=== PATIENT | male | born 1940 | race Caucasian/White ===

== ENCOUNTER → 2017-07-07 | Outpatient (CLI) | payer MEDICARE, BC | END | disposition home or self-care (01) | LOC: LABWHC1 16:22 | PROVIDERS: ATTEND Otolaryngology | DX: H91.93 Unspecified hearing loss, bilateral (principal); H93.3X3 Disorders of bilateral acoustic nerves | CPT/HCPCS: 36415; 82565 ==

== ENCOUNTER → 2017-07-10 | Outpatient (CLI) | payer MEDICARE, BC ==
--- NOTE | 2017-07-10 07:50 | MR ---
EXAMINATION TYPE: MR iac wo/w con DATE OF EXAM: 07/10/2017 COMPARISON: NONE HISTORY: 76-year-old male Acoustic nerve disorder / Hearing loss, left greater than right. TECHNIQUE: Multiplanar, multisequence images of the brain and brainstem were acquired before and aft er administration of 9mL IV Gadavist. Diffusion weighted imaging was performed. Additional coned-do wn sequences through the internal auditory canals and posterior cranial fossa before and after IV con trast administration. FINDINGS: Diffusion weighted images demonstrate no evidence of an acute ischemic lesion in the brain. T2/FLAIR weighted sequences show [id number] scattered burden of bright white matter change part icularly in the periventricular deep white matter regions of both cerebral hemispheres. Midline structures demonstrate normal morphology. The craniocervical junction is normal. There is moderate generalized supratentorial volume loss. The ventricles are of normal caliber. The right vertebral artery is very diminutive and may terminate as a PICA. There is no evidence of an acute intracranial hemorrhage, infarct, mass, mass-effect or an extra-axia l fluid collection. There is no cerebellopontine angle mass. The internal auditory canals are symmetric. Brainstem and skull base abnormalities are not seen. Post contrast images demonstrate no evidence of pathologic enhancement in the posterior cranial fossa or the internal auditory canals. Possible dehiscence of the superior right semicircular canal, refer to T2 coronal image 16, series 30 1. There is no abnormal enhancement of the labyrinths. There is mild scattered partial opacification of the mastoid air cells. Trace mucosal thickening ethm oid air cells and maxillary sinuses. Globes are intact. IMPRESSION: 1. Possible dehiscence of the superior right semicircular canal. Limited assessment by MRI. Correlate with patient's symptoms. If indicated, temporal bone CT could better assess. 2. Otherwise, unremarkable acoustic MRI. 3. [id number] scattered burden of T2 bright white matter change, nonspecific, likely relating t o small vessel ischemic disease. 4. Moderate cerebral atrophy. No acute intracranial abnormality seen.
== END ==
LOC: RADMRIMAIN 05:58
PROVIDERS: ATTEND Otolaryngology
DX: G31.9 Degenerative disease of nervous system, unspecified (principal); H91.93 Unspecified hearing loss, bilateral; H93.3X3 Disorders of bilateral acoustic nerves
CPT/HCPCS: 70553; A9581

== ENCOUNTER 2018-12-19 18:48 | Inpatient (IN) | payer MEDICARE, BC ==
[2018-12-19] MEDS ORDERED: IBUPROFEN 600 MG TAB PO STA (19:01)
[2018-12-19] MEDS: SODIUM CHLORIDE 0.9% 500 ML 500 ML IV SCH ×2 (19:20→19:21)
[2018-12-19 19:24] LABS: Basophils % (A) 0 %; Eosinophils % (A) 0 %; Lymphocytes # (A) 0.3 k/uL (1.0-4.8); Lymphocytes % (A) 3 %; MCH 29.5 pg (25.0-35.0); MCHC 34.3 g/dL (31.0-37.0); MCV 85.9 fL (80.0-100.0); Mean Platelet Volume 6.9; Monocytes # (A) 0.1 k/uL (0-1.0); Monocytes % (A) 1 %; Neutrophils # (A) 8.3 k/uL (1.3-7.7); Neutrophils % (A) 95 %; Platelet Count 186 k/uL (150-450); RBC 4.08 m/uL (4.30-5.90); RDW 14.6 % (11.5-15.5); WBC 8.7 k/uL (3.8-10.6)
[2018-12-19 19:31] LABS: Partial Thromboplastin Time 26.3 sec (22.0-30.0); Prothrombin Time 11.1 sec (9.0-12.0)
[2018-12-19 19:32] LABS: Albumin 4.1 g/dL (3.5-5.0); Calcium 9.7 mg/dL (8.4-10.2); Potassium 4.2 mmol/L (3.5-5.1); Total Bilirubin 1.5 mg/dL (0.2-1.3); Total Protein 7.4 g/dL (6.3-8.2)
[2018-12-19 19:44] LABS: Appearance,Urine Cloudy (Clear); Bacteria,Urine Occasional /hpf; Bilirubin,Urine Negative (Negative); Blood,Urine Moderate (Negative); Color,Urine Yellow; Glucose,Urine (UA) Negative (Negative); Ketones,Urine Negative (Negative); Leukocyte Esterase,Urine Large (Negative); Mucus,Urine Rare /hpf; Nitrite,Urine Negative (Negative); PH, Urine 5.5 (5.0-8.0); Protein,Urine 1+ (Negative); RBC,Urine 81 /hpf (0-5); Specific Gravity,Urine 1.022 (1.001-1.035); Squamous Epithelial Cell,Urine <1 /hpf (0-4); Urobilinogen,Urine <2.0 mg/dL (<2.0); WBC,Urine 87 /hpf (0-5)
[2018-12-19] MEDS ORDERED: cefTRIAXone IN SWFI 1,000 MG/10 ML SYRINGE IVP STA (19:57)
--- NOTE | 2018-12-19 20:29 | CT ---
EXAMINATION TYPE: CT brain wo con DATE OF EXAM: 12/19/2018 COMPARISON: None HISTORY: ams CT DLP: 1141.4 mGycm Automated exposure control for dose reduction was used. FINDINGS: There is cerebral cortical atrophy. There is no mass effect nor midline shift. There is no sign of in tracranial hemorrhage. The calvarium is intact. IMPRESSION: CEREBRAL ATROPHY. NO ACUTE INTRACRANIAL ABNORMALITY.
--- NOTE | 2018-12-19 20:34 | CT ---
EXAMINATION TYPE: CT abdomen pelvis w con DATE OF EXAM: 12/19/2018 COMPARISON: None HISTORY: fever, confusion CT DLP: 2127.4 mGycm Automated exposure control for dose reduction was used. TECHNIQUE: Helical acquisition of images was performed from the lung bases through the pelvis. CONTRAST: Performed without Oral Contrast and with IV Contrast, patient injected with 80cc mL of Isovue 300. FINDINGS: There is some mild atelectasis at the lung bases. There is no pericardial effusion. There is no pleur al effusion. Liver shows no focal defect. Spleen is intact. There is small hiatal hernia. There is no evidence of a pancreatic mass. Gallbladder appears normal. Bile ducts are not dilated. There is no adrenal mass. There is 2 cm hypodense area medial left kidney consistent with cortical cy st. There is no hydronephrosis. Ureters are not dilated. There is no retroperitoneal adenopathy. Abdo valentin aorta is atheromatous. Bladder distends smoothly. There is mild urinary bladder wall thickening . There is no free fluid in the pelvis. There is no inguinal hernia. There is no mesenteric edema. Ther e is no ascites or free air. Appendix is not seen. There is no sign of thickened appendix. There is n o evidence of bowel obstruction. There is multilevel spondylotic changes in the lumbar spine. There is no compression fracture. The sotero ny pelvis appears intact. There is posterior L5-S1 disc herniation with some calcification. There is moderate L5-S1 bony spinal stenosis. IMPRESSION: MILD INFILTRATES AND ATELECTASIS AT THE LUNG BASES. MILD URINARY BLADDER WALL THICKENING COULD RELATE TO NONSPECIFIC CYSTITIS. SPINAL STENOSIS AT L5-S1. MULTILEVEL SPONDYLOTIC CHANGES.
[2018-12-19] MEDS ORDERED: MORPHINE SULFATE 4 MG/ML SYRINGE IVP STA (20:40)
--- NOTE | 2018-12-19 21:21 | ED ---
General Adult HPI - General Chief complaint: Altered Mental Status Stated complaint: Weakness Time Seen by Provider: 12/19/18 19:05 Source: patient, family, EMS Mode of arrival: EMS Limitations: language barrier - History of Present Illness Initial comments: The patient is a 78-year-old male who is status post TURP [address] Magallanes who presents to the emergency department with reported confusion. states that the patient initially did well upon discharge after his procedure. He has been urinating without difficulty. She then noted that the patient became more sleepy yesterday. States that he took naps All Day. The Patient Then Awoke This Morning and was acting more confused. She asked him if he had been getting to the bathroom to urinate he reported that he did however the never saw this. He barely ate anything today. The patient needed to be assisted to get around the house. The states she had a lot of difficulty moving him and therefore called EMS. There is no report of any blunt head trauma. The patient arrives and has 103 temp. The patient is reporting to lumbar back pain. states that this is his chronic pain. He denies any dysuria, hematuria or difficulty voiding. No cough. Denies any melanotic stools or hematochezia. No chest pain or shortness of breath. No sick contacts or recent travel. The remainder of the HPI is limited because the patient's current mentation - Related Data Home Medications Medication Instructions Recorded Confirmed Enalapril/Hydrochlorothiazide 1 tab PO DAILY 01/22/17 12/19/18 [Enalapril-Hctz 10-25 mg Tablet] Levothyroxine Sodium [Synthroid] 75 mcg PO DAILY 01/22/17 12/19/18 Simvastatin [Zocor] 20 mg PO HS 01/22/17 12/19/18 Allergies Allergy/AdvReac Type Severity Reaction Status Date / Time Penicillins Allergy Rash/Hives Verified 12/19/18 19:46 Review of Systems ROS Statement: Those systems with pertinent positive or pertinent negative responses have been documented in the HPI. ROS Other: All systems not noted in ROS Statement are negative. Past Medical History Past Medical History: Hyperlipidemia, Hypertension, Prostate Disorder, Thyroid Disorder History of Any Multi-Drug Resistant Organisms: None Reported Additional Past Surgical History / Comment(s): COLONOSCOPY. BILAT CATARACTS Past Anesthesia/Blood Transfusion Reactions: No Reported Reaction Past Psychological History: No Psychological Hx Reported Smoking Status: Former smoker Past Alcohol Use History: None Reported Past Drug Use History: None Reported - Past Family History Mother Family Medical History: No Reported History General Exam Limitations: altered mental status General appearance: lethargic Head exam: Present: atraumatic, normocephalic, normal inspection Eye exam: Present: normal appearance, PERRL, EOMI. Absent: scleral icterus, c onjunctival injection, periorbital swelling ENT exam: Present: normal exam, mucous membranes moist Neck exam: Present: normal inspection. Absent: tenderness, meningismus, lymphadenopathy Respiratory exam: Present: rales (at the bases). Absent: respiratory distress, wheezes, rhonchi, stridor Cardiovascular Exam: Present: regular rate, normal rhythm, normal heart sounds. Absent: systolic murmur, diastolic murmur, rubs, gallop, clicks GI/Abdominal exam: Present: soft, normal bowel sounds. Absent: distended, tenderness, guarding, rebound, rigid exam: Present: other (mild swelling to penile shaft) Extremities exam: Present: normal inspection, full ROM, normal capillary refill. Absent: tenderness, pedal edema, joint swelling, calf tenderness Back exam: Present: normal inspection Neurological exam: Present: alert, oriented X3, CN II-XII intact Psychiatric exam: Present: normal affect, normal mood Skin exam: Present: warm, dry, intact, normal color. Absent: rash Course Vital Signs 12/19/18 12/19/18 12/19/18 19:02 19:22 20:06 Temperature 102.8 F H 101.3 F H Pulse Rate 93 90 Pulse Rate [ Pulse Oximetery ] Respiratory 18 18 Rate Blood Pressure 140/77 140/77 Blood Pressure [Right Arm] O2 Sat by Pulse 98 98 Oximetry 12/19/18 12/19/18 12/19/18 20:26 22:05 22:08 Temperature 97.4 F L 98.3 F Pulse Rate 93 89 Pulse Rate [ 89 Pulse Oximetery ] Respiratory 20 18 20 Rate Blood Pressure 120/56 102/58 Blood Pressure 91/45 [Right Arm] O2 Sat by Pulse 95 93 L 93 L Oximetry EKG Findings - EKG Comments: EKG Findings:: EKG demonstrates a sinus rhythm with first-degree AV block. Rate of 93. UT interval 264. QRS 92. QTC 460. No acute ST segment examination depressions concerning for ischemic changes Medical Decision Making - Medical Decision Making Upon arrival the patient is placed into room 5. A thorough history and physical exam is performed. IV was established by EMS. I did provide the patient with a 2 L bolus of normal saline for sepsis protocol. He is also given Motrin for fever control. I did recommend laboratory studies and a urinalysis. I recommended a chest x-ray, CT neck patient's brain and abdomen. does agree to this. We did bladder scan the patient's. He does have 30 mL on bladder scan. He then voided approximately 40 mL. Urine is dark. Physical exam demonstrates mild swelling to the patient's penile shaft just below the glans. I did perform a rectal exam and the patient does have tenderness to palpation of the prostate. Laboratory studies demonstrate a lactic acid of 3.9. CPK is elevated at 471. Urinalysis shows moderate blood, large leukocyte esterase, 81 red blood cells, 87 red blood cells, occasional bacteria and rare mucous. Influenza is negative. Chest x-ray demonstrates cardiomegaly with mild pulmonary fibrosis. Abdomen and pelvis CT demonstrates signs of cystitis. There is mild infiltrate at the lung bases. Spinal stenosis at L5-S1. CT of the brain demonstrates cerebral atrophy. I discussed these results with the patient's family. He is much more arousable in the exam room. I did recommend hospital admission. I called and discussed the case with Dr. Viera who accepted admission. Called and discussed the case with Dr. Silva will be aware of the patient's consult. I will cover the patient with Levaquin because of the possibility of pneumonia. The patient remained in hemodynamically stable condition and was transported to the floor - Lab Data Result diagrams: 12/21/18 11:33 12/21/18 05:43 Lab Results 12/19/18 12/19/18 12/19/18 Range/Units 19:10 19:10 19:10 WBC 8.7 (3.8-10.6) k/uL RBC 4.08 L (4.30-5.90) m/uL Hgb 12.0 L (13.0-17.5) gm/dL Hct 35.0 L (39.0-53.0) % MCV 85.9 (80.0-100.0) fL MCH 29.5 (25.0-35.0) pg MCHC 34.3 (31.0-37.0) g/dL RDW 14.6 (11.5-15.5) % Plt Count 186 (150-450) k/uL Neutrophils % 95 % Lymphocytes % 3 % Monocytes % 1 % Eosinophils % 0 % Basophils % 0 % Neutrophils # 8.3 H (1.3-7.7) k/uL Lymphocytes # 0.3 L (1.0-4.8) k/uL Monocytes # 0.1 (0-1.0) k/uL Eosinophils # 0.0 (0-0.7) k/uL Basophils # 0.0 (0-0.2) k/uL PT (9.0-12.0) sec INR (<1.2) APTT (22.0-30.0) sec Sodium 139 (137-145) mmol/L Potassium 4.2 (3.5-5.1) mmol/L Chloride 104 (98-107) mmol/L Carbon Dioxide 22 (22-30) mmol/L Anion Gap 13 mmol/L BUN 32 H (9-20) mg/dL Creatinine 1.17 (0.66-1.25) mg/dL Est GFR (CKD-EPI)AfAm 69 (>60 ml/min/1.73 sqM) Est GFR (CKD-EPI)NonAf 59 (>60 ml/min/1.73 sqM) Glucose 139 H (74-99) mg/dL Lactic Ac Sepsis Rflx Plasma Lactic Acid Eric 3.9 H* (0.7-2.0) mmol/L Calcium 9.7 (8.4-10.2) mg/dL Total Bilirubin 1.5 H (0.2-1.3) mg/dL AST 57 (17-59) U/L ALT 57 (21-72) U/L Alkaline Phosphatase 68 (38-126) U/L Creatine Kinase (55-170) U/L Total Protein 7.4 (6.3-8.2) g/dL Albumin 4.1 (3.5-5.0) g/dL Urine Color Urine Appearance (Clear) Urine pH (5.0-8.0) Ur Specific [place] (1.001-1.035) Urine Protein (Negative) Urine Glucose (UA) (Negative) Urine Ketones (Negative) Urine Blood (Negative) Urine Nitrite (Negative) Urine Bilirubin (Negative) Urine Urobilinogen (<2.0) mg/dL Ur Leukocyte Esterase (Negative) Urine RBC (0-5) /hpf Urine WBC (0-5) /hpf Ur Squamous Epith Cells (0-4) /hpf Urine Bacteria (None) /hpf Urine Mucus (None) /hpf Influenza Type A RNA (Not Detectd) Influenza Type B (PCR) (Not Detectd) 12/19/18 12/19/18 12/19/18 Range/Units 19:10 19:10 19:15 WBC (3.8-10.6) k/uL RBC (4.30-5.90) m/uL Hgb (13.0-17.5) gm/dL Hct (39.0-53.0) % MCV (80.0-100.0) fL MCH (25.0-35.0) pg MCHC (31.0-37.0) g/dL RDW (11.5-15.5) % Plt Count (150-450) k/uL Neutrophils % % Lymphocytes % % Monocytes % % Eosinophils % % Basophils % % Neutrophils # (1.3-7.7) k/uL Lymphocytes # (1.0-4.8) k/uL Monocytes # (0-1.0) k/uL Eosinophils # (0-0.7) k/uL Basophils # (0-0.2) k/uL PT 11.1 (9.0-12.0) sec INR 1.0 (<1.2) APTT 26.3 (22.0-30.0) sec Sodium (137-145) mmol/L Potassium (3.5-5.1) mmol/L Chloride (98-107) mmol/L Carbon Dioxide (22-30) mmol/L Anion Gap mmol/L BUN (9-20) mg/dL Creatinine (0.66-1.25) mg/dL Est GFR (CKD-EPI)AfAm (>60 ml/min/1.73 sqM) Est GFR (CKD-EPI)NonAf (>60 ml/min/1.73 sqM) Glucose (74-99) mg/dL Lactic Ac Sepsis Rflx Plasma Lactic Acid Eric (0.7-2.0) mmol/L Calcium (8.4-10.2) mg/dL Total Bilirubin (0.2-1.3) mg/dL AST (17-59) U/L ALT (21-72) U/L Alkaline Phosphatase (38-126) U/L Creatine Kinase 471 H (55-170) U/L Total Protein (6.3-8.2) g/dL Albumin (3.5-5.0) g/dL Urine Color Urine Appearance (Clear) Urine pH (5.0-8.0) Ur Specific [place] (1.001-1.035) Urine Protein (Negative) Urine Glucose (UA) (Negative) Urine Ketones (Negative) Urine Blood (Negative) Urine Nitrite (Negative) Urine Bilirubin (Negative) Urine Urobilinogen (<2.0) mg/dL Ur Leukocyte Esterase (Negative) Urine RBC (0-5) /hpf Urine WBC (0-5) /hpf Ur Squamous Epith Cells (0-4) /hpf Urine Bacteria (None) /hpf Urine Mucus (None) /hpf Influenza Type A RNA Not Detected (Not Detectd) Influenza Type B (PCR) Not Detected (Not Detectd) 12/19/18 12/19/18 Range/Units 19:30 19:33 WBC (3.8-10.6) k/uL RBC (4.30-5.90) m/uL Hgb (13.0-17.5) gm/dL Hct (39.0-53.0) % MCV (80.0-100.0) fL MCH (25.0-35.0) pg MCHC (31.0-37.0) g/dL RDW (11.5-15.5) % Plt Count (150-450) k/uL Neutrophils % % Lymphocytes % % Monocytes % % Eosinophils % % Basophils % % Neutrophils # (1.3-7.7) k/uL Lymphocytes # (1.0-4.8) k/uL Monocytes # (0-1.0) k/uL Eosinophils # (0-0.7) k/uL Basophils # (0-0.2) k/uL PT (9.0-12.0) sec INR (<1.2) APTT (22.0-30.0) sec Sodium (137-145) mmol/L Potassium (3.5-5.1) mmol/L Chloride (98-107) mmol/L Carbon Dioxide (22-30) mmol/L Anion Gap mmol/L BUN (9-20) mg/dL Creatinine (0.66-1.25) mg/dL Est GFR (CKD-EPI)AfAm (>60 ml/min/1.73 sqM) Est GFR (CKD-EPI)NonAf (>60 ml/min/1.73 sqM) Glucose (74-99) mg/dL Lactic Ac Sepsis Rflx Y Plasma Lactic Acid Eric (0.7-2.0) mmol/L Calcium (8.4-10.2) mg/dL Total Bilirubin (0.2-1.3) mg/dL AST (17-59) U/L ALT (21-72) U/L Alkaline Phosphatase (38-126) U/L Creatine Kinase (55-170) U/L Total Protein (6.3-8.2) g/dL Albumin (3.5-5.0) g/dL Urine Color Yellow Urine Appearance Cloudy (Clear) Urine pH 5.5 (5.0-8.0) Ur Specific [place] 1.022 (1.001-1.035) Urine Protein 1+ H (Negative) Urine Glucose (UA) Negative (Negative) Urine Ketones Negative (Negative) Urine Blood Moderate H (Negative) Urine Nitrite Negative (Negative) Urine Bilirubin Negative (Negative) Urine Urobilinogen <2.0 (<2.0) mg/dL Ur Leukocyte Esterase Large H (Negative) Urine RBC 81 H (0-5) /hpf Urine WBC 87 H (0-5) /hpf Ur Squamous Epith Cells <1 (0-4) /hpf Urine Bacteria Occasional H (None) /hpf Urine Mucus Rare H (None) /hpf Influenza Type A RNA (Not Detectd) Influenza Type B (PCR) (Not Detectd) Disposition Clinical Impression: Uremic encephalopathy, Fever, Status post recent transurethral resection of prostate Disposition: ADMITTED IP TO THIS HOSP Condition: Serious Is patient prescribed a controlled substance at d/c from ED?: No Decision to Admit Reason: Admit from EC Decision Date: 12/19/18 Decision Time: 21:40
--- NOTE | 2018-12-19 21:27 | XR ---
EXAMINATION TYPE: XR chest 2V DATE OF EXAM: 12/19/2018 COMPARISON: NONE HISTORY: Weakness TECHNIQUE: Frontal and lateral views of the chest are obtained. FINDINGS: Heart is enlarged. There is no gross heart failure. There is coarsening of the lung markin gs. There is no pulmonary consolidation. Thoracic aorta is atheromatous. IMPRESSION: Cardiomegaly. Mild pulmonary fibrosis. No heart failure.
[2018-12-19] MEDS ORDERED: LEVOFLOXACIN 750MG-D5W PMX 750 MG in DEXTROSE/WATER 1 150ML.BAG IVPB STA (21:41)
[2018-12-19] MEDS ORDERED: NALOXONE 0.4 MG/ML 1 ML VIAL IV PRN (21:42)
[2018-12-19] MEDS ORDERED: MORPHINE SULFATE 4 MG/ML SYRINGE IV PRN (21:42)
[2018-12-19 22:49] VITALS: BMI 33.1
[2018-12-20] MEDS: LEVOTHYROXINE 75 MCG TAB PO SCH (05:55)
[2018-12-20 06:19] LABS: Glucose,Whole Blood 131 mg/dL (75-99)
[2018-12-20 06:33] LABS: Basophils # (A) 0.1 k/uL (0-0.2); Basophils % (A) 1 %; Eosinophils % (A) 0 %; HCT 33.6 % (39.0-53.0); HGB 11.2 gm/dL (13.0-17.5); Lymphocytes # (A) 0.6 k/uL (1.0-4.8); Lymphocytes % (A) 6 %; MCH 29.6 pg (25.0-35.0); MCHC 33.4 g/dL (31.0-37.0); MCV 88.7 fL (80.0-100.0); Mean Platelet Volume 6.6; Monocytes # (A) 0.3 k/uL (0-1.0); Monocytes % (A) 3 %; Neutrophils % (A) 89 %; Platelet Count 163 k/uL (150-450); RBC 3.79 m/uL (4.30-5.90); RDW 14.8 % (11.5-15.5); WBC 10.2 k/uL (3.8-10.6)
[2018-12-20 06:46] LABS: Calcium 8.8 mg/dL (8.4-10.2); Potassium 3.9 mmol/L (3.5-5.1)
[2018-12-20] MEDS ORDERED: LISINOPRIL 20 MG TAB PO SCH (09:00)
[2018-12-20] MEDS ORDERED: HYDROCHLOROTHIAZIDE 25 MG TAB PO SCH (09:00)
[2018-12-20] MEDS: IBUPROFEN 400 MG TAB PO PRN ×2 (09:04→20:21)
--- NOTE | 2018-12-20 09:42 | P.CRDCN ---
History of Present Illness Consult date: 12/20/18 Consult reason: other Chief complaint: Fever back pain and not feeling well History of present illness: 78-year-old gentleman with history of hypothyroidism and dyslipidemia and hypertension who had a prostate surgery recently came to hospital complaining of back pain fever or fatigue and tiredness. He is been diagnosed with possible urosepsis started on IV antibiotics and admitted to hospital. His EKG initially showed what appears like a normal sinus rhythm with prolonged first-degree AV block. Subsequently patient has had accelerated junctional rhythm and second degree heart block intermittently. There are no pauses of more than 3 seconds. There is no history of syncope. There is no history of exertional fatigue and shortness of breath. There is no prior cardiac history of coronary artery disease or congestive heart failure. There is no history of atrial fibrillation. I will obtain a 2-D echo on him to evaluate his LV function and check his thyroid functions and watch him on telemetric. I patient is not in atrial fibrillation and there is no evidence of high-grade AV block at this time. If patient develops symptomatic high-grade AV block he will need a permanent pacemaker. If he declares himself has atrial fibrillation I'm going to start him on an anticoagulant. Review of Systems Constitutional: Reports fatigue Eyes: bilateral as per HPI Ears: bilateral: decreased hearing Ears, nose, mouth and throat: Reports as per HPI Cardiovascular: Denies as per HPI, Denies chest pain, Denies claudication, Denies decreased exercise tolerance, Denies dyspnea on exertion, Denies edema, Denies high blood pressure, Denies irregular heart beat, Denies leg edema, Denies lightheadedness, Denies orthopnea, Denies palpitations, Denies paroxysmal nocturnal dyspnea, Denies phlebitis, Denies rapid heart beat, Denies shortness of breath, Denies syncope Respiratory: Denies as per HPI, Denies congestion, Denies cough, Denies cough with sputum, Denies dyspnea, Denies excessive sputum, Denies hemoptysis, Denies home oxygen, Denies pain, Denies pain on inspiration, Denies pleurisy, Denies respiratory infections, Denies sleep apnea, Denies snoring, Denies wheezing Gastrointestinal: Denies as per HPI, Denies abdominal pain, Denies belching, Denies bloating, Denies BRBPR, Denies change in bowel habits, Denies coffee ground emesis, Denies constipation, Denies diarrhea, Denies dyspepsia, Denies early satiety, Denies excessive gas, Denies heartburn, Denies hematemesis, Denies hematochezia, Denies indigestion, Denies jaundice, Denies lactose intolerance, Denies loss of appetite, Denies melena, Denies nausea, Denies vomiting Genitourinary: Reports flank pain, Reports hematuria Musculoskeletal: Reports low back pain Musculoskeletal: absent: ankle pain Integumentary: Denies as per HPI, Denies acne, Denies boils, Denies brittle nails, Denies change in hair/nails, Denies color changes, Denies darkening of sk in, Denies depigmentation, Denies dryness, Denies foot/leg ulcers, Denies growths, Denies hirsutism, Denies lesions, Denies onychomycosis, Denies pruritus, Denies rash, Denies sores, Denies striae, Denies unusual bruising, Denies wounds Neurological: Denies as per HPI, Denies aphasia, Denies ataxia, Denies balance difficulties, Denies burning pain, Denies change in mentation, Denies change in smell/taste, Denies change in speech, Denies confusion, Denies convulsions, Den ies double vision, Denies gait dysfunction, Denies head injury, Denies headaches, Denies hearing difficulties, Denies lack of coordination, Denies loss of vision, Denies memory loss, Denies migraines, Denies motor disturbance, Denies numbness, Denies paralysis, Denies paresthesias, Denies seizures, Denies sensory deficit, Denies spasticity, Denies syncope, Denies tic, Denies tingling, Denies transient paralysis, Denies tremors, Denies vertigo, Denies weakness, Denies visual changes Psychiatric: Denies as per HPI, Denies anhedonia, Denies anxiety, Denies anxiety attacks, Denies change in appetite, Denies change in libido, Denies change in sleep habits, Denies confusion, Denies depression, Denies difficulty concentrating, Denies disorientation, Denies hallucinations, Denies hopelessness, Denies hypersomnia, Denies insomnia, Denies irritability, Denies memory loss, Denies mood swings, Denies paranoia, Denies sadness/tearfulness, Denies sleep disturbances, Denies suicidal ideation Endocrine: Denies as per HPI, Denies cold intolerance, Denies deepening of the voice, Denies excessive sweating, Denies excessive thirst, Denies fatigue, Jus es flushing, Denies heat intolerance, Denies high blood sugars, Denies increase in ring/shoe/hat size, Denies low blood sugars, Denies nocturia, Denies palpitations, Denies polydipsia, Denies polyphagia, Denies polyuria, Denies proptosis, Denies recent glucocorticoid use, Denies thyroid mass, Denies weight change Hematologic/Lymphatic: Denies as per HPI, Denies easy bleeding, Denies easy bruising, Denies lymphadenopathy, Denies lymphedema, Denies thrombophilia Allergic/Immunologic: Denies as per HPI, Denies allergic rhinitis, Denies anaphylaxis, Denies angioedema, Denies gluten intolerance, Denies persistent infections, Denies seasonal allergies, Denies urticaria, Denies wheezing Past Medical History Past Medical History: Hyperlipidemia, Hypertension, Prostate Disorder, Thyroid Disorder History of Any Multi-Drug Resistant Organisms: None Reported Additional Past Surgical History / Comment(s): COLONOSCOPY. BILAT CATARACTS Past Anesthesia/Blood Transfusion Reactions: No Reported Reaction Past Psychological History: No Psychological Hx Reported Smoking Status: Former smoker Past Alcohol Use History: None Reported Past Drug Use History: None Reported - Past Family History Mother Family Medical History: No Reported History Medications and Allergies Home Medications Medication Instructions Recorded Confirmed Type Enalapril/Hydrochlorothiazide 1 tab PO DAILY 01/22/17 12/19/18 History [Enalapril-Hctz 10-25 mg Tablet] Levothyroxine Sodium [Synthroid] 75 mcg PO DAILY 01/22/17 12/19/18 History Simvastatin [Zocor] 20 mg PO HS 01/22/17 12/19/18 History Allergies Allergy/AdvReac Type Severity Reaction Status Date / Time Penicillins Allergy Rash/Hives Verified 12/19/18 19:46 Physical Exam Vitals: Vital Signs Temp Pulse Pulse Resp BP BP Pulse Ox 12/20/18 03:52 98.4 F 78 21 120/77 94 L 12/19/18 23:41 98.1 F 82 20 96/58 94 L 12/19/18 22:08 98.3 F 89 20 91/45 93 L 12/19/18 22:05 97.4 F L 89 18 102/58 93 L 12/19/18 20:26 93 20 120/56 95 12/19/18 20:06 101.3 F H 12/19/18 19:22 90 18 140/77 98 12/19/18 19:02 102.8 F H 93 18 140/77 98 Intake and Output 12/19/18 12/20/18 12/20/18 22:59 06:59 14:59 Intake Total 75 240 Output Total 400 400 Balance -325 -160 Intake: Oral 75 240 Output: Urine 400 400 Other: Voiding Method Toilet Urinal # Voids 1 Weight 104.871 kg 109.4 kg General: The patient is awake and alert, in no distress, and does not appear acutely ill. Skin: Skin is warm and dry and no rashes or lesions are noted. Eye: Pupils are equal, round and reactive to light, extra-ocular movements are intact; there is normal conjunctiva bilaterally. Ears, nose, mouth and throat: There are moist mucous membranes and no oral lesions. Neck: The neck is supple, there is no tenderness or JVD. Cardiovascular: There is a regular rate and rhythm. No murmur, rub or gallop is appreciated. Respiratory: Lungs are clear to auscultation, respirations are non-labored, breath sounds are equal. Gastrointestinal: Soft, non-distended, non-tender abdomen without masses or organomegaly noted. There is no rebound or guarding present. Bowel sounds are unremarkable. Back: There is no tenderness to palpation in the midline. There is no obvious deformity. Musculoskeletal: Normal ROM, no tenderness, There is no pedal edema. There is no calf tenderness or swelling. Extremities: No edema. Vascular: Femoral pulse is normal. Posterior tibial pulses are normal .Dorsalis pedis is palpable. Neurological: CN II-XII intact. There are no obvious motor or sensory deficits. Speech is normal. Psychiatric: Cooperative, appropriate mood & affect, normal judgment. Results 12/20/18 05:53 12/20/18 05:53 Cardiac Enzymes 12/19/18 Range/Units 19:10 AST 57 (17-59) U/L Coagulation 12/19/18 Range/Units 19:10 PT 11.1 (9.0-12.0) sec APTT 26.3 (22.0-30.0) sec CBC 12/19/18 12/20/18 Range/Units 19:10 05:53 WBC 8.7 10.2 (3.8-10.6) k/uL RBC 4.08 L 3.79 L (4.30-5.90) m/uL Hgb 12.0 L 11.2 L (13.0-17.5) gm/dL Hct 35.0 L 33.6 L (39.0-53.0) % Plt Count 186 163 (150-450) k/uL Comprehensive Metabolic Panel 12/19/18 12/20/18 Range/Units 19:10 05:53 Sodium 139 141 (137-145) mmol/L Potassium 4.2 3.9 (3.5-5.1) mmol/L Chloride 104 108 H (98-107) mmol/L Carbon Dioxide 22 21 L (22-30) mmol/L BUN 32 H 30 H (9-20) mg/dL Creatinine 1.17 0.95 (0.66-1.25) mg/dL Glucose 139 H 126 H (74-99) mg/dL Calcium 9.7 8.8 (8.4-10.2) mg/dL AST 57 (17-59) U/L ALT 57 (21-72) U/L Alkaline Phosphatase 68 (38-126) U/L Total Protein 7.4 (6.3-8.2) g/dL Albumin 4.1 (3.5-5.0) g/dL Current Medications Generic Name Dose Route Start Last Admin Trade Name Freq PRN Reason Stop Dose Admin Atorvastatin Calcium 10 mg 12/20/18 21:00 Lipitor PO HS HUGO Hydrochlorothiazide 25 mg 12/20/18 09:00 12/20/18 08:56 Hydrodiuril PO 25 mg DAILY HUGO Administration Ibuprofen 600 mg 12/19/18 21:42 12/20/18 09:04 Motrin PO 600 mg Q6HR PRN Administration Mild Pain or Fever > 100.5 Levothyroxine Sodium 75 mcg 12/20/18 06:30 12/20/18 05:55 Synthroid PO 75 mcg DAILY@0630 HUGO Administration Lisinopril 20 mg 12/20/18 09:00 12/20/18 08:56 Zestril PO 20 mg DAILY HUGO Administration Morphine Sulfate 4 mg 12/19/18 21:42 Morphine Sulfate (Inj) IV Q4HR PRN Severe Pain Naloxone HCl 0.2 mg 12/19/18 21:42 Narcan IV Q2M PRN Opioid Reversal Intake and Output 12/19/18 12/20/18 12/20/18 22:59 06:59 14:59 Intake Total 75 240 Output Total 400 400 Balance -325 -160 Intake: Oral 75 240 Output: Urine 400 400 Other: Voiding Method Toilet Urinal # Voids 1 Weight 104.871 kg 109.4 kg 12/20/18 05:53 12/20/18 05:53 EKG Interpretations (text) Sinus rhythm with prolonged first-degree AV block Intermittent episodes of second-degree heart block Junctional rhythm Assessment and Plan Assessment: Status post recent prostate surgery with possible sepsis Hypertension Lipidemia Second-degree heart block Continue IV antibiotics blood cultures 2-D echo to check thyroid functions continue to watch him on telemetric
[2018-12-20 10:20] LABS: T4, Free (Free Thyroxine) 0.96 ng/dL (0.78-2.19)
[2018-12-20] MEDS ORDERED: VANCOMYCIN IV PER PHARMACY 1 EACH MISC MISCELLANE PRN (11:09)
[2018-12-20] MEDS ORDERED: VANCOMYCIN 2,000 MG in SODIUM CHLORIDE 0.9% 500 ML 500 ML IVPB ONE (11:45)
[2018-12-20 12:01] LABS: Glucose,Whole Blood 162 mg/dL (75-99)
--- NOTE | 2018-12-20 12:01 | ECHOF ---
Referral Reason:afib MEASUREMENTS -------- HEIGHT: 177.8 cm WEIGHT: 109.3 kg BP: 120/77 RVIDd: 3.4 cm (< 3.3) IVSd: 1.6 cm (0.6 - 1.1) LVIDd: 4.0 cm (3.9 - 5.3) LVPWd: 1.5 cm (0.6 - 1.1) IVSs: 1.8 cm LVIDs: 3.5 cm LVPWs: 2.0 cm LA Diam: 3.8 cm (2.7 - 3.8) LAESV Index (A-L): 39.10 ml/m Ao Diam: 3.9 cm (2.0 - 3.7) AV Cusp: 2.0 cm (1.5 - 2.6) MV EXCURSION: 20.477 mm (> 18.000) MV EF SLOPE: 132 mm/s (70 - 150) EPSS: 0.5 cm MV E Marshal: 1.64 m/s MV DecT: 280 ms MV A Marshal: 1.56 m/s MV E/A Ratio: 1.05 AV maxP.07 mmHg AV meanP.15 mmHg RAP: 5.00 mmHg RVSP: 47.78 mmHg FINDINGS -------- Atrial fibrillation. This was a technically adequate study. The left ventricular size is normal. There is moderate concentric left ventricular hypertrophy. O verall left ventricular systolic function is normal with, an EF between 60 - 65 %. The right ventricle is mildly enlarged. LA is moderately dilated 34-39 ml/m2 The right atrium is normal in size. 5 ml of Lumason was utilized for enhancement of images. Interatrial and interventricular septum intact. There is mild aortic valve sclerosis. There is mild aortic stenosis present. Peak/mean gradient a cross the Aortic Valve is 9.07mmHg / 5.15mmHg. The mitral valve leaflets are moderately thickened. Moderate mitral annular calcification present. There is trace to mild mitral regurgitation. The peak and mean MV gradients are 33.67mmHg 9.34mm Hg as measured by doppler. Moderate mitral stenosis. Mild tricuspid regurgitation present. There is mild to moderate pulmonary hypertension. The right ventricular systolic pressure, as measured by Doppler, is 47.78mmHg. The pulmonic valve was not well visualized. The aortic root is dilated measuring 3.9cm. Normal inferior vena cava with normal inspiratory collapse consistent with estimated right atrial pre ssure of 5 mmHg. The inferior vena cava is mildly dilated. There is no pericardial effusion. CONCLUSIONS -------- 1. Atrial fibrillation. 2. This was a technically adequate study. 3. The left ventricular size is normal. 4. There is moderate concentric left ventricular hypertrophy. 5. Overall left ventricular systolic function is normal with, an EF between 60 - 65 %. 6. The right ventricle is mildly enlarged. 7. LA is moderately dilated 34-39 ml/m2 8. The right atrium is normal in size. 9. 5 ml of Lumason was utilized for enhancement of images. 10. Interatrial and interventricular septum intact. 11. There is mild aortic valve sclerosis. 12. There is mild aortic stenosis present. 13. Peak/mean gradient across the Aortic Valve is 9.07mmHg / 5.15mmHg. 14. The peak and mean MV gradients are 33.67mmHg 9.34mmHg as measured by doppler. 15. Moderate mitral stenosis. 16. Mild tricuspid regurgitation present. 17. There is mild to moderate pulmonary hypertension. 18. The right ventricular systolic pressure, as measured by Doppler, is 47.78mmHg. 19. The pulmonic valve was not well visualized. 20. The aortic root is dilated measuring 3.9cm. 21. Normal inferior vena cava with normal inspiratory collapse consistent with estimated right atrial pressure of 5 mmHg. 22. The inferior vena cava is mildly dilated. 23. There is no pericardial effusion. MANAGER STORAGE: Luna Wall RDCS
--- NOTE | 2018-12-20 15:38 | P.HPIM ---
History of Present Illness 72-year-old pleasant gentleman came in with complaints of generalized weakness tiredness confusion fever chills has been going on for 2 days confusion since yesterday morning. Patient is excessively drowsy and sleepy. Patient is found to be febrile with significantly abnormal urine because of which patient is admitted for possible urinary tract infection patient also has bacteremia with group B streptococci. Repeat blood cultures will be obtained. Patient during the hospitalization was found to have second degree type I AV block because of which cardiology was consulted overnight echocardiogram was obtained any valvular vegetations. Patient denied any significant cough does have history of COPD. Chest x-ray did not show any pneumonic process except for mild pulmonary fibrosis patient did undergo transurethral resection of prostate about 10 days ago. Review of Systems REVIEW OF SYSTEMS: CONSTITUTIONAL: As mentioned in HPI HEENT: No recent visual problems or hearing problems. Denied any sore throat. CARDIOVASCULAR: No chest pain, orthopnea, PND, no palpitations, no syncope. PULMONARY: No shortness of breath, no cough, no hemoptysis. GASTROINTESTINAL: No diarrhea, no nausea, no vomiting, no abdominal pain. NEUROLOGICAL: No headaches, no weakness, no numbness. HEMATOLOGICAL: Denies any bleeding or petechiae. GENITOURINARY: Denies any burning micturition, frequency, or urgency. MUSCULOSKELETAL/RHEUMATOLOGICAL: Denies any joint pain, swelling, or any muscle pain. ENDOCRINE: Denies any polyuria or polydipsia. The rest of the 14-point review of systems is negative. Past Medical History Past Medical History: Hyperlipidemia, Hypertension, Prostate Disorder, Thyroid Disorder History of Any Multi-Drug Resistant Organisms: None Reported Additional Past Surgical History / Comment(s): COLONOSCOPY. BILAT CATARACTS Past Anesthesia/Blood Transfusion Reactions: No Reported Reaction Past Psychological History: No Psychological Hx Reported Smoking Status: Former smoker Past Alcohol Use History: None Reported Past Drug Use History: None Reported - Past Family History Mother Family Medical History: No Reported History Medications and Allergies Home Medications Medication Instructions Recorded Confirmed Type Enalapril/Hydrochlorothiazide 1 tab PO DAILY 01/22/17 12/19/18 History [Enalapril-Hctz 10-25 mg Tablet] Levothyroxine Sodium [Synthroid] 75 mcg PO DAILY 01/22/17 12/19/18 History Simvastatin [Zocor] 20 mg PO HS 01/22/17 12/19/18 History Allergies Allergy/AdvReac Type Severity Reaction Status Date / Time Penicillins Allergy Rash/Hives Verified 12/19/18 19:46 Physical Exam Vitals: Vital Signs Temp Pulse Pulse Resp BP BP Pulse Ox 12/20/18 08:00 98.4 F 77 105/63 98 12/20/18 03:52 98.4 F 78 21 120/77 94 L 12/19/18 23:41 98.1 F 82 20 96/58 94 L 12/19/18 22:08 98.3 F 89 20 91/45 93 L 12/19/18 22:05 97.4 F L 89 18 102/58 93 L 12/19/18 20:26 93 20 120/56 95 12/19/18 20:06 101.3 F H 12/19/18 19:22 90 18 140/77 98 12/19/18 19:02 102.8 F H 93 18 140/77 98 Intake and Output 12/20/18 12/20/18 12/20/18 06:59 14:59 22:59 Intake Total 75 480 Output Total 400 400 600 Balance -325 80 -600 Intake: Oral 75 480 Output: Urine 400 400 600 Other: Voiding Method Toilet Urinal # Voids 1 Weight 109.4 kg PHYSICAL EXAMINATION: GENERAL: The patient is alert and oriented x3, not in any acute distress. Well developed, well nourished. HEENT: Pupils are round and equally reacting to light. EOMI. No scleral icterus. No conjunctival pallor. Normocephalic, atraumatic. No pharyngeal erythema. No thyromegaly. CARDIOVASCULAR: S1 and S2 present. No murmurs, rubs, or gallops. PULMONARY: Chest is clear to auscultation, no wheezing or crackles. ABDOMEN: Soft, nontender, nondistended, normoactive bowel sounds. No palpable organomegaly. MUSCULOSKELETAL: No joint swelling or deformity. EXTREMITIES: No cyanosis, clubbing, or pedal edema. NEUROLOGICAL: Gross neurological examination did not reveal any focal deficits. SKIN: No rashes. Results CBC & Chem 7: 12/20/18 05:53 12/20/18 05:53 Labs: Abnormal Lab Results - Last 24 Hours (Table) 12/19/18 12/19/18 12/19/18 Range/Units 19:10 19:10 19:10 RBC 4.08 L (4.30-5.90) m/uL Hgb 12.0 L (13.0-17.5) gm/dL Hct 35.0 L (39.0-53.0) % Neutrophils # 8.3 H (1.3-7.7) k/uL Lymphocytes # 0.3 L (1.0-4.8) k/uL Chloride (98-107) mmol/L Carbon Dioxide (22-30) mmol/L BUN 32 H (9-20) mg/dL Glucose 139 H (74-99) mg/dL POC Glucose (mg/dL) (75-99) mg/dL Plasma Lactic Acid Eric 3.9 H* (0.7-2.0) mmol/L Total Bilirubin 1.5 H (0.2-1.3) mg/dL Creatine Kinase (55-170) U/L Urine Protein (Negative) Urine Blood (Negative) Ur Leukocyte Esterase (Negative) Urine RBC (0-5) /hpf Urine WBC (0-5) /hpf Urine Bacteria (None) /hpf Urine Mucus (None) /hpf 12/19/18 12/19/18 12/20/18 Range/Units 19:10 19:30 05:53 RBC 3.79 L (4.30-5.90) m/uL Hgb 11.2 L (13.0-17.5) gm/dL Hct 33.6 L (39.0-53.0) % Neutrophils # 9.0 H (1.3-7.7) k/uL Lymphocytes # 0.6 L (1.0-4.8) k/uL Chloride (98-107) mmol/L Carbon Dioxide (22-30) mmol/L BUN (9-20) mg/dL Glucose (74-99) mg/dL POC Glucose (mg/dL) (75-99) mg/dL Plasma Lactic Acid Eric (0.7-2.0) mmol/L Total Bilirubin (0.2-1.3) mg/dL Creatine Kinase 471 H (55-170) U/L Urine Protein 1+ H (Negative) Urine Blood Moderate H (Negative) Ur Leukocyte Esterase Large H (Negative) Urine RBC 81 H (0-5) /hpf Urine WBC 87 H (0-5) /hpf Urine Bacteria Occasional H (None) /hpf Urine Mucus Rare H (None) /hpf 12/20/18 12/20/18 12/20/18 Range/Units 05:53 06:18 11:50 RBC (4.30-5.90) m/uL Hgb (13.0-17.5) gm/dL Hct (39.0-53.0) % Neutrophils # (1.3-7.7) k/uL Lymphocytes # (1.0-4.8) k/uL Chloride 108 H (98-107) mmol/L Carbon Dioxide 21 L (22-30) mmol/L BUN 30 H (9-20) mg/dL Glucose 126 H (74-99) mg/dL POC Glucose (mg/dL) 131 H 162 H (75-99) mg/dL Plasma Lactic Acid Eric (0.7-2.0) mmol/L Total Bilirubin (0.2-1.3) mg/dL Creatine Kinase (55-170) U/L Urine Protein (Negative) Urine Blood (Negative) Ur Leukocyte Esterase (Negative) Urine RBC (0-5) /hpf Urine WBC (0-5) /hpf Urine Bacteria (None) /hpf Urine Mucus (None) /hpf Microbiology - Last 24 Hours (Table) 12/19/18 19:10 Blood Culture Gram Stain - Preliminary Blood Blood Culture - Preliminary Strep agalactiae - (group b) 12/19/18 19:10 Blood Culture - Final Blood 12/19/18 19:30 Urine Culture - Preliminary Urine,Voided Thrombosis Risk Factor Assmnt - Choose All That Apply Each Factor Represents 1 point: History of prior major surgery (<1month), Obesity (BMI >25) Each Risk Factor Represents 3 Points: Age 75 years or older, History of DVT/PE Thrombosis Risk Factor Assessment Total Risk Factor Score: 8 Thrombosis Risk Factor Assessment Level: High Risk Assessment and Plan Plan: -Bacteremia and sepsis: Patient has group B streptococci which is typical lactate patient was initially started on Vanco mycin as patient is ALLERGIC to penicillins I believe patient may have UTI secondary to enterococcus. As nabeel su doesn't have any enterococcus Vanco mycin can disc in your patient will be continued on Rocephin 2 g infectious disease was consulted and repeat blood cultures will be obtained for today and tomorrow the possible source of infection can be UTI which cannot be ruled out as a source of infection at the possibility is low I'll repeat a chest x-ray tomorrow so far there is no evidence of pneumonia. There is no cellulitis. Other possible consideration isn't hepatitis C. If he has persistent bacteremia. -Benign prostatic hypertrophy with recent transurethral resection of prostate -Hyperlipidemia -Hypertension -Hypothyroidism -Second-degree type I AV block no further intervention at this time patient is a symptomatically from this echocardiogram was obtained and I reviewed the results of echocardiogram -Acute toxic encephalopathy from sepsis which improved at this time. DVT prophylaxis with subcutaneous heparin and GI prophylaxis with Pepcid
[2018-12-20] MEDS: HEPARIN SODIUM,PORCINE 5,000 UNIT/ML 1 ML VIAL SQ SCH ×2 (17:25→20:19)
--- NOTE | 2018-12-20 19:48 | P.GSCN ---
History of Present Illness Consult date: 12/20/18 Reason for Consult: UTI Requesting physician: Mary Conroy History of present illness: The patient is a 78-year-old white male with a several year history history of BPH with incomplete bladder emptying. He was initially treated with tamsulosin, and subsequently finasteride was added. He ultimately underwent a TURP on 12/10/2018. He was seen back in the office by Dr. Magallanes on December 15, and was voiding well at that time. However, he was admitted yesterday with fever presumed to be of urinary origin. He denies dysuria and hematuria. Review of Systems - Constitutional Reports chills, Reports fever - Genitourinary Denies dysuria, Denies hematuria Past Medical History Past Medical History: Hyperlipidemia, Hypertension, Prostate Disorder, Thyroid Disorder History of Any Multi-Drug Resistant Organisms: None Reported Additional Past Surgical History / Comment(s): COLONOSCOPY. BILAT CATARACTS Past Anesthesia/Blood Transfusion Reactions: No Reported Reaction Past Psychological History: No Psychological Hx Reported Smoking Status: Former smoker Past Alcohol Use History: None Reported Past Drug Use History: None Reported - Past Family History Mother Family Medical History: No Reported History Medications and Allergies Home Medications Medication Instructions Recorded Confirmed Type Enalapril/Hydrochlorothiazide 1 tab PO DAILY 01/22/17 12/19/18 History [Enalapril-Hctz 10-25 mg Tablet] Levothyroxine Sodium [Synthroid] 75 mcg PO DAILY 01/22/17 12/19/18 History Simvastatin [Zocor] 20 mg PO HS 01/22/17 12/19/18 History Allergies Allergy/AdvReac Type Severity Reaction Status Date / Time Penicillins Allergy Rash/Hives Verified 12/19/18 19:46 Surgical - Exam Vital Signs Temp Pulse Resp BP Pulse Ox 102.8 F H 93 18 140/77 98 12/19/18 19:02 12/19/18 19:02 12/19/18 19:02 12/19/18 19:02 12/19/18 19:02 - General well developed, well nourished, no distress - Abdomen Abdomen: soft, non tender, no guarding, no rigid, no rebound - Genitourinary normal penis with no external lesions, testicles non-tender - Psychiatric oriented to time, oriented to person, oriented to place, speech is normal, memory intact Results - Labs 12/20/18 05:53 12/20/18 05:53 Abnormal Lab Results - Last 24 Hours (Table) 12/19/18 12/19/18 12/19/18 Range/Units 19:10 19:10 19:10 RBC 4.08 L (4.30-5.90) m/uL Hgb 12.0 L (13.0-17.5) gm/dL Hct 35.0 L (39.0-53.0) % Neutrophils # 8.3 H (1.3-7.7) k/uL Lymphocytes # 0.3 L (1.0-4.8) k/uL Chloride (98-107) mmol/L Carbon Dioxide (22-30) mmol/L BUN 32 H (9-20) mg/dL Glucose 139 H (74-99) mg/dL POC Glucose (mg/dL) (75-99) mg/dL Plasma Lactic Acid Eric 3.9 H* (0.7-2.0) mmol/L Total Bilirubin 1.5 H (0.2-1.3) mg/dL Creatine Kinase (55-170) U/L Urine Protein (Negative) Urine Blood (Negative) Ur Leukocyte Esterase (Negative) Urine RBC (0-5) /hpf Urine WBC (0-5) /hpf Urine Bacteria (None) /hpf Urine Mucus (None) /hpf 12/19/18 12/19/18 12/20/18 Range/Units 19:10 19:30 05:53 RBC 3.79 L (4.30-5.90) m/uL Hgb 11.2 L (13.0-17.5) gm/dL Hct 33.6 L (39.0-53.0) % Neutrophils # 9.0 H (1.3-7.7) k/uL Lymphocytes # 0.6 L (1.0-4.8) k/uL Chloride (98-107) mmol/L Carbon Dioxide (22-30) mmol/L BUN (9-20) mg/dL Glucose (74-99) mg/dL POC Glucose (mg/dL) (75-99) mg/dL Plasma Lactic Acid Eric (0.7-2.0) mmol/L Total Bilirubin (0.2-1.3) mg/dL Creatine Kinase 471 H (55-170) U/L Urine Protein 1+ H (Negative) Urine Blood Moderate H (Negative) Ur Leukocyte Esterase Large H (Negative) Urine RBC 81 H (0-5) /hpf Urine WBC 87 H (0-5) /hpf Urine Bacteria Occasional H (None) /hpf Urine Mucus Rare H (None) /hpf 12/20/18 12/20/18 Range/Units 05:53 06:18 RBC (4.30-5.90) m/uL Hgb (13.0-17.5) gm/dL Hct (39.0-53.0) % Neutrophils # (1.3-7.7) k/uL Lymphocytes # (1.0-4.8) k/uL Chloride 108 H (98-107) mmol/L Carbon Dioxide 21 L (22-30) mmol/L BUN 30 H (9-20) mg/dL Glucose 126 H (74-99) mg/dL POC Glucose (mg/dL) 131 H (75-99) mg/dL Plasma Lactic Acid Eric (0.7-2.0) mmol/L Total Bilirubin (0.2-1.3) mg/dL Creatine Kinase (55-170) U/L Urine Protein (Negative) Urine Blood (Negative) Ur Leukocyte Esterase (Negative) Urine RBC (0-5) /hpf Urine WBC (0-5) /hpf Urine Bacteria (None) /hpf Urine Mucus (None) /hpf Microbiology - Last 24 Hours (Table) 12/19/18 19:10 Blood Culture Gram Stain - Preliminary Blood 12/19/18 19:10 Blood Culture - Final Blood 12/19/18 19:30 Urine Culture - Preliminary Urine,Voided Diabetes panel 12/19/18 12/20/18 Range/Units 19:10 05:53 Sodium 139 141 (137-145) mmol/L Potassium 4.2 3.9 (3.5-5.1) mmol/L Chloride 104 108 H (98-107) mmol/L Carbon Dioxide 22 21 L (22-30) mmol/L BUN 32 H 30 H (9-20) mg/dL Creatinine 1.17 0.95 (0.66-1.25) mg/dL Glucose 139 H 126 H (74-99) mg/dL Calcium 9.7 8.8 (8.4-10.2) mg/dL AST 57 (17-59) U/L ALT 57 (21-72) U/L Alkaline Phosphatase 68 (38-126) U/L Total Protein 7.4 (6.3-8.2) g/dL Albumin 4.1 (3.5-5.0) g/dL Calcium panel 12/19/18 12/20/18 Range/Units 19:10 05:53 Calcium 9.7 8.8 (8.4-10.2) mg/dL Albumin 4.1 (3.5-5.0) g/dL Pituitary panel 12/19/18 12/20/18 Range/Units 19:10 05:53 Sodium 139 141 (137-145) mmol/L Potassium 4.2 3.9 (3.5-5.1) mmol/L Chloride 104 108 H (98-107) mmol/L Carbon Dioxide 22 21 L (22-30) mmol/L BUN 32 H 30 H (9-20) mg/dL Creatinine 1.17 0.95 (0.66-1.25) mg/dL Glucose 139 H 126 H (74-99) mg/dL Calcium 9.7 8.8 (8.4-10.2) mg/dL Adrenal panel 12/19/18 12/20/18 Range/Units 19:10 05:53 Sodium 139 141 (137-145) mmol/L Potassium 4.2 3.9 (3.5-5.1) mmol/L Chloride 104 108 H (98-107) mmol/L Carbon Dioxide 22 21 L (22-30) mmol/L BUN 32 H 30 H (9-20) mg/dL Creatinine 1.17 0.95 (0.66-1.25) mg/dL Glucose 139 H 126 H (74-99) mg/dL Calcium 9.7 8.8 (8.4-10.2) mg/dL Total Bilirubin 1.5 H (0.2-1.3) mg/dL AST 57 (17-59) U/L ALT 57 (21-72) U/L Alkaline Phosphatase 68 (38-126) U/L Total Protein 7.4 (6.3-8.2) g/dL Albumin 4.1 (3.5-5.0) g/dL Assessment and Plan (1) Benign prostatic hyperplasia with lower urinary tract symptoms Current Visit: Yes Status: Acute Code(s): N40.1 - BENIGN PROSTATIC HYPERPLASIA WITH LOWER URINARY TRACT SYMP SNOMED Code(s): 644018793 (2) Status post recent transurethral resection of prostate Current Visit: Yes Status: Acute Code(s): Z98.890 - OTHER SPECIFIED POSTPROCEDURAL STATES SNOMED Code(s): 668260599 Plan: The patient's urine culture is negative. Blood cultures have shown group B strep. It does not appear that the fever is of urinary tract origin. I have no further recommendations at this time.
[2018-12-20] MEDS: FAMOTIDINE 20 MG TAB PO SCH (20:19)
[2018-12-20] MEDS: SIMVASTATIN 20 MG PO SCH (20:20)
--- NOTE | 2018-12-20 23:23 | P.CONS ---
History of Present Illness - Reason for Consult Consult date: 12/20/18 bacteremia Requesting physician: Russ Carver - Chief Complaint Fever with rigors and chills 2 days - History of Present Illness Patient is a 78-year-old male with past medical history significant for benign prostatic hypertrophy failing medical therapy the patient is status post TURP performed by urology on 12/09/2018 patient seemed to have some symptoms of rigors and chills since his surgical procedure however the patient becoming acutely ill the night before presentation to the hospital with rigors and chills feeling very weak and hadn't and no energy patient denies having any URI symptoms denies having any chest pain very minimal cough no nausea no vomiting no gout pain no diarrhea denies significant burning or frequency of urine with the symptoms the patient presented to the [facility] ER with the patient has been evaluated by the ER physician on arrival to the ER the patient was febrile with a temperature of 102 Fahrenheit mild tachycardia with heart rate of 93 patient 60 was negative for any pneumonia patient did have a positive UA, patient did have CT of abdominal pelvis did not show any inflammatory changes in the pelvis except some cystitis ,patient has been started on Rocephin 2 g daily the patient blood culture came back positive with group B strep that prompted this infectious disease consultation patient is feeling slightly better since admission to the hospital Review of Systems Positive point has been mentioned in the HPI rest of the systems are negative Past Medical History Past Medical History: Hyperlipidemia, Hypertension, Prostate Disorder, Thyroid Disorder History of Any Multi-Drug Resistant Organisms: None Reported Additional Past Surgical History / Comment(s): COLONOSCOPY. BILAT CATARACTS Past Anesthesia/Blood Transfusion Reactions: No Reported Reaction Past Psychological History: No Psychological Hx Reported Smoking Status: Former smoker Past Alcohol Use History: None Reported Past Drug Use History: None Reported - Past Family History Mother Family Medical History: No Reported History Medications and Allergies Home Medications Medication Instructions Recorded Confirmed Type Enalapril/Hydrochlorothiazide 1 tab PO DAILY 01/22/17 12/19/18 History [Enalapril-Hctz 10-25 mg Tablet] Levothyroxine Sodium [Synthroid] 75 mcg PO DAILY 01/22/17 12/19/18 History Simvastatin [Zocor] 20 mg PO HS 01/22/17 12/19/18 History Allergies Allergy/AdvReac Type Severity Reaction Status Date / Time Penicillins Allergy Rash/Hives Verified 12/19/18 19:46 Physical Exam Vitals: Vital Signs Temp Pulse Pulse Resp BP BP Pulse Ox 12/20/18 08:00 98.4 F 77 105/63 98 12/20/18 03:52 98.4 F 78 21 120/77 94 L 12/19/18 23:41 98.1 F 82 20 96/58 94 L 12/19/18 22:08 98.3 F 89 20 91/45 93 L 12/19/18 22:05 97.4 F L 89 18 102/58 93 L 12/19/18 20:26 93 20 120/56 95 12/19/18 20:06 101.3 F H 12/19/18 19:22 90 18 140/77 98 12/19/18 19:02 102.8 F H 93 18 140/77 98 Intake and Output 12/20/18 12/20/18 12/20/18 06:59 14:59 22:59 Intake Total 75 480 Output Total 400 400 600 Balance -325 80 -600 Intake: Oral 75 480 Output: Urine 400 400 600 Other: Voiding Method Toilet Urinal # Voids 1 Weight 109.4 kg GENERAL DESCRIPTION: An elderly male lying in bed, no distress. No tachypnea or accessory muscle of respiration use. HEENT: Shows Pallor , no scleral icterus. Oral mucous membrane is dry. No pharyn geal erythema or thrush NECK: Trachea central, no thyromegaly. LUNGS: Unlabored breathing. Clear to auscultation anteriorly. No wheeze or crackle. HEART: S1, S2, regular rate and rhythm. No loud murmur ABDOMEN: Soft, no tenderness , guarding or rigidity, no organomegaly EXTREMITIES: No edema of feet. SKIN: No rash, no masses palpable. NEUROLOGICAL: The patient is awake, alert, oriented x3, mood and affect normal. Results CBC & Chem 7: 12/20/18 05:53 12/20/18 05:53 Labs: Abnormal Lab Results - Last 24 Hours (Table) 12/19/18 12/19/18 12/19/18 Range/Units 19:10 19:10 19:10 RBC 4.08 L (4.30-5.90) m/uL Hgb 12.0 L (13.0-17.5) gm/dL Hct 35.0 L (39.0-53.0) % Neutrophils # 8.3 H (1.3-7.7) k/uL Lymphocytes # 0.3 L (1.0-4.8) k/uL Chloride (98-107) mmol/L Carbon Dioxide (22-30) mmol/L BUN 32 H (9-20) mg/dL Glucose 139 H (74-99) mg/dL POC Glucose (mg/dL) (75-99) mg/dL Plasma Lactic Acid Eric 3.9 H* (0.7-2.0) mmol/L Total Bilirubin 1.5 H (0.2-1.3) mg/dL Creatine Kinase (55-170) U/L Urine Protein (Negative) Urine Blood (Negative) Ur Leukocyte Esterase (Negative) Urine RBC (0-5) /hpf Urine WBC (0-5) /hpf Urine Bacteria (None) /hpf Urine Mucus (None) /hpf 12/19/18 12/19/18 12/20/18 Range/Units 19:10 19:30 05:53 RBC 3.79 L (4.30-5.90) m/uL Hgb 11.2 L (13.0-17.5) gm/dL Hct 33.6 L (39.0-53.0) % Neutrophils # 9.0 H (1.3-7.7) k/uL Lymphocytes # 0.6 L (1.0-4.8) k/uL Chloride (98-107) mmol/L Carbon Dioxide (22-30) mmol/L BUN (9-20) mg/dL Glucose (74-99) mg/dL POC Glucose (mg/dL) (75-99) mg/dL Plasma Lactic Acid Eric (0.7-2.0) mmol/L Total Bilirubin (0.2-1.3) mg/dL Creatine Kinase 471 H (55-170) U/L Urine Protein 1+ H (Negative) Urine Blood Moderate H (Negative) Ur Leukocyte Esterase Large H (Negative) Urine RBC 81 H (0-5) /hpf Urine WBC 87 H (0-5) /hpf Urine Bacteria Occasional H (None) /hpf Urine Mucus Rare H (None) /hpf 12/20/18 12/20/18 12/20/18 Range/Units 05:53 06:18 11:50 RBC (4.30-5.90) m/uL Hgb (13.0-17.5) gm/dL Hct (39.0-53.0) % Neutrophils # (1.3-7.7) k/uL Lymphocytes # (1.0-4.8) k/uL Chloride 108 H (98-107) mmol/L Carbon Dioxide 21 L (22-30) mmol/L BUN 30 H (9-20) mg/dL Glucose 126 H (74-99) mg/dL POC Glucose (mg/dL) 131 H 162 H (75-99) mg/dL Plasma Lactic Acid Eric (0.7-2.0) mmol/L Total Bilirubin (0.2-1.3) mg/dL Creatine Kinase (55-170) U/L Urine Protein (Negative) Urine Blood (Negative) Ur Leukocyte Esterase (Negative) Urine RBC (0-5) /hpf Urine WBC (0-5) /hpf Urine Bacteria (None) /hpf Urine Mucus (None) /hpf Microbiology - Last 24 Hours (Table) 12/19/18 19:10 Blood Culture Gram Stain - Preliminary Blood Blood Culture - Preliminary Strep agalactiae - (group b) 12/19/18 19:10 Blood Culture - Final Blood 12/19/18 19:30 Urine Culture - Preliminary Urine,Voided Assessment and Plan Assessment: 1-patient presented to hospital with sepsis in this patient who did have a fever tachycardia with the significant positive UA likely the source of this sepsis now with evidence of secondary bacteremia and the patient currently with no other clinical focus for this bacteremia (1) Sepsis Current Visit: Yes Status: Acute Code(s): A41.9 - SEPSIS, UNSPECIFIED ORGANISM SNOMED Code(s): 25646743 (2) Urinary tract infection Current Visit: Yes Status: Acute Code(s): N39.0 - URINARY TRACT INFECTION, SITE NOT SPECIFIED SNOMED Code(s): 12256866 (3) Bacteremia due to Streptococcus Current Visit: Yes Status: Acute Code(s): R78.81 - BACTEREMIA; B95.5 - UNSP STREPTOCOCCUS THE [facility] Code(s): 353273706791 Plan: 1-blood cultures repeated to document clearance of bacteremia 2-we will review the CT with the radiologist 3-Rocephin 2 g daily We will follow on clinical condition and cultures to further adjust medication if needed Thank you for this consultation will follow this patient with you Time with Patient: Greater than 30
[2018-12-21] MEDS ORDERED: VANCOMYCIN 1,750 MG in SODIUM CHLORIDE 0.9% 500 ML 500 ML IVPB SCH ×2
[2018-12-21 05:55] LABS: HCT 29.6 % (39.0-53.0); HGB 10.1 gm/dL (13.0-17.5); MCH 29.6 pg (25.0-35.0); MCHC 34.3 g/dL (31.0-37.0); MCV 86.5 fL (80.0-100.0); Mean Platelet Volume 7.1; Platelet Count 157 k/uL (150-450); Poikilocytosis Slight; RBC 3.42 m/uL (4.30-5.90); RDW 14.7 % (11.5-15.5); WBC 8.5 k/uL (3.8-10.6)
[2018-12-21 06:08] LABS: African American GFR (CKD) >90 (>60 ml/min/1.73 sqM); Anion Gap 9 mmol/L; Blood Urea Nitrogen 26 mg/dL (9-20); Calcium 8.5 mg/dL (8.4-10.2); Carbon Dioxide 19 mmol/L (22-30); Chloride 109 mmol/L (98-107); Glucose 122 mg/dL (74-99); Non-African American GFR(CKD) 84 (>60 ml/min/1.73 sqM); Potassium 3.4 mmol/L (3.5-5.1); Sodium 137 mmol/L (137-145)
[2018-12-21] MEDS: LEVOTHYROXINE 75 MCG TAB PO SCH (06:12)
[2018-12-21 06:23] LABS: C Reactive Protein 178.5 mg/L (<10.0)
[2018-12-21 06:44] LABS: Erythrocyte Sedimentation Rate 35 mm/hr (0-15)
[2018-12-21] MEDS: FAMOTIDINE 20 MG TAB PO SCH ×2 (08:52→22:16)
[2018-12-21] MEDS: HEPARIN SODIUM,PORCINE 5,000 UNIT/ML 1 ML VIAL SQ SCH (08:52)
[2018-12-21] MEDS ORDERED: HEPARIN SODIUM,PORCINE 5,000 UNIT/ML 1 ML VIAL IV PRN (11:26)
[2018-12-21] MEDS ORDERED: HEPARIN SODIUM,PORCINE 5,000 UNIT/ML 1 ML VIAL IV ONE (11:26)
--- NOTE | 2018-12-21 11:33 | P.PN ---
Subjective Progress Note Date: 12/21/18 This is a 70-year-old gentleman with history of hyperlipidemia, hypertension, hypothyroidism, who recently underwent prostate surgery, presented to the hospital with symptoms of fever, fatigue and extreme tiredness. Patient has been diagnosed with urosepsis, he was having temperatures up to 102.8 during t his admission. This morning he is afebrile. His blood cultures did come back positive for strep B. His initial EKG showed a normal sinus rhythm, first- degree AV block, subsequently he had an accelerated junctional rhythm. This morning patient had an EKG performed which shows atrial fibrillation with controlled ventricular response. Patient has had no pauses noted on the monitor through the night. He did have an echocardiogram with Doppler study performed which revealed a normal left ventricular systolic function with no significant regurgitation noted. Blood pressure 122/60 with a heart rate in the 50s to 60s, 98% on 2 L of oxygen, temperature this morning 98.7. White blood cell count 8.5, hemoglobin 10.1, platelet count 157. Sed rate elevated at 35. Sodium 137, potassium 3.4, BUN 26 and creatinine 0.8. C-reactive protein 178.5. TSH is normal. Repeat chest x-ray was performed this morning and is yet pending. Objective - Vital Signs Vital signs: Vital Signs Temp 98.7 F 12/21/18 08:45 Pulse 48 L 12/21/18 08:45 Resp 16 12/21/18 08:45 BP 122/59 12/21/18 08:45 Pulse Ox 98 12/21/18 08:45 Intake & Output 12/20/18 12/21/18 12/21/18 18:59 06:59 18:59 Intake Total 840 120 Output Total 1000 350 Balance -160 -230 Weight 109 kg Intake: Oral 840 120 Output: Urine 1000 350 Other: Voiding Method Toilet Toilet Urinal Urinal # Voids 3 - Exam PHYSICAL EXAMINATION: GENERAL: 70-year-old gentleman in no acute distress at the time of my examination HEENT: Head is atraumatic, normocephalic. Pupils equal, round. Sclera anicteric. Conjunctiva are clear. Mucous membranes of the mouth are moist. Neck is supple. There is no elevated jugular venous pressure. No carotid bruit is heard. HEART EXAMINATION: Heart S1 and S2 irregularly irregular CHEST EXAMINATION: Lungs are clear to auscultation and precussion. No chest wall tenderness is noted on palpation or with deep breathing. ABDOMEN: Soft, nontender. Bowel sounds are heard. No organomegaly noted. EXTREMITIES: 2+ peripheral pulses with no evidence of peripheral edema and no calf tenderness noted. NEUROLOGIC patient is awake, alert and oriented 3 . . - Labs CBC & Chem 7: 12/21/18 05:43 12/21/18 05:43 Labs: Abnormal Lab Results - Last 24 Hours (Table) 12/20/18 12/21/18 12/21/18 Range/Units 11:50 05:43 05:43 RBC 3.42 L (4.30-5.90) m/uL Hgb 10.1 L (13.0-17.5) gm/dL Hct 29.6 L (39.0-53.0) % ESR 35 H (0-15) mm/hr Potassium 3.4 L (3.5-5.1) mmol/L Chloride 109 H (98-107) mmol/L Carbon Dioxide 19 L (22-30) mmol/L BUN 26 H (9-20) mg/dL Glucose 122 H (74-99) mg/dL POC Glucose (mg/dL) 162 H (75-99) mg/dL C-Reactive Protein 178.5 H (<10.0) mg/L Microbiology - Last 24 Hours (Table) 12/19/18 19:10 Blood Culture Gram Stain - Preliminary Blood Blood Culture - Preliminary Strep agalactiae - (group b) 12/19/18 19:30 Urine Culture - Final Urine,Voided 12/19/18 19:10 Blood Culture - Final Blood Assessment and Plan Plan: Assessment and plan #1 symptoms of weakness, fever, evidence of sepsis, likely urosepsis. Blood culture positive for strep B. #2 atrial fibrillation with slow ventricular response, new onset for the patient, paroxysmal #3 hyperlipidemia #4 hypertension #5 hypothyroidism #6 recent prostate surgery Plan We will discontinue the subcu heparin and start the patient on a heparin drip. He will require long-term anticoagulation for stroke prevention. We will discontinue the ibuprofen. Patient is currently on antibiotics. His heart rate this morning is in the 50s to 60s, not on any rate lowering medications. DNP note has been reviewed, I agree with a documented findings and plan of care. Patient was seen and examined.
--- NOTE | 2018-12-21 11:46 | XR ---
EXAMINATION TYPE: XR chest 1V portable DATE OF EXAM: 12/21/2018 COMPARISON: 12/19/2018 HISTORY: Abnormal clinical exam, lung crackles TECHNIQUE: Single frontal view of the chest is obtained. FINDINGS: Heart is prominent is atherosclerotic change aorta. Arthropathy of the shoulders. There is a coarsened interstitium. Basilar subsegmental consolidation noted. Hypertrophic and degenerative ch vlad of the spine. Interstitial prominence could secondary to interstitial congestion or pneumonitis. Chronic interstitial lung disease in the differential diagnosis. IMPRESSION: 1. Basilar atelectasis versus early infiltrate. Persistent interstitial prominence may been the basis of interstitial pneumonitis less likely venous congestion. Chronic lung interstitial disease also in the differential diagnosis. 2. Cardiomegaly.
[2018-12-21 12:14] LABS: Partial Thromboplastin Time 27.8 sec (22.0-30.0); Prothrombin Time 10.5 sec (9.0-12.0)
[2018-12-21 12:38] LABS: Basophils % (A) 0 %; Eosinophils # (A) 0.1 k/uL (0-0.7); Eosinophils % (A) 1 %; HGB 10.7 gm/dL (13.0-17.5); Lymphocytes # (A) 0.8 k/uL (1.0-4.8); Lymphocytes % (A) 9 %; MCH 29.2 pg (25.0-35.0); MCHC 33.4 g/dL (31.0-37.0); MCV 87.4 fL (80.0-100.0); Mean Platelet Volume 7.2; Monocytes # (A) 0.4 k/uL (0-1.0); Monocytes % (A) 4 %; Neutrophils # (A) 7.2 k/uL (1.3-7.7); Neutrophils % (A) 82 %; Platelet Count 171 k/uL (150-450); Poikilocytosis Slight; RBC 3.66 m/uL (4.30-5.90); RDW 14.8 % (11.5-15.5); WBC 8.8 k/uL (3.8-10.6)
[2018-12-21] MEDS: HEPARIN SOD,PORK IN 0.45% NACL 25,000 UNIT in 0.45% NACL 1 250ML.BAG IV SCH (12:51)
--- NOTE | 2018-12-21 14:19 | PN ---
PROGRESS NOTE DATE OF SERVICE: 12/21/2018 REASON FOR FOLLOWUP: Strep bacteremia. INTERVAL HISTORY: The patient is currently afebrile. The patient is breathing comfortably. Denies having any further rigors or chills. No chest pain, no shortness of breath. Occasional cough. No nausea, no vomiting. No abdominal pain and currently with no urinary symptoms. PHYSICAL EXAMINATION: Blood pressure 122/59 with a pulse of 40, temperature 98.7, he is 98% on 2 L nasal cannula. General description is an elderly male, lying in bed in no distress. RESPIRATORY SYSTEM: Unlabored breathing clear to auscultation anteriorly. HEART S1, S2. Regular rate and rhythm. ABDOMEN: Soft, no tenderness. EXTREMITIES: No edema of the feet. LABS: Hemoglobin is 10.7, white count 8.8. BUN of 26, creatinine 0.84. DIAGNOSTIC IMPRESSION AND PLAN: Patient admitted to the hospital with sepsis, evidence of Streptococcus agalactiae bacteremia. This patient did have recent urological procedure. The patient's CT was reviewed with radiologist, but no evidence of any abscess in the prostatic bed. Keep the patient on Rocephin. If the followup blood culture remains negative and clinically no evidence of deep infection, may finish therapy with oral antibiotics. Continue supportive care. MMODL / IJN: [id number] / MTDD
--- NOTE | 2018-12-21 15:44 | P.PN ---
Subjective -year-old male was admitted for sepsis bacteremia is stable. Patient has a Pablo catheter for benign prostatic hypertrophy, patient the is believed to have urinary tract infection. Patient is also being treated for atrial fibrillation but rate controlled patient is being started on IV heparin will be started on oral anticoagulation. Patient is feeling much better today Constitutional: Denied any fatigue denied any fever. Cardio vascular: denied any chest pain, palpitations Gastrointestinal denied any nausea vomiting Pulmonary: Denied any shortness of breath cough Neurologic denied any new focal deficits All inpatient medications were reviewed and appropriate changes in these medications as dictated in the interval history and assessment and plan. Objective - Vital Signs Vital signs: Vital Signs Temp 98.7 F 12/21/18 08:45 Pulse 55 L 12/21/18 12:05 Resp 16 12/21/18 12:05 BP 141/63 12/21/18 12:05 Pulse Ox 98 12/21/18 12:05 Intake & Output 12/20/18 12/21/18 12/21/18 18:59 06:59 18:59 Intake Total 840 120 530 Output Total 1000 350 200 Balance -160 -230 330 Weight 109 kg Intake: Intake, IV Titration 50 Amount cefTRIAXone 2 gm In 50 Sodium Chloride 0.9% 50 ml @ 100 mls/hr IVPB Q24HR [facility] Rx#:[id number] Oral 840 120 480 Output: Urine 1000 350 200 Other: Voiding Method Toilet Toilet Urinal Urinal # Voids 3 2 - Exam PHYSICAL EXAMINATION: GENERAL: The patient is alert and oriented x3, not in any acute distress. Well developed, well nourished. HEENT: Pupils are round and equally reacting to light. EOMI. No scleral icterus. No conjunctival pallor. Normocephalic, atraumatic. No pharyngeal erythema. No thyromegaly. CARDIOVASCULAR: S1 and S2 present. No murmurs, rubs, or gallops. PULMONARY: Chest is clear to auscultation, no wheezing or crackles. ABDOMEN: Soft, nontender, nondistended, normoactive bowel sounds. No palpable organomegaly. MUSCULOSKELETAL: No joint swelling or deformity. EXTREMITIES: No cyanosis, clubbing, or pedal edema. NEUROLOGICAL: Gross neurological examination did not reveal any focal deficits. SKIN: No rashes. - Labs CBC & Chem 7: 12/21/18 11:33 12/21/18 05:43 Labs: Abnormal Lab Results - Last 24 Hours (Table) 12/21/18 12/21/18 12/21/18 Range/Units 05:43 05:43 11:33 RBC 3.42 L 3.66 L (4.30-5.90) m/uL Hgb 10.1 L 10.7 L (13.0-17.5) gm/dL Hct 29.6 L 32.0 L (39.0-53.0) % Lymphocytes # 0.8 L (1.0-4.8) k/uL ESR 35 H (0-15) mm/hr Potassium 3.4 L (3.5-5.1) mmol/L Chloride 109 H (98-107) mmol/L Carbon Dioxide 19 L (22-30) mmol/L BUN 26 H (9-20) mg/dL Glucose 122 H (74-99) mg/dL C-Reactive Protein 178.5 H (<10.0) mg/L Microbiology - Last 24 Hours (Table) 12/20/18 11:42 Blood Culture - Preliminary Blood No Growth after 24 hours 12/19/18 19:10 Blood Culture Gram Stain - Preliminary Blood Blood Culture - Preliminary Strep agalactiae - (group b) 12/19/18 19:30 Urine Culture - Final Urine,Voided Assessment and Plan Plan: -Bacteremia and sepsis: Patient has group B streptococci possible source being urinary tract infection repeat cultures are negative patient is on Rocephin 2 g -Possible atrial fibrillation/flutter rate controlled was started on anticoagulation -Benign prostatic hypertrophy with recent transurethral resection of prostate -Hyperlipidemia -Hypertension -Hypothyroidism -Second-degree type I AV block no further intervention at this time -Acute toxic encephalopathy from sepsis which improved at this time. DVT prophylaxis with subcutaneous heparin and GI prophylaxis with Pepcid
[2018-12-21] MEDS: SIMVASTATIN 20 MG PO SCH (22:18)
[2018-12-22 04:06] LABS: Basophils % (A) 0 %; Eosinophils # (A) 0.1 k/uL (0-0.7); Eosinophils % (A) 1 %; HCT 30.1 % (39.0-53.0); HGB 10.1 gm/dL (13.0-17.5); Lymphocytes # (A) 0.9 k/uL (1.0-4.8); Lymphocytes % (A) 13 %; MCH 29.1 pg (25.0-35.0); MCHC 33.7 g/dL (31.0-37.0); MCV 86.5 fL (80.0-100.0); Mean Platelet Volume 8.7; Monocytes # (A) 0.3 k/uL (0-1.0); Monocytes % (A) 4 %; Neutrophils # (A) 5.4 k/uL (1.3-7.7); Neutrophils % (A) 77 %; Platelet Count 175 k/uL (150-450); Poikilocytosis Slight; RBC 3.48 m/uL (4.30-5.90); RDW 14.8 % (11.5-15.5)
[2018-12-22 04:58] LABS: African American GFR (CKD) >90 (>60 ml/min/1.73 sqM); Anion Gap 7 mmol/L; Blood Urea Nitrogen 26 mg/dL (9-20); Calcium 8.7 mg/dL (8.4-10.2); Carbon Dioxide 22 mmol/L (22-30); Chloride 109 mmol/L (98-107); Glucose 117 mg/dL (74-99); Non-African American GFR(CKD) 79 (>60 ml/min/1.73 sqM); Potassium 3.5 mmol/L (3.5-5.1); Sodium 138 mmol/L (137-145)
[2018-12-22] MEDS: LEVOTHYROXINE 75 MCG TAB PO SCH (05:52)
[2018-12-22] MEDS: FAMOTIDINE 20 MG TAB PO SCH ×2 (07:55→21:53)
[2018-12-22] MEDS: HEPARIN SOD,PORK IN 0.45% NACL 25,000 UNIT in 0.45% NACL 1 250ML.BAG IV SCH (07:56)
[2018-12-22] MEDS ORDERED: POTASSIUM CHLORIDE ER 20 MEQ TAB.ER PO STA (10:58)
--- NOTE | 2018-12-22 10:59 | P.PN ---
Subjective Progress Note Date: 12/22/18 This is a 70-year-old gentleman with history of hyperlipidemia, hypertension, hypothyroidism, who recently underwent prostate surgery, presented to the hospital with symptoms of fever, fatigue and extreme tiredness. Patient has been diagnosed with urosepsis, he was having temperatures up to 102.8 during t his admission. This morning he is afebrile. His blood cultures did come back positive for strep B. His initial EKG showed a normal sinus rhythm, first- degree AV block, subsequently he had an accelerated junctional rhythm. This morning patient had an EKG performed which shows atrial fibrillation with controlled ventricular response. Patient has had no pauses noted on the monitor through the night. He did have an echocardiogram with Doppler study performed which revealed a normal left ventricular systolic function with no significant regurgitation noted. Blood pressure 122/60 with a heart rate in the 50s to 60s, 98% on 2 L of oxygen, temperature this morning 98.7. White blood cell count 8.5, hemoglobin 10.1, platelet count 157. Sed rate elevated at 35. Sodium 137, potassium 3.4, BUN 26 and creatinine 0.8. C-reactive protein 178.5. TSH is normal. Repeat chest x-ray was performed this morning and is yet pending. 01/22/2019 Patient seen and examined this morning, very sleepy and tired today. He had ambulated up to the bathroom today, had a shower. Continues to be in atrial fibrillation this morning, while sleeping a heart rate goes down to the 40 range, while awake the heart rate is in the 50 range. I did have a lengthy discussion this morning with the daughter regarding anticoagulation, we are currently looking into Eliquis coverage for the patient. Blood pressure 125/60 with a heart rate in the 50s at present, 96% on room air. White blood cell count 7.0, hemoglobin 10.1, platelet count 175. Sodium 138, potassium 3.5, BUN 26 and creatinine 0.9. Objective - Vital Signs Vital signs: Vital Signs Temp 98.2 F 12/22/18 07:52 Pulse 51 L 12/22/18 07:52 Resp 18 12/22/18 07:52 BP 125/65 12/22/18 07:52 Pulse Ox 96 12/22/18 07:52 Intake & Output 12/21/18 12/22/18 12/22/18 18:59 06:59 18:59 Intake Total 530 351.213 400.216 Output Total 200 Balance 330 351.213 400.216 Weight 107 kg Intake: Intake, IV Titration 50 231.213 40.216 Amount Heparin Sod,Pork in 0.45% 181.213 40.216 NaCl 25,000 unit In 0.45 % NaCl 1 250ml.bag @ 9. 174 UNITS/KG/HR 10 mls/hr IV .Q24H HUGO Rx#: [id number] cefTRIAXone 2 gm In 50 50 Sodium Chloride 0.9% 50 ml @ 100 mls/hr IVPB Q24HR HUGO Rx#:[id number] Oral 480 120 360 Output: Urine 200 Other: Voiding Method Toilet Toilet Urinal Urinal # Voids 2 2 - Exam PHYSICAL EXAMINATION: GENERAL: 70-year-old gentleman in no acute distress at the time of my examination HEENT: Head is atraumatic, normocephalic. Pupils equal, round. Sclera anicteric. Conjunctiva are clear. Mucous membranes of the mouth are moist. Neck is supple. There is no elevated jugular venous pressure. No carotid bruit is heard. HEART EXAMINATION: Heart S1 and S2 normal CHEST EXAMINATION: Lungs are clear to auscultation and precussion. No chest wall tenderness is noted on palpation or with deep breathing. ABDOMEN: Soft, nontender. Bowel sounds are heard. No organomegaly noted. EXTREMITIES: 2+ peripheral pulses with no evidence of peripheral edema and no calf tenderness noted. NEUROLOGIC patient is awake, alert and oriented 3 . . - Labs CBC & Chem 7: 12/22/18 03:54 12/22/18 03:54 Labs: Abnormal Lab Results - Last 24 Hours (Table) 12/21/18 12/21/18 12/22/18 Range/Units 11:33 18:41 03:54 RBC 3.66 L 3.48 L (4.30-5.90) m/uL Hgb 10.7 L 10.1 L (13.0-17.5) gm/dL Hct 32.0 L 30.1 L (39.0-53.0) % Lymphocytes # 0.8 L 0.9 L (1.0-4.8) k/uL APTT 40.4 H (22.0-30.0) sec Chloride (98-107) mmol/L BUN (9-20) mg/dL Glucose (74-99) mg/dL 12/22/18 12/22/18 Range/Units 03:54 03:54 RBC (4.30-5.90) m/uL Hgb (13.0-17.5) gm/dL Hct (39.0-53.0) % Lymphocytes # (1.0-4.8) k/uL APTT 33.7 H (22.0-30.0) sec Chloride 109 H (98-107) mmol/L BUN 26 H (9-20) mg/dL Glucose 117 H (74-99) mg/dL Microbiology - Last 24 Hours (Table) 12/19/18 19:10 Blood Culture Gram Stain - Final Blood Blood Culture - Final Strep agalactiae - (group b) 12/21/18 05:43 Blood Culture - Preliminary Blood No Growth after 24 hours 12/20/18 11:42 Blood Culture - Preliminary Blood No Growth after 24 hours Assessment and Plan Plan: Assessment and plan #1 symptoms of weakness, fever, evidence of sepsis, likely urosepsis. Blood culture positive for strep B. #2 atrial fibrillation with slow ventricular response, new onset for the patient, paroxysmal #3 hyperlipidemia #4 hypertension #5 hypothyroidism #6 recent prostate surgery Plan We will discontinue the IV heparin and initiate Eliquis. Continue the rest of his current medications. Replace potassium. DNP note has been reviewed, I agree with a documented findings and plan of care. Patient was seen and examined.
[2018-12-22] MEDS: APIXABAN 5 MG TAB PO SCH ×2 (11:50→21:53)
--- NOTE | 2018-12-22 12:01 | P.PN ---
Subjective -year-old male was admitted for sepsis bacteremia is stable. Patient has a Pablo catheter for benign prostatic hypertrophy, patient the is believed to have urinary tract infection. Patient is also being treated for atrial fibrillation but rate controlled patient is being started on IV heparin will be started on oral anticoagulation. Patient is feeling much better today 12/22/2018 Patient repeat blood cultures are negative patient has streptococci in the blood patient probably can be discharged tomorrow to subacute rehabilitation patient was evaluated by PT and OT will need placement to subacute rehab patient heart rate is controlled and patient was started on Eliquis discussed with the family today.patient is sleeping excessively and this is a concern for the family although patient was not having enough sleep at nighttime Constitutional: Denied any fatigue denied any fever. Cardio vascular: denied any chest pain, palpitations Gastrointestinal denied any nausea vomiting Pulmonary: Denied any shortness of breath cough Neurologic denied any new focal deficits All inpatient medications were reviewed and appropriate changes in these medications as dictated in the interval history and assessment and plan. Objective - Vital Signs Vital signs: Vital Signs Temp 97.9 F 12/22/18 11:49 Pulse 49 L 12/22/18 11:49 Resp 18 12/22/18 11:49 BP 138/56 12/22/18 11:49 Pulse Ox 96 12/22/18 11:49 Intake & Output 12/21/18 12/22/18 12/22/18 18:59 06:59 18:59 Intake Total 530 351.213 400.216 Output Total 200 Balance 330 351.213 400.216 Weight 107 kg Intake: Intake, IV Titration 50 231.213 40.216 Amount Heparin Sod,Pork in 0.45% 181.213 40.216 NaCl 25,000 unit In 0.45 % NaCl 1 250ml.bag @ 9. 174 UNITS/KG/HR 10 mls/hr IV .Q24H HUGO Rx#: [id number] cefTRIAXone 2 gm In 50 50 Sodium Chloride 0.9% 50 ml @ 100 mls/hr IVPB Q24HR HUGO Rx#:[id number] Oral 480 120 360 Output: Urine 200 Other: Voiding Method Toilet Toilet Urinal Urinal # Voids 2 2 - Exam PHYSICAL EXAMINATION: GENERAL: The patient is alert and oriented x3, not in any acute distress. Well developed, well nourished. HEENT: Pupils are round and equally reacting to light. EOMI. No scleral icterus. No conjunctival pallor. Normocephalic, atraumatic. No pharyngeal erythema. No thyromegaly. CARDIOVASCULAR: S1 and S2 present. No murmurs, rubs, or gallops. PULMONARY: Chest is clear to auscultation, no wheezing or crackles. ABDOMEN: Soft, nontender, nondistended, normoactive bowel sounds. No palpable organomegaly. MUSCULOSKELETAL: No joint swelling or deformity. EXTREMITIES: No cyanosis, clubbing, or pedal edema. NEUROLOGICAL: Gross neurological examination did not reveal any focal deficits. SKIN: No rashes. - Labs CBC & Chem 7: 12/22/18 03:54 12/22/18 03:54 Labs: Abnormal Lab Results - Last 24 Hours (Table) 12/21/18 12/21/18 12/22/18 Range/Units 11:33 18:41 03:54 RBC 3.66 L 3.48 L (4.30-5.90) m/uL Hgb 10.7 L 10.1 L (13.0-17.5) gm/dL Hct 32.0 L 30.1 L (39.0-53.0) % Lymphocytes # 0.8 L 0.9 L (1.0-4.8) k/uL APTT 40.4 H (22.0-30.0) sec Chloride (98-107) mmol/L BUN (9-20) mg/dL Glucose (74-99) mg/dL 12/22/18 12/22/18 Range/Units 03:54 03:54 RBC (4.30-5.90) m/uL Hgb (13.0-17.5) gm/dL Hct (39.0-53.0) % Lymphocytes # (1.0-4.8) k/uL APTT 33.7 H (22.0-30.0) sec Chloride 109 H (98-107) mmol/L BUN 26 H (9-20) mg/dL Glucose 117 H (74-99) mg/dL Microbiology - Last 24 Hours (Table) 12/19/18 19:10 Blood Culture Gram Stain - Final Blood Blood Culture - Final Strep agalactiae - (group b) 12/21/18 05:43 Blood Culture - Preliminary Blood No Growth after 24 hours 12/20/18 11:42 Blood Culture - Preliminary Blood No Growth after 24 hours Assessment and Plan Plan: -Bacteremia and sepsis: Patient has group B streptococci possible source being urinary tract infection repeat cultures are negative patient is on Rocephin 2 g- possibly of discharge to subacute rehabilitation tomorrow -Possible atrial fibrillation/flutter rate controlled was started on anticoagulation -Benign prostatic hypertrophy with recent transurethral resection of prostate -Hyperlipidemia -Hypertension -Hypothyroidism -Second-degree type I AV block no further intervention at this time -Acute toxic encephalopathy from sepsis which improved at this time. DVT prophylaxis with subcutaneous heparin and GI prophylaxis with Pepcid
--- NOTE | 2018-12-22 12:55 | P.PN ---
Progress Note - Text Progress Note Date: 12/22/18 The patient is afebrile. He says that overall he feels better although his daughter says that he is sleeping more frequently during the day. He has minimal dysuria and denies urinary frequency or gross hematuria. I reviewed the patient's urine culture which was obtained at the time of admission with the microbiologist in the lab. His culture grew greater than 100,000 colonies and was not further identified as more than 3 different organisms were present and it was presumed to be a contaminated specimen. The presence of hematuria and pyuria on his admission urinalysis does not confirm a urinary tract infection as virtually all individuals to undergo TURP have this finding for weeks following the surgery. It is still possible that the patient's group B strep bacteremia was related to a urinary tract infection but unfortunately none of his urinary laboratory studies are conclusive. He has improved with antibiotic treatment clinically. He will be seen by me later in December for a follow-up appointment.
--- NOTE | 2018-12-22 13:39 | P.NPCON ---
History of Present Illness - Chief Complaint Medical debility - History of Present Illness I had the opportunity to see patient for inpatient rehab consultation with regard to medical debility. He is admitted to [facility] December 19 weakness, confusion 2 days duration and recent TURP. Seen by Dr. German for BPH, UTI, group B strep. Seen by Dr. Raphael for the yet UTI. Symmetric Dr. Wheeler who notes second-degree heart block. Head CT with cerebral atrophy. CT of abdomen and pelvis demonstrates pulmonary atelectasis, thickening of bladder wall consistent with cystitis, spondylitic change with stenosis at L5. Chest x-ray with atelectasis and cardiomegaly. Seen by therapies. PT reports supervision for bed mobility minimal assistance for gait 100 feet with roller walker. OT reports supervision for upper dressing and toileting and minimal assistance for lower dressing and transfers. Previous functional history as elicited from patient: 78-year-old right-handed white male who is lives in one floor home with . Patient works full-time. does the cooking and laundry. Patient independent with driving, standing shower and gait without device. Tri Wang is regular doctor. Denies tobacco but admits to alcohol. Review of Systems Review of systems: Patient sleepy this afternoon. ENT: Denies sneezes or discharge. Eyes: Denies discharge or photophobia. Cardiac: Denies chest pain or palpitation. Pulmonary: Denies cough or shortness of breath. Gastrointestinal: Denies nausea, emesis, constipation, diarrhea. Genitourinary: Denies discharge or frequency. Musculoskeletal: Denies muscle or bone aches. Neurologic: Sleepy mentation. Denies motor or sensory change. Endocrine: Denies shakes or sweats. Oncology: Denies cancers. Dermatologic: Denies rash, itching, pruritus. ALLERGY/immunology: Denies sneezes, rashes. Past Medical History Past Medical History: Hyperlipidemia, Hypertension, Prostate Disorder, Thyroid Disorder History of Any Multi-Drug Resistant Organisms: None Reported Additional Past Surgical History / Comment(s): COLONOSCOPY. BILAT CATARACTS Past Anesthesia/Blood Transfusion Reactions: No Reported Reaction Past Psychological History: No Psychological Hx Reported Smoking Status: Former smoker Past Alcohol Use History: None Reported Past Drug Use History: None Reported - Past Family History Mother Family Medical History: No Reported History Medications and Allergies Home Medications Medication Instructions Recorded Confirmed Type Enalapril/Hydrochlorothiazide 1 tab PO DAILY 01/22/17 12/19/18 History [Enalapril-Hctz 10-25 mg Tablet] Levothyroxine Sodium [Synthroid] 75 mcg PO DAILY 01/22/17 12/19/18 History Simvastatin [Zocor] 20 mg PO HS 01/22/17 12/19/18 History Allergies Allergy/AdvReac Type Severity Reaction Status Date / Time Penicillins Allergy Rash/Hives Verified 12/19/18 19:46 Physical Exam Vitals: Vital Signs Temp Pulse Pulse Resp BP Pulse Ox 12/22/18 12:00 49 L 49 L 18 12/22/18 11:49 97.9 F 49 L 18 138/56 96 12/22/18 08:00 51 L 49 L 18 12/22/18 07:52 98.2 F 51 L 18 125/65 96 12/22/18 04:00 50 L 49 L 20 144/80 97 12/22/18 00:00 98.8 F 50 L 50 L 20 150/76 98 12/21/18 20:00 98.1 F 50 L 16 138/67 94 L 12/21/18 15:35 98.8 F 48 L 16 130/63 96 Intake and Output 12/21/18 12/22/18 12/22/18 22:59 06:59 14:59 Intake Total 85.833 265.38 400.216 Balance 85.833 265.38 400.216 Intake: Intake, IV Titration 85.833 145.38 40.216 Amount Heparin Sod,Pork in 0.45% 85.833 95.38 40.216 NaCl 25,000 unit In 0.45 % NaCl 1 250ml.bag @ 9. 174 UNITS/KG/HR 10 mls/hr IV .Q24H HUGO Rx#: [id number] cefTRIAXone 2 gm In 50 Sodium Chloride 0.9% 50 ml @ 100 mls/hr IVPB Q24HR HUGO Rx#:[id number] Oral 120 360 Other: Voiding Method Toilet Toilet Urinal Urinal # Voids 2 Weight 107 kg Skin: Good color, texture, turgor. General: Overweight build and comfortable appearance. Head: Normocephalic, atraumatic. Eyes: Symmetric. Pupils equal round. Ears: Symmetric. Hearing within normal limits. Mouth: Clear. Neck: Supple. Carotid without bruit. Cardiac: Regular rate and rhythm. Lungs: Clear anteriorly and posteriorly. Abdomen: Soft active nontender. Extremities: Normal tone. Neurological: Mental status: Alert, cooperative, pleasant. Cranial nerves: Symmetric facial tone and trapezius. Motor: Active movement all 4 limbs but at best antigravity. Sensation: Intact throughout. DTRs: Symmetric and equal throughout. Mobility: Requires physical assistance for bed mobility. Results - Lab Results Most recent lab results Calcium 8.7 mg/dL (8.4-10.2) 12/22/18 03:54 12/22/18 03:54 12/22/18 03:54 Assessment and Plan (1) Sepsis Current Visit: Yes Status: Acute Code(s): A41.9 - SEPSIS, UNSPECIFIED ORG ANISM SNOMED Code(s): 69355702 Plan: Impression: 1. Medical debility. 2. UTI with group B strep and related sepsis. 3. Recent TURP. 4. Overweight. 5. Hypertension. Comments and plan: At this time PT and OT are ongoing. Safety concerns noted. We will follow therapies with yourself but currently with safety concerns and seems would benefit from at least a short inpatient rehab stay.
--- NOTE | 2018-12-22 17:09 | PN ---
PROGRESS NOTE DATE OF SERVICE: 12/22/2018 REASON FOR FOLLOWUP: Group B strep bacteremia. INTERVAL HISTORY: The patient is currently afebrile. The patient has been breathing comfortably. The patient denies having any chest pain or shortness of breath or cough. No nausea, no vomiting. No abdominal pain. No diarrhea. Denies any urinary symptoms. PHYSICAL EXAMINATION: Blood pressure 138/66, pulse 49, temperature 97.6. He is 96% on room air. General description is an elderly male lying in bed in no distress. RESPIRATORY SYSTEM: Unlabored breathing. Clear to auscultation anteriorly. HEART: S1, S2. Regular rate and rhythm. ABDOMEN: Soft. No tenderness. EXTREMITIES: No edema of the feet. LABS: Hemoglobin is 10.1, white count 7.0, BUN of 26, creatinine 0.93. Blood culture repeat has been negative. DIAGNOSTIC IMPRESSION AND PLAN: Patient admitted to hospital with sepsis with evidence of Streptococcus agalactiae bacteremia in this patient who did have a recent transurethral resection of prostate. Patient's follow-up blood cultures have been negative. There was no evidence of any abscess on the CT. Plan is to continue with Rocephin while inpatient and switch him to oral antibiotic on discharge. Continue with supportive care. MMODL / IJN: [id number] /
[2018-12-22] MEDS ORDERED: ACETAMINOPHEN TAB 325 MG TAB PO PRN (17:24)
[2018-12-22] MEDS: SIMVASTATIN 20 MG PO SCH (22:04)
[2018-12-23] MEDS: LEVOTHYROXINE 75 MCG TAB PO SCH (05:15)
[2018-12-23 08:04] LABS: Basophils % (A) 0 %; Eosinophils # (A) 0.2 k/uL (0-0.7); Eosinophils % (A) 2 %; HCT 30.9 % (39.0-53.0); HGB 10.6 gm/dL (13.0-17.5); Hypochromasia Slight; Lymphocytes # (A) 0.7 k/uL (1.0-4.8); Lymphocytes % (A) 10 %; MCH 30.3 pg (25.0-35.0); MCHC 34.2 g/dL (31.0-37.0); MCV 88.5 fL (80.0-100.0); Mean Platelet Volume 6.8; Monocytes # (A) 0.3 k/uL (0-1.0); Monocytes % (A) 5 %; Neutrophils # (A) 5.6 k/uL (1.3-7.7); Neutrophils % (A) 80 %; Platelet Count 224 k/uL (150-450); Poikilocytosis Slight; RBC 3.49 m/uL (4.30-5.90); RDW 14.8 % (11.5-15.5)
[2018-12-23] MEDS: FAMOTIDINE 20 MG TAB PO SCH (09:33)
[2018-12-23] MEDS: APIXABAN 5 MG TAB PO SCH (09:33)
[2018-12-23 12:48] VITALS: BP 152/65; PULSE 47; RESP 15; TEMP 98.5
--- NOTE | 2018-12-23 13:30 | P.DS ---
Providers Date of admission: 12/19/18 21:45 Expected date of discharge: 12/23/18 Attending physician: Isrrael Galeano Consults: 12/19/18 21:43 Consult Physician Urgent Consulting Provider: Nilay German Consult Reason/Comments: acute uti, recent TURP Do you want consulting provider notified?: Already Contacted 12/20/18 06:36 Consult Physician Routine Consulting Provider: Josué Grant Consult Reason/Comments: Abnormal heart rhythm Do you want consulting provider notified?: Yes, Notify in am 12/20/18 15:31 Consult Physician Routine Consulting Provider: Nubia Tripathi Consult Reason/Comments: bacteremia Do you want consulting provider notified?: Yes 12/22/18 11:57 Consult Physician Routine Consulting Provider: Madhav Darby Consult Reason/Comments: eval for inpatient rehab Do you want consulting provider notified?: Yes Primary care physician: Tri Wang Hospital Course: Hospital course: Patient is status post TURP tenderness ago per Dr. Magallanes. Admitted with confusion. Was doing well after the procedure and was discharged. Presented with increasing confusion, sleepy, decreased appetite. He assistance to get around the house. Had a fever up to 103. Lower back pain. He also has chronic low back pain. Blood culture was positive for Streptococcus agalactiae group B. Repeat blood cultures were negative. Was put on IV ceftriaxone. This is being switched over to Ceftin. Also found to have new onset atrial fibrillation. Put on IV heparin and switched over to eliquis. Today-take much better. Tolerating a diet. A bit weak. Using a walker. Spoke to the patient and and daughter. Has been accepted at inpatient rehab. Discussion and discharge planning more than 35 minutes Consults: Dr. Magallanes from urology Dr. Tripathi from ID Dr. Israel Wheeler from cardiology Dr. Madhav King from rehab Vital signs-98.5, 47, 15, 152/65, 94% room air Sitting up in a chair, comfortable awake Lungs-decreased breath sounds Psych-answering questions appropriately Investigations: White count 7 hemoglobin 10.6 platelets 2 through 4 potassium 3.5 creatinine 0.93 Blood culture positive from 12/19/2018 with Streptococcus agalactiae group B 2-D echo-EF 60-65%, moderate concentric left medical hypertrophy, moderate mitral stenosis Assessment: -Acute bacteremia and sepsis from group B streptococci secondary to UTI. -Atrial flutter fibrillation persisted started on anticoagulation -Recent TURP for BPH -Essential hypertension -Hyperlipidemia -Hypothyroidism -Second degree A-V block pot for any intervention -Acute toxic encephalopathy from sepsis, POA improved -Obesity BMI 33.8 Disposition: Inpatient rehab at [facility] under Dr. Dora King Patient Condition at Discharge: Stable Plan - Discharge Summary Discharge Rx Participant: No New Discharge Prescriptions: New Apixaban [Eliquis] 5 mg PO BID #60 tab Famotidine [Pepcid] 20 mg PO BID tab Cefuroxime Axetil [Ceftin] 500 mg PO BID #22 tab Continue Levothyroxine Sodium [Synthroid] 75 mcg PO DAILY Simvastatin [Zocor] 20 mg PO HS Enalapril/Hydrochlorothiazide [Enalapril-Hctz 10-25 mg Tablet] 1 tab PO DAILY Discharge Medication List Enalapril/Hydrochlorothiazide [Enalapril-Hctz 10-25 mg Tablet] 1 tab PO DAILY 01/22/17 [History] Levothyroxine Sodium [Synthroid] 75 mcg PO DAILY 01/22/17 [History] Simvastatin [Zocor] 20 mg PO HS 01/22/17 [History] Apixaban [Eliquis] 5 mg PO BID #60 tab 12/23/18 [Rx] Cefuroxime Axetil [Ceftin] 500 mg PO BID #22 tab 12/23/18 [Rx] Famotidine [Pepcid] 20 mg PO BID tab 12/23/18 [Rx] Follow up Appointment(s)/Referral(s): urologistdr [Other] - 1 Week [facility], [NON-STAFF] - 1 Week Tri Wang DO [Primary Care Provider] - 1-2 days Nubia Tripathi MD [STAFF PHYSICIAN] - 1 Week Activity/Diet/Wound Care/Special Instructions: pt will be sent home with a walker s/t weakness and needed for safety. abx per dr tripathi
--- NOTE | 2018-12-23 15:19 | PN ---
PROGRESS NOTE DATE OF SERVICE: 12/23/2018. REASON FOR FOLLOWUP: Group B strep bacteremia likely urinary source. INTERVAL HISTORY: The patient is currently afebrile. The patient is breathing comfortably. Denies having any chest pain, shortness of breath or cough. No nausea, vomiting. No abdominal pain. No diarrhea. PHYSICAL EXAMINATION: Blood pressure is 152/65 with a pulse of 47, temperature 98.5. He is 95% on room air. General description is an elderly male up in the chair in no distress. Respiratory system: Unlabored breathing. Clear to auscultation anteriorly. Heart S1, S2. Regular rate and rhythm. ABDOMEN: Soft, no tenderness. Extremities: No edema of the feet. LABS: Hemoglobin is 10.1, white count 7.0 with a creatinine 0.93. Blood culture repeat has been negative. DIAGNOSTIC IMPRESSION AND PLAN: Patient with group B strep bacteremia in this patient who did have recent TURP procedure. Did have positive urinalysis. The urine culture subsequently came back negative. Followup blood culture negative. The patient did have echocardiogram did not show any vegetation The patient does not have any other clinical focus of infection. We will recommend switching him either to Ceftin 500 mg twice a day for 10 days or continuing with IV Rocephin for another week at the rehab. and Close outpatient followup. We will also recommend repeating his blood culture after he completes antibiotic therapy to make sure no evidence of any recurrence of bacteremia. Family at the bedside. Their questions and concerns were answered. MMODL / IJN: [id number] / RAYMOND
== END 2018-12-23 15:03 | disposition home health service (06) | DRG 871 ==
LOC: EC 18:48 → 3SCARD 21:45 → 3NMEDONC 12-22 17:40
PROVIDERS: ADMIT Hospitalist; ATTEND Hospitalist
DX: A40.1 Sepsis due to streptococcus, group B (principal); G92 Toxic encephalopathy; J98.11 Atelectasis; N39.0 Urinary tract infection, site not specified; R65.20 Severe sepsis without septic shock; I48.0 Paroxysmal atrial fibrillation; J84.10 Pulmonary fibrosis, unspecified; I44.1 Atrioventricular block, second degree; I11.9 Hypertensive heart disease without heart failure; E03.9 Hypothyroidism, unspecified; E66.9 Obesity, unspecified; E78.5 Hyperlipidemia, unspecified; G89.29 Other chronic pain; M48.061 Spinal stenosis, lumbar region without neurogenic claudication; M48.07 Spinal stenosis, lumbosacral region; N40.1 Benign prostatic hyperplasia with lower urinary tract symptoms; M54.5 Low back pain; Z68.33 Body mass index [BMI] 33.0-33.9, adult; Z90.79 Acquired absence of other genital organ(s); Z87.891 Personal history of nicotine dependence; Z88.0 Allergy status to penicillin; Z79.890 Hormone replacement therapy; Z79.899 Other long term (current) drug therapy; Z98.42 Cataract extraction status, left eye; Z98.41 Cataract extraction status, right eye; Z96.1 Presence of intraocular lens
CPT/HCPCS: 36415; 70450; 71045; 71046; 74177; 80048; 80053; 81001; 82550; 83605; 84436; 84439; 84443; 85025; 85027; 85610; 85652; 85730; 86140; 87040; 87077; 87086; 87186; 87502; 93005; 93306; 96361; 96374; 96375; 99285

== ENCOUNTER 2018-12-28 12:23 | Inpatient (IN) | payer MEDICARE, BC ==
[2018-12-28 14:56] LABS: Glucose,Whole Blood 154 mg/dL (75-99)
[2018-12-28 16:08] LABS: ABG Base Excess 3.6 mmol/L; ABG HCO3 27 mmol/L (21-25); ABG Oxygen Saturation 97.5 % (94-97); ABG PCO2 36 mmHg (35-45); ABG PH 7.48 (7.35-7.45); ABG PO2 93 mmHg (83-108); ABG TCO2 28 mmol/L (19-24); Allen Test Performed? Yes
--- NOTE | 2018-12-28 16:25 | XR ---
EXAMINATION TYPE: XR chest 1V portable DATE OF EXAM: 12/28/2018 COMPARISON: 12/21/2018 HISTORY: Shortness of breath TECHNIQUE: Single frontal view of the chest is obtained. FINDINGS: Improved aeration of the lungs in comparison the prior. Chronic interstitial prominence. T here is no focal air space opacity, pleural effusion, or pneumothorax seen. The cardiac silhouette s ize is mildly enlarged. The osseous structures are intact. Diffuse osseous demineralization seen. IMPRESSION: Improved aeration of the lungs in comparison to the prior exam. No focal consolidation o r residual interstitial edema.
--- NOTE | 2018-12-28 17:05 | CT ---
EXAMINATION TYPE: CT brain wo con DATE OF EXAM: 12/28/2018 COMPARISON: 12/19/2018 HISTORY: Lethargic, altered mental status. CT DLP: 1202.4 mGycm Automated exposure control for dose reduction was used. FINDINGS: There is cerebral cortical atrophy. There is no mass effect nor midline shift. There is no sign of in tracranial hemorrhage. The calvarium is intact. IMPRESSION: CEREBRAL ATROPHY. NO ACUTE INTRACRANIAL ABNORMALITY. NO CHANGE.
[2018-12-28 17:16] LABS: Basophils % (A) 0 %; Eosinophils # (A) 0.1 k/uL (0-0.7); Eosinophils % (A) 1 %; HCT 37.2 % (39.0-53.0); HGB 12.7 gm/dL (13.0-17.5); Lymphocytes # (A) 0.7 k/uL (1.0-4.8); Lymphocytes % (A) 7 %; MCH 29.3 pg (25.0-35.0); MCHC 34.2 g/dL (31.0-37.0); MCV 85.7 fL (80.0-100.0); Monocytes # (A) 0.4 k/uL (0-1.0); Monocytes % (A) 4 %; Neutrophils # (A) 9.5 k/uL (1.3-7.7); Neutrophils % (A) 86 %; Platelet Count 282 k/uL (150-450); Poikilocytosis Slight; RBC 4.34 m/uL (4.30-5.90); RDW 14.6 % (11.5-15.5)
[2018-12-28 17:24] LABS: Lactic Acid, Venous 1.2 mmol/L (0.7-2.0)
[2018-12-28 17:26] LABS: Albumin 3.8 g/dL (3.5-5.0); Calcium 9.3 mg/dL (8.4-10.2); Phosphorus 4.2 mg/dL (2.5-4.5); Potassium 3.8 mmol/L (3.5-5.1); Total Bilirubin 1.1 mg/dL (0.2-1.3); Total Protein 7.6 g/dL (6.3-8.2)
--- NOTE | 2018-12-28 19:09 | P.PN ---
Progress Note - Text Progress Note Date: 12/28/18 This is a 78-year-old gentleman who has a history of atrial fibrillation, hypertension, hyperlipidemia, hypothyroidism, recent TURP and subsequent urinary tract infection and bacteremia. He was initially here at [facility] and subsequently transferred to [facility] inpatient rehabilitation. He had been doing well for several days. Last evening he developed significant bradycardia and was found to be in third-degree heart block and transferred to the intensive care unit. He is also having increasing lethargy. He was seen there in consultation today by Dr. Godfrey. He initiated a dopamine drip to maintain a mean arterial pressure of 65-70 mmHg. He initiated 0.9 normal saline at 75 ML's per hour. The patient remained quite somnolent and lethargic and was transferred here today for neurologic evaluation. Cardiology is on the case as well and due to the recent bacteremia no plans for transvenous or permanent pacemaker implantation at this time. He is seen here tonight in the intensive care unit. He does arouse to loud verbal stimuli. Moving all 4 extremities. However does drift back off easily. Arterial blood gases on 32% FiO2 revealed a pO2 of 93, pCO2 36, pH 7.48. O2 saturations in the mid 90s. He is afebrile. Chest x-ray shows improved aeration compared to previous here on 12/21/2018. No focal consolidation or residual interstitial edema. Computed tomography scan of the brain revealed cerebral atrophy. No acute intracranial abnormalities. His cardiac rhythm is fluctuating from a sinus rhythm in the 40s with first-degree AV block alternating with a third-degree heart block with ventricular rates in the 30s. He was seen by cardiology at [facility] today. White count 11.0. Hemoglobin 12.7. Sodium 138. Potassium 3.8. Creatinine 1.33. Lactic acid 1.2. TSH 1.67. Troponin 1.140. Assessment 1 altered mental status of unclear etiology 2 complete heart block 3 recent TURP with subsequent urinary tract infection and bacteremia with group B strep 4 recent diagnosis of atrial fibrillation, anticoagulated with Eliquis 5 hypertension 6 hyperlipidemia 7 hypothyroidism
[2018-12-28] MEDS: ENOXAPARIN 40 MG/0.4 ML SYRINGE SQ SCH ×2 (19:15→19:29)
[2018-12-28] MEDS: DOPamine DRIP 800 MG in WATER FOR INJECTION 1 250ML.BAG IV SCH (19:29)
[2018-12-28] MEDS: SODIUM CHLORIDE 0.9% 1,000 ML IV SCH ×2 (19:30→21:16)
[2018-12-28] MEDS ORDERED: VANCOMYCIN 1,000 MG in SODIUM CHLORIDE 0.9% 250 ML IVPB STA (20:21)
[2018-12-28] MEDS ORDERED: VANCOMYCIN IV PER PHARMACY 1 EACH MISC MISCELLANE PRN (20:24)
[2018-12-28] MEDS ORDERED: VANCOMYCIN 2,000 MG in SODIUM CHLORIDE 0.9% 500 ML 500 ML IVPB SCH (21:00)
[2018-12-28] MEDS: LEVOTHYROXINE IVP 100 MCG/5 ML VIAL IV SCH (21:56)
--- NOTE | 2018-12-28 23:05 | P.CNNES ---
History of Present Illness Consult date: 12/28/18 Reason for Consult: AMS Chief complaint: AMS History of Present Illness: HISTORY OF PRESENT ILLNESS: Thank you for allowing me to evaluate Mr. Ankit Watkins. Mr. Herrera is a 78 year-old man with PMHx of HTN, HLD, BPH, presenting to [facility] for altered mental status. Patient , daughter and son are at bedside. They state that patient was doing well until about 2 weeks ago when he had the TURP procedure. He came home and since then, patient was more drowsy. He came to the hospital where he was found to temperature of 103 and a UTI. Per RN, during that admission, patient was found with paroxysmal atrial fibrillation, at which time patient was started on Eliquis. Patient got treated with antibiotics, he seemed to be doing better, was transferred to rehab where he was recovering well when he started being less responsive. Patient did not seem to have any weakness in his extremities. Patient had been eating well and ambulating. Patient was initially at an OSH and transferred to [facility] for neurology consultation. CT head apparently not done at the OSH. CT head done after admission, which did not show any acute intracranial process. There possible/questionable hypodense lesion in the L reinier area. Patient during this admission found with significant bradycardia with third degree block, patient will most likely require a pacemaker but concern for bacteremia/recent infection. PAST MEDICAL HISTORY: HTN, HLD, BPH, hypothyroidism PAST SURGICAL HISTORY: Bilateral cataract surgery, recent TURP surgery HOME MEDICATIONS: Simvastatin, levothyroxine, enalapril-HCTZ, ALLERGIES: Penicillins SOCIAL HISTORY: Former smoker PHYSICAL EXAMINATION: VITAL SIGNS: T 98.2 HR 36 RR 16 BP 112/72 O2 sat 96% on 3L O2 via NC GEN.: Opens eyes to noxious stimuli HEENT: NCAT, sclera without icterus NECK: Supple SKIN AND EXTREMITIES: Warm to touch, no edema NEURO: MENTAL STATUS: Patient stuporous, opens eyes to noxious stimuli. Patient was able to say his name. Unable to say his 's name. Follow commands to show 2 fingers with his right hand CRANIAL NERVES II THROUGH XII: II: Pupils are equal and reactive to light symmetrically. Does not blink to threat in either eye III, IV, : Right gaze preference VII. No clear facial asymmetry. MOTOR/SENSORY: Grimaces and withdraws to pain in all 4 extremities. More readily moves his right side. REFLEXES: 2+ throughout. Toes are downgoing. COORDINATION/GAIT: deferred DIAGNOSTIC TESTING: LABORATORY: WBC 11.0 hemoglobin 12.7 platelet 282 ABG pCO2 36 pH 7.48 sodium 138 potassium 3.8 chloride 102 bicarb 26 BUN 37 creatinine 1.33 glucose 156 AST 44 ALT 62 alk phos ammonia 25 troponin 0 TSH 1.67 IMAGING: CT Head w/o contrast 12/28/18: Cerebral atrophy. No acute intracranial abnormality. No change. ASSESSMENT: 78 year-old man with PMHx of HTN, HLD, BPH, presenting to [facility] for altered mental status. Patient with recent hospitalization for UTI after patient had the TURP procedure. Patient had improved clinically, was at rehab, and declined again. At this time, unclear etiology of patient's AMS. Patient was able to say his name. Cannot rule out subclinic seizure as etiology. CT Head also showing possible hypodense lesion in L reinier. RECOMMENDATIONS: 1. MRI brain w/o contrast 2. Stat EEG first thing tomorrow morning 3. Patient pending THEODORE 4. Labs: Vitamin B12, RPR Past Medical History Past Medical History: Atrial Fibrillation, Hyperlipidemia, Hypertension, Prostate Disorder, Thyroid Disorder History of Any Multi-Drug Resistant Organisms: None Reported Past Surgical History: Prostate Surgery Additional Past Surgical History / Comment(s): COLONOSCOPY. BILAT CATARACTS. TURP procedure Past Anesthesia/Blood Transfusion Reactions: No Reported Reaction Past Psychological History: No Psychological Hx Reported Smoking Status: Former smoker Past Alcohol Use History: None Reported Additional Past Alcohol Use History / Comment(s): QUIT SMOKING 1972 Past Drug Use History: None Reported - Past Family History Mother Family Medical History: No Reported History Medications and Allergies Home Medications Medication Instructions Recorded Confirmed Type Enalapril/Hydrochlorothiazide 1 tab PO DAILY 01/22/17 12/28/18 History [Enalapril-Hctz 10-25 mg Tablet] Simvastatin [Zocor] 20 mg PO HS 01/22/17 12/28/18 History Apixaban [Eliquis] 5 mg PO BID #60 tab 12/23/18 12/28/18 Rx Cefuroxime Axetil [Ceftin] 500 mg PO BID #22 tab 12/23/18 12/28/18 Rx Atenolol [Tenormin] 25 mg PO DAILY 12/28/18 12/28/18 History Levothyroxine Sodium [Synthroid] 88 mcg PO DAILY 12/28/18 12/28/18 History Allergies Allergy/AdvReac Type Severity Reaction Status Date / Time Penicillins Allergy Rash/Hives Verified 12/28/18 18:59 Physical Examination - Vital Signs Vital Signs: Vital Signs Temp Pulse Resp BP Pulse Ox 12/28/18 19:00 43 L 23 125/65 94 L 12/28/18 18:30 40 L 23 146/64 95 12/28/18 18:00 42 L 8 L 148/66 97 12/28/18 17:30 44 L 10 L 129/70 95 12/28/18 17:00 40 L 22 119/70 96 12/28/18 16:30 37 L 33 H 144/58 97 12/28/18 16:00 98.2 F 36 L 16 112/72 96 12/28/18 15:30 46 L 25 H 92 L 12/28/18 15:00 33 L 19 152/70 90 L Intake and Output 12/28/18 12/28/18 12/28/18 06:59 14:59 22:59 Intake Total 300 Balance 300 Intake: IV 300 Sodium Chloride 0.9% 1, 300 000 ml @ 75 mls/hr IV . [id number] PENDING [facility] Rx#:[id number] Other: Voiding Method Indwelling Catheter Weight 106.2 kg Results - Laboratory Findings CBC and BMP: 12/28/18 16:58 12/28/18 16:58 Abnormal Lab Findings: Abnormal Labs 12/28/18 12/28/18 12/28/18 14:54 16:06 16:58 WBC 11.0 H Hgb 12.7 L Hct 37.2 L Neutrophils # 9.5 H Lymphocytes # 0.7 L ABG pH 7.48 H ABG HCO3 27 H ABG Total CO2 28 H ABG O2 Saturation 97.5 H BUN Creatinine Glucose POC Glucose (mg/dL) 154 H Troponin I 12/28/18 12/28/18 16:58 16:58 WBC Hgb Hct Neutrophils # Lymphocytes # ABG pH ABG HCO3 ABG Total CO2 ABG O2 Saturation BUN 37 H Creatinine 1.33 H Glucose 156 H POC Glucose (mg/dL) Troponin I 1.140 H*
[2018-12-29 01:17] LABS: Appearance,Urine Cloudy (Clear); Bilirubin,Urine Negative (Negative); Blood,Urine Moderate (Negative); Color,Urine Yellow; Glucose,Urine (UA) Negative (Negative); Ketones,Urine Negative (Negative); Leukocyte Esterase,Urine Large (Negative); Mucus,Urine Rare /hpf; Nitrite,Urine Negative (Negative); Protein,Urine 1+ (Negative); RBC,Urine 31 /hpf (0-5); Specific Gravity,Urine 1.018 (1.001-1.035); Squamous Epithelial Cell,Urine <1 /hpf (0-4); Urobilinogen,Urine <2.0 mg/dL (<2.0)
[2018-12-29 06:17] LABS: Basophils % (A) 0 %; Eosinophils # (A) 0.1 k/uL (0-0.7); Eosinophils % (A) 1 %; HCT 36.5 % (39.0-53.0); HGB 12.3 gm/dL (13.0-17.5); Hypochromasia Slight; Lymphocytes # (A) 0.8 k/uL (1.0-4.8); Lymphocytes % (A) 9 %; MCH 29.1 pg (25.0-35.0); MCHC 33.8 g/dL (31.0-37.0); MCV 85.9 fL (80.0-100.0); Mean Platelet Volume 6.2; Monocytes # (A) 0.4 k/uL (0-1.0); Monocytes % (A) 5 %; Neutrophils # (A) 7.5 k/uL (1.3-7.7); Neutrophils % (A) 83 %; Platelet Count 238 k/uL (150-450); Poikilocytosis Slight; RBC 4.25 m/uL (4.30-5.90); RDW 14.5 % (11.5-15.5); WBC 9.1 k/uL (3.8-10.6)
[2018-12-29 06:22] LABS: INR 1.1 (<1.2); Partial Thromboplastin Time 25.5 sec (22.0-30.0); Prothrombin Time 11.2 sec (9.0-12.0)
[2018-12-29 06:53] LABS: Albumin 3.6 g/dL (3.5-5.0); Calcium 9.1 mg/dL (8.4-10.2); Potassium 3.7 mmol/L (3.5-5.1); Total Protein 7.5 g/dL (6.3-8.2)
[2018-12-29 09:15] LABS: ABG Base Excess 1.2 mmol/L; ABG HCO3 25 mmol/L (21-25); ABG Oxygen Saturation 96.3 % (94-97); ABG PCO2 36 mmHg (35-45); ABG PH 7.46 (7.35-7.45); ABG PO2 80 mmHg (83-108); ABG TCO2 26 mmol/L (19-24); Allen Test Performed? Yes
[2018-12-29] MEDS ORDERED: BENZOCAINE SPRAY 1 CAN MUCOUS MEM PRN (11:31)
[2018-12-29] MEDS ORDERED: MIDAZOLAM 2 MG/2 ML VIAL IV STA (11:32)
[2018-12-29] MEDS ORDERED: fentaNYL (PF) 50 MCG/ML 2 ML AMP IVP ONE (11:34)
[2018-12-29] MEDS ORDERED: ATROPINE SULFATE 0.1 MG/ML 10ML SYRINGE ONE (12:47)
[2018-12-29] MEDS: ENOXAPARIN 40 MG/0.4 ML SYRINGE SQ SCH (13:01)
[2018-12-29] MEDS ORDERED: GENTAMICIN PER PHARMACY MISCELLANE SCH (14:00)
--- NOTE | 2018-12-29 14:26 | ECHOT ---
TRANSESOPHAGEAL ECHOCARDIOGRAM INDICATION: Vegetation. Mr. aWtkins is a 78-year-old gentleman that got transferred from [facility] with AV dissociation, high-grade AV block and recent CVA. Patient initially was going through rehab at [facility] and subsequently became more confused. The patient had been on dopamine. Heart rates have been around 35-40 beats and he is hemodynamically stable, otherwise. An echocardiogram done at [facility] revealed a vegetation on the mitral valve due to which I am doing a transesophageal echo today. Risks and benefits have been explained to the family. PROCEDURE NOTE: After obtaining informed consent, transesophageal echocardiogram was performed in left lateral position using an Omni plane probe. Patient was given intravenous Versed, fentanyl and Xylocaine spray. Tolerated the procedure well and the procedure was completed uneventfully. FINDINGS: 1. There is a 1 cm mobile echodense lesion attached to the atrial surface of the posterior mitral leaflet. There is mild to moderate central mitral regurgitation noted. I am not seeing any abscess. I am not seeing any perivalvular leak. Aortic valve is a 3-leaflet valve. I do not see any vegetations on the aortic valve. 2. Tricuspid valve appears normal. Shows mild tricuspid regurgitation. Left atrium appears enlarged. There is quite a bit of spontaneous echo contrast noted. Right atrium and right ventricle exam within normal limits. Left ventricle has normal size, wall motion and systolic function. Aortic root appears normal. There is no evidence of [id number] shunt across the interatrial septum, by color-flow Doppler, nor is there any jwmne-fi-jujo shunt with agitated saline contrast study. There is moderate atherosclerotic plaque noted within the aorta. CONCLUSION: A 1 cm mobile echodense structure attached to the posterior mitral leaflet on the atrial surface consistent with a diagnosis of vegetation noted. I do not see any abscess. PLAN: I am going to seek input from a cardiothoracic surgeon regarding the need for surgical intervention given the possible thromboembolic phenomenon happening from the vegetation. I am going to do a temporary transvenous pacemaker so that we have more control on his heart rhythm. It is possible that the bradyarrhythmia is related to a perivalvular extension of the infection and the involvement of the conduction system. MMODL / IJN: [id number] /
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
[2018-12-29] MEDS: GENTAMICIN 100 MG in SODIUM CHLORIDE 0.9% 100 ML IVPB SCH ×2 (16:31→23:43)
--- NOTE | 2018-12-29 16:35 | P.CNPUL ---
History of Present Illness Consult date: 12/29/18 Chief complaint: Altered mentation, third-degree AV block History of present illness: This is a [age]-year-old male patient who got transferred to our intensive care unit from [facility] as the patient was getting progressively worse neurologically and his overall condition had been progressively declining while undergoing his rehabilitation P noted the patient had history of BPH and he underwent a TURP. Following that the patient came into the hospital because of generalized weakness and tiredness and confusion and fever and chills a few days duration. He was found to be septic with strep group B. He was treated with IV antibiotics and ultimately was discharged on oral antibiotics. Repeat cultures were negative. While at rehab, he had progressive altered mentation. He continued to be drowsy. He was arousable and he would answer questions on and off and he seems to be at times appropriate. Nevertheless, if left unstimulated, the patient will go back into sleep and the patient will also demonstrated Hammad-Carrillo breathing. CAT scan of the brain has been done and it was negative. The patient got transferred to [facility]. Prior to his transfer here the patient underwent an echocardiogram at [facility] that showed evidence of mitral valve regurgitation. He was also found to be in third-degree AV block. Nevertheless, he did not become hypotensive and his mean arterial pressures continue to be above 65. I evaluated this patient yesterday. Did not have the chance to do a full consultation as the patient had been seen by a partner. I'm aware that the patient is currently diagnosed having infective endocarditis. I have a many combination of antibiotics including Rocephin and vancomycin. Repeat cultures of been sent. HEENT also to be done today to confirmed the findings. Neurologically, he is arousable. His neurologic exam is nonfocal. Moving all 4 extremities. No facial asymmetry. No Babinski. No clonus. An MRI of the brain is to follow. Neurologic consu ltation is also to follow. His current rate is in the mid 30s and the patient is in a third-degree AV block. 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 The patient was initially started on vancomycin as the patient was ALLERGIC to penicillins. Subsequently was switched to Rocephin and at time of discharge the patient was released home on cefuroxime History of Any Multi-Drug Resistant Organisms: None Reported Past Surgical History: Prostate Surgery Additional Past Surgical History / Comment(s): COLONOSCOPY. BILAT CATARACTS. TURP procedure Past Anesthesia/Blood Transfusion Reactions: No Reported Reaction Past Psychological History: No Psychological Hx Reported Smoking Status: Former smoker Past Alcohol Use History: None Reported Additional Past Alcohol Use History / Comment(s): QUIT SMOKING 1972 Past Drug Use History: None Reported - Past Family History Mother Family Medical History: No Reported History Medications and Allergies Home Medications Medication Instructions Recorded Confirmed Type RX: Enalapril/Hydrochlorothiazide 1 tab PO DAILY 01/22/17 12/28/18 History [Enalapril-Hctz 10-25 mg Tablet] RX: Simvastatin [Zocor] 20 mg PO HS 01/22/17 12/28/18 History Cefuroxime Axetil [Ceftin] 500 mg PO BID #22 tab 12/23/18 12/28/18 Rx RX: Apixaban [Eliquis] 5 mg PO BID #60 tab 12/23/18 12/28/18 Rx Atenolol [Tenormin] 25 mg PO DAILY 12/28/18 12/28/18 History Levothyroxine Sodium [Synthroid] 88 mcg PO DAILY 12/28/18 12/28/18 History Allergies Allergy/AdvReac Type Severity Reaction Status Date / Time Penicillins Allergy Rash/Hives Verified 12/28/18 18:59 Physical Exam Vitals: Vital Signs Temp Pulse Resp BP Pulse Ox 12/29/18 13:30 36 L 15 147/63 98 12/29/18 13:15 40 L 18 131/64 99 12/29/18 13:00 37 L 17 156/66 95 12/29/18 12:45 42 L 17 186/62 98 12/29/18 12:40 35 L 18 172/73 98 12/29/18 12:35 41 L 16 156/72 99 12/29/18 12:30 44 L 20 140/66 97 12/29/18 12:25 42 L 40 H 149/67 98 12/29/18 12:20 37 L 12 103/60 88 L 12/29/18 12:15 34 L 41 H 87/56 97 12/29/18 12:10 37 L 21 133/53 97 12/29/18 12:05 40 L 41 H 157/60 98 12/29/18 12:00 97.1 F L 39 L 21 149/64 94 L 12/29/18 11:55 38 L 15 156/66 99 12/29/18 11:50 38 L 16 153/72 96 12/29/18 11:45 37 L 40 H 153/72 97 12/29/18 11:40 35 L 16 153/72 97 12/29/18 11:35 38 L 10 L 153/72 95 12/29/18 11:30 37 L 7 L 149/64 98 12/29/18 11:25 37 L 7 L 149/64 95 12/29/18 11:20 39 L 17 149/64 96 12/29/18 11:15 39 L 23 149/64 95 12/29/18 11:10 38 L 25 H 149/64 96 12/29/18 11:05 36 L 18 149/64 99 12/29/18 11:00 38 L 24 151/67 96 12/29/18 10:55 38 L 16 151/67 96 12/29/18 10:50 39 L 21 151/67 94 L 12/29/18 10:45 40 L 15 151/67 96 12/29/18 10:40 37 L 16 151/67 95 12/29/18 10:35 39 L 16 151/67 99 12/29/18 10:30 39 L 19 153/65 97 12/29/18 10:00 38 L 13 155/61 94 L 12/29/18 09:30 33 L 11 L 158/87 93 L 12/29/18 09:00 38 L 8 L 156/80 95 12/29/18 08:30 40 L 22 181/70 94 L 12/29/18 08:00 97.6 F 39 L 27 H 156/65 93 L 12/29/18 07:30 41 L 13 154/72 98 12/29/18 07:00 40 L 16 136/60 96 12/29/18 06:30 38 L 16 145/70 93 L 12/29/18 06:00 39 L 14 145/70 90 L 12/29/18 05:30 29 L 12 161/66 98 12/29/18 05:00 40 L 28 H 161/66 98 12/29/18 04:30 40 L 4 L 143/67 96 12/29/18 04:00 98.3 F 41 L 22 140/71 97 12/29/18 03:30 38 L 22 139/62 96 12/29/18 03:00 40 L 16 148/67 96 12/29/18 02:30 39 L 22 177/71 91 L 12/29/18 02:00 44 L 26 H 176/59 94 L 12/29/18 01:30 43 L 8 L 166/63 93 L 12/29/18 01:00 43 L 27 H 160/65 97 12/29/18 00:36 42 L 16 95 12/29/18 00:30 43 L 14 150/57 96 12/29/18 00:00 98.6 F 44 L 21 157/62 91 L 12/28/18 23:30 43 L 12 140/68 96 12/28/18 23:00 43 L 14 132/65 97 12/28/18 22:30 38 L 10 L 130/74 99 12/28/18 22:00 40 L 24 131/70 94 L 12/28/18 21:30 34 L 22 141/68 95 12/28/18 21:24 97 12/28/18 21:00 43 L 18 125/62 92 L 12/28/18 20:30 37 L 24 143/64 90 L 12/28/18 20:00 99.1 F 43 L 21 116/67 93 L 12/28/18 19:30 39 L 21 148/61 92 L 12/28/18 19:00 43 L 23 125/65 94 L 12/28/18 18:30 40 L 23 146/64 95 12/28/18 18:00 42 L 8 L 148/66 97 12/28/18 17:30 44 L 10 L 129/70 95 12/28/18 17:00 40 L 22 119/70 96 12/28/18 16:30 37 L 33 H 144/58 97 Intake and Output 12/29/18 12/29/18 12/29/18 06:59 14:59 22:59 Intake Total 675 875 Output Total 680 670 Balance -5 205 Intake: IV 675 875 Sodium Chloride 0.9% 1, 675 875 000 ml @ 75 mls/hr IV . [id number] [facility] Rx#:[id number] Output: Urine 680 670 Uretheral (Pablo) 50 Other: Voiding Method Indwelling Catheter Indwelling Catheter Weight 99.1 kg Gen. appearance the patient has quite lethargic and obtunded. He opens his eyes when his called his name and whenever is given to painful stimulation. He is able to follow some simple commands and is able to follow simple directions and answers simple questions. No signs of any respiratory distress. Upon further monitoring, while sleeping, the patient is undergoing Hammad-Carrillo breathing. Head exam was generally normal. There was no scleral icterus or corneal arcus. Mucous membranes were moist. Neck was supple and without jugular venous distension, thyromegaly, or carotid bruits. Carotids were easily palpable bilaterally. There was no adenopathy. Neurologic exam in general is nonfocal. Pupils are equal and reactive to light and they're symmetrical. No clonus. No Babinski. Able to move all 4 extremities without any limitation and the patient is withdrawing to painful stimulation. No facial asymmetry. Sensorimotor functions cannot be accurately assessed as the patient is not cooperating with that. Reflexes are symmetrical +2. Gait is not assessed. Lungs were clear to auscultation and percussion, and with normal diaphragmatic excursion. No wheezes or rales were noted. Heart sounds are bradycardic consistent with third-degree AV block. A faint murmur can be appreciated lung left lateral sternal border. Abdominal exam revealed normal bowel sounds. The abdomen was soft, non-tender, and without masses, organomegaly, or appreciable enlargement of the abdominal aorta. Examination of the extremities revealed easily palpable radial, femoral and pedal pulses. There was no cyanosis, clubbing or edema. Examination of the skin revealed no evidence of significant rashes, suspicious appearing nevi or other concerning lesions. Psychiatric evaluation cannot be done. Results - Laboratory Findings CBC and BMP: 12/29/18 05:45 12/29/18 05:41 ABG ABG pH 7.46 (7.35-7.45) H 12/29/18 09:04 ABG pCO2 36 mmHg (35-45) 12/29/18 09:04 ABG pO2 80 mmHg (83-108) L 12/29/18 09:04 ABG O2 Saturation 96.3 % (94-97) 12/29/18 09:04 PT/INR, D-dimer PT 11.2 sec (9.0-12.0) 12/29/18 05:45 INR 1.1 (<1.2) 12/29/18 05:45 Abnormal lab findings: Abnormal Labs 12/28/18 12/28/18 12/28/18 14:54 16:06 16:58 WBC 11.0 H RBC Hgb 12.7 L Hct 37.2 L Neutrophils # 9.5 H Lymphocytes # 0.7 L ABG pH 7.48 H ABG pO2 ABG HCO3 27 H ABG Total CO2 28 H ABG O2 Saturation 97.5 H BUN Creatinine Glucose POC Glucose (mg/dL) 154 H Troponin I Urine Protein Urine Blood Ur Leukocyte Esterase Urine RBC Urine WBC Urine WBC Clumps Urine Mucus 12/28/18 12/28/18 12/28/18 16:58 16:58 23:48 WBC RBC Hgb Hct Neutrophils # Lymphocytes # ABG pH ABG pO2 ABG HCO3 ABG Total CO2 ABG O2 Saturation BUN 37 H Creatinine 1.33 H Glucose 156 H POC Glucose (mg/dL) Troponin I 1.140 H* 1.260 H* Urine Protein Urine Blood Ur Leukocyte Esterase Urine RBC Urine WBC Urine WBC Clumps Urine Mucus 12/29/18 12/29/18 12/29/18 00:50 05:31 05:41 WBC RBC Hgb Hct Neutrophils # Lymphocytes # ABG pH ABG pO2 ABG HCO3 ABG Total CO2 ABG O2 Saturation BUN 39 H Creatinine 1.27 H Glucose 134 H POC Glucose (mg/dL) Troponin I 1.120 H* Urine Protein 1+ H Urine Blood Moderate H Ur Leukocyte Esterase Large H Urine RBC 31 H Urine WBC 82 H Urine WBC Clumps Few H Urine Mucus Rare H 12/29/18 12/29/18 05:45 09:04 WBC RBC 4.25 L Hgb 12.3 L Hct 36.5 L Neutrophils # Lymphocytes # 0.8 L ABG pH 7.46 H ABG pO2 80 L ABG HCO3 ABG Total CO2 26 H ABG O2 Saturation BUN Creatinine Glucose POC Glucose (mg/dL) Troponin I Urine Protein Urine Blood Ur Leukocyte Esterase Urine RBC Urine WBC Urine WBC Clumps Urine Mucus - Diagnostic Findings Chest x-ray: image reviewed Assessment and Plan Plan: 1 infective endocarditis possibly related to recent activity noted the patient encountered post TURP. The patient was infected with strep group B and the patient was hospitalized and received inpatient antibiotic treatment and he was discharged home on oral antibiotic. Apparently he has mitral valve vegetation any THEODORE to follow today. 2 third-degree AV block, likely complication of infective endocarditis, rule out cardiac abscess. 3 altered mental status. Exact cause is not clear. Rule out encephalopathy. Rule out CVA. Rule out septic embolization. CAT scan of the brain has been negative for now. There is a possibility of a hypodense lesion in the left reinier and this obviously raises the concern for a brainstem CVA 4 Hammad-Carrillo breathing secondary to above 5 benign prostatic hypertrophy post TURP 6 hyperlipidemia 7 hypertension 8 hypothyroidism 9 troponin leak secondary to endocarditis Plan Monitor mental status. Neurology consultation. Cardiology consultation. Continue Rocephin. Gentamicin was added by infectious disease. THEODORE to be done today. Proceed with a MRI of the brain. May need a transvenous pacemaker regarding his third-degree AV block. This will be discussed with cardiology. M eanwhile, the patient is unable to take anything orally. We'll keep him nothing by mouth for now. Will hold anticoagulation. We'll switch his Synthroid to IV. Family is at the bedside. Unfortunately, his long-term prognosis poor baseline above-mentioned comorbidities. He may not be a good candidate for surgical intervention. They rate, it'll be advisable to have an evaluation with CT surgery once the disease completed. He'll be kept in ICU for now. We'll continue to follow.
--- NOTE | 2018-12-29 16:42 | MR ---
EXAMINATION TYPE: MR brain wo con DATE OF EXAM: 12/29/2018 COMPARISON: CT brain 12/28/2018 HISTORY: AMS, possible stroke CONTRAST: Performed utilizing 0 mL intravenous Gadavist gadolinium contrast. TECHNIQUE: Multiplanar, multiecho imaging on a 3.0 Tatiana magnet is performed through the brain. Stud y is performed within 24 hours of arrival to the hospital. The craniovertebral junction is normal. The pituitary is normal. Diffusion-weighted imaging is performed. There are multiple punctate areas of hyperintensity scatter ed throughout the brain. This would include multiple hypointensities within the right and left cerebe llar lobes peripheral areas of hyperintensity within the left occipital and parietal lobes and within the right occipital parietal regions. Hyperintensities in the subependymoma right parietal region wi thin the bilateral thalami within the periventricular right frontal lobe region and multiple perivent ricular white matter hyperintensities. Subcortical white matter hyperintensity may be in the right fr ontal lobe. Cortical hyperintensities are near the vertex. Findings can be compatible with multiple areas of ischemia. Consider venous infarcts. This does not f ollow a single typical arterial distribution. Number of areas which are hyperintense on diffusion-weighted imaging are also hyperintense on the inv ersion recovery weighted sequences. Diffusion-weighted imaging demonstrates greater number and distri bution of suspected ischemic changes Ventricles and sulci are prominent for the patient age. No temporal horn dilatation is evident. IMPRESSIONS: 1. Multiple small areas of hyperintensity within cortical, subcortical, deep tissue including cerebel lum and cerebral hemispheres. Consider venous infarcts.
[2018-12-29] MEDS: DOPamine DRIP 800 MG in WATER FOR INJECTION 1 250ML.BAG IV SCH (16:43)
--- NOTE | 2018-12-29 17:12 | P.GSCN ---
History of Present Illness Consult date: 12/29/18 Reason for Consult: Vegetation of the mitral valve leaflet Requesting physician: Aki Wheeler History of present illness: This is a 78-year-old gentleman who is followed by Dr. Tri Wang on an outpatient basis. His past medical history significant for hypertension, hyperlipidemia, recently diagnosed paroxysmal atrial fibrillation, prostate disorder, thyroid disorder and remote history of nicotine dependence which he quit smoking in 1971. On 12/10/2018 the patient underwent a TURP procedure and he was according to his family discharged home and was recovering well. On 12/15/2018 he started developing generalized weakness, chills and fevers at home. Subsequently on 12/19/2018 he presented to the emergency department here at [facility] due to reported confusion and generalized weakness. During that admission he was found to be bacteremic with strep group B positive blood cultures. He was treated with IV antibiotics which were managed by infectious disease and ultimately was discharged to [facility] inpatient rehab on oral antibiotics therapy. His history is being obtained from the patient's and daughter present at his bedside as the patient currently is a poor historian. While at inpatient rehab his and daughter report that he was recovering quite well and was able to shower independently. On Thursday evening 12/25/2018 they report he started having some alteration in his mental status and was quite drowsy which progressed over the next couple of days. He was subsequently transferred to the intensive care unit at [facility] and then transferred to [facility] for further evaluation and neurological workup. Currently the patient is arousable and he answers yes and no questions appropriately, reports the month is November and could recognize his in saying her name. He is moving all 4 extremities with verbal stimuli. A computed tomography scan of his brain was completed which showed cerebral atrophy and no acute intracranial abnormality per the report. A 12-lead EKG was also completed which demonstrated a heart rate of 38 BPM with a third-degree AV block. He was also seen by neurology who feel the CT scan of his brain could be showing a possible hypodense lesion in his L Cassandra. A transesophageal echocardiogram was also completed today performed by Dr. conrad from [facility] which demonstrated a 1 cm mobile echodense lesion attached to the atrial surface of the posterior mitral leaflet. It also demonstrated mild to moderate central mitral valve regurgitation. Subsequently due to the patient's transesophageal echocardiogram results showing that the 1 cm mobile echodense lesion attached to the atrial surface of this posterior mitral valve leaflet a consult was placed to Dr. Terence Alicea from cardiothoracic surgery for further evaluation and treatment recommendations. Review of Systems A 14 point review systems was negative except as mentioned in HPI. Past Medical History Past Medical History: Atrial Fibrillation, Hyperlipidemia, Hypertension, Prostate Disorder, Thyroid Disorder Additional Past Medical History / Comment(s): Recent hospitalization for sepsis related to strep group B. The patient was initially started on vancomycin as the patient was ALLERGIC to penicillins. Subsequently was switched to Rocephin and at time of discharge the patient was released home on cefuroxime History of Any Multi-Drug Resistant Organisms: None Reported Past Surgical History: Prostate Surgery Additional Past Surgical History / Comment(s): COLONOSCOPY. BILAT CATARACTS. TURP procedure Past Anesthesia/Blood Transfusion Reactions: No Reported Reaction Past Psychological History: No Psychological Hx Reported Smoking Status: Former smoker Past Alcohol Use History: None Reported Additional Past Alcohol Use History / Comment(s): QUIT SMOKING 1972 Past Drug Use History: None Reported - Past Family History Mother Family Medical History: No Reported History Medications and Allergies Home Medications Medication Instructions Recorded Confirmed Type Enalapril/Hydrochlorothiazide 1 tab PO DAILY 01/22/17 12/28/18 History [Enalapril-Hctz 10-25 mg Tablet] Simvastatin [Zocor] 20 mg PO HS 01/22/17 12/28/18 History Apixaban [Eliquis] 5 mg PO BID #60 tab 12/23/18 12/28/18 Rx Cefuroxime Axetil [Ceftin] 500 mg PO BID #22 tab 12/23/18 12/28/18 Rx Atenolol [Tenormin] 25 mg PO DAILY 12/28/18 12/28/18 History Levothyroxine Sodium [Synthroid] 88 mcg PO DAILY 12/28/18 12/28/18 History Allergies Allergy/AdvReac Type Severity Reaction Status Date / Time Penicillins Allergy Rash/Hives Verified 12/28/18 18:59 Surgical - Exam Vital Signs Pulse Resp BP Pulse Ox 33 L 19 152/70 90 L 12/28/18 15:00 12/28/18 15:00 12/28/18 15:00 12/28/18 15:00 - General The patient is lethargic and obtunded. Opens his eyes with verbal stimuli, is stating his 's name. Moving all 4 extremities with verbal stimuli. Can answer yes or no questions. well developed, well nourished, no distress, no pain, obese - Eyes PERRL, normal ocular movement - ENT normal pinna, normal nares, normal mucosa, no hearing loss, no congestion, dentures - Neck Neck is supple, no lymphadenopathy. no masses, no bruits, trachea midline, no venous distension - Respiratory Lungs sounds are essentially clear throughout, diminished to his bilateral bases. Respirations are with Hammad-Carrillo breathing. No wheezes, rhonchi or crackles appreciated. - Cardiovascular Bradycardic rhythm. S1 and S2 resident, positive for systolic murmur 2/6. - Abdomen Abdomen is soft, nontender and nondistended. Active bowel sounds present all 4 abdominal quadrants. No organomegaly appreciated. No guarding or rigidity. - Genitourinary Pablo catheter for accurate I&O. - Rectum Deferred - Integumentary Skin is warm and dry. No clubbing or cyanosis is present. no rash, no growths, no abnormal pigmentation - Musculoskeletal Moving all 4 extremities with verbal stimuli. Generalized weakness. - Psychiatric oriented to person, oriented to place Results - Labs 12/29/18 05:45 12/29/18 05:41 Abnormal Lab Results - Last 24 Hours (Table) 12/28/18 12/28/18 12/28/18 Range/Units 16:58 16:58 16:58 WBC 11.0 H (3.8-10.6) k/uL RBC (4.30-5.90) m/uL Hgb 12.7 L (13.0-17.5) gm/dL Hct 37.2 L (39.0-53.0) % Neutrophils # 9.5 H (1.3-7.7) k/uL Lymphocytes # 0.7 L (1.0-4.8) k/uL ABG pH (7.35-7.45) ABG pO2 (83-108) mmHg ABG Total CO2 (19-24) mmol/L BUN 37 H (9-20) mg/dL Creatinine 1.33 H (0.66-1.25) mg/dL Glucose 156 H (74-99) mg/dL Troponin I 1.140 H* (0.000-0.034) ng/mL Urine Protein (Negative) Urine Blood (Negative) Ur Leukocyte Esterase (Negative) Urine RBC (0-5) /hpf Urine WBC (0-5) /hpf Urine WBC Clumps (None) /hpf Urine Mucus (None) /hpf 12/28/18 12/29/18 12/29/18 Range/Units 23:48 00:50 05:31 WBC (3.8-10.6) k/uL RBC (4.30-5.90) m/uL Hgb (13.0-17.5) gm/dL Hct (39.0-53.0) % Neutrophils # (1.3-7.7) k/uL Lymphocytes # (1.0-4.8) k/uL ABG pH (7.35-7.45) ABG pO2 (83-108) mmHg ABG Total CO2 (19-24) mmol/L BUN (9-20) mg/dL Creatinine (0.66-1.25) mg/dL Glucose (74-99) mg/dL Troponin I 1.260 H* 1.120 H* (0.000-0.034) ng/mL Urine Protein 1+ H (Negative) Urine Blood Moderate H (Negative) Ur Leukocyte Esterase Large H (Negative) Urine RBC 31 H (0-5) /hpf Urine WBC 82 H (0-5) /hpf Urine WBC Clumps Few H (None) /hpf Urine Mucus Rare H (None) /hpf 12/29/18 12/29/18 12/29/18 Range/Units 05:41 05:45 09:04 WBC (3.8-10.6) k/uL RBC 4.25 L (4.30-5.90) m/uL Hgb 12.3 L (13.0-17.5) gm/dL Hct 36.5 L (39.0-53.0) % Neutrophils # (1.3-7.7) k/uL Lymphocytes # 0.8 L (1.0-4.8) k/uL ABG pH 7.46 H (7.35-7.45) ABG pO2 80 L (83-108) mmHg ABG Total CO2 26 H (19-24) mmol/L BUN 39 H (9-20) mg/dL Creatinine 1.27 H (0.66-1.25) mg/dL Glucose 134 H (74-99) mg/dL Troponin I (0.000-0.034) ng/mL Urine Protein (Negative) Urine Blood (Negative) Ur Leukocyte Esterase (Negative) Urine RBC (0-5) /hpf Urine WBC (0-5) /hpf Urine WBC Clumps (None) /hpf Urine Mucus (None) /hpf Microbiology - Last 24 Hours (Table) 12/29/18 00:50 Urine Culture - Preliminary Urine,Clean Catch Diabetes panel 12/28/18 12/29/18 Range/Units 16:58 05:41 Sodium 138 142 (137-145) mmol/L Potassium 3.8 3.7 (3.5-5.1) mmol/L Chloride 102 104 (98-107) mmol/L Carbon Dioxide 26 27 (22-30) mmol/L BUN 37 H 39 H (9-20) mg/dL Creatinine 1.33 H 1.27 H (0.66-1.25) mg/dL Glucose 156 H 134 H (74-99) mg/dL Calcium 9.3 9.1 (8.4-10.2) mg/dL AST 44 41 (17-59) U/L ALT 62 53 (21-72) U/L Alkaline Phosphatase 73 69 (38-126) U/L Total Protein 7.6 7.5 (6.3-8.2) g/dL Albumin 3.8 3.6 (3.5-5.0) g/dL Thyroid panel 12/28/18 Range/Units 16:58 TSH 1.670 (0.465-4.680) mIU/L Calcium panel 12/28/18 12/29/18 Range/Units 16:58 05:41 Calcium 9.3 9.1 (8.4-10.2) mg/dL Phosphorus 4.2 (2.5-4.5) mg/dL Albumin 3.8 3.6 (3.5-5.0) g/dL Pituitary panel 12/28/18 12/29/18 Range/Units 16:58 05:41 Sodium 138 142 (137-145) mmol/L Potassium 3.8 3.7 (3.5-5.1) mmol/L Chloride 102 104 (98-107) mmol/L Carbon Dioxide 26 27 (22-30) mmol/L BUN 37 H 39 H (9-20) mg/dL Creatinine 1.33 H 1.27 H (0.66-1.25) mg/dL Glucose 156 H 134 H (74-99) mg/dL Calcium 9.3 9.1 (8.4-10.2) mg/dL TSH 1.670 (0.465-4.680) mIU/L Adrenal panel 12/28/18 12/29/18 Range/Units 16:58 05:41 Sodium 138 142 (137-145) mmol/L Potassium 3.8 3.7 (3.5-5.1) mmol/L Chloride 102 104 (98-107) mmol/L Carbon Dioxide 26 27 (22-30) mmol/L BUN 37 H 39 H (9-20) mg/dL Creatinine 1.33 H 1.27 H (0.66-1.25) mg/dL Glucose 156 H 134 H (74-99) mg/dL Calcium 9.3 9.1 (8.4-10.2) mg/dL Total Bilirubin 1.1 1.0 (0.2-1.3) mg/dL AST 44 41 (17-59) U/L ALT 62 53 (21-72) U/L Alkaline Phosphatase 73 69 (38-126) U/L Total Protein 7.6 7.5 (6.3-8.2) g/dL Albumin 3.8 3.6 (3.5-5.0) g/dL - Imaging Chest x-ray: report reviewed, image reviewed Assessment and Plan Assessment: 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 2 third-degree AV block 3 altered mental status. Exact cause is not clear. Rule out CVA. Rule out septic embolization. CAT scan of the brain has been negative. 4 Hammad-Carrillo respirations 5 benign prostatic hypertrophy status post TURP 6 hyperlipidemia 7 hypertension 8 hypothyroidism 9 troponin leak secondary to endocarditis Plan: The patient was seen and examined at his bedside in the intensive care unit. His chart and diagnostics were reviewed. This case was discussed with Dr. Terence Alicea from cardiothoracic surgery. Recommend MRI for follow-up evaluatio n from the computed tomography scan of his brain. Infectious disease for antibiotic management for mitral valve vegetation. At this time it is felt that the patient would be a high risk for cardiac surgery although we cannot rule out the need for surgical intervention in the future. This was discussed with the patient's and daughter present at his bedside. We will continue to follow the patient throughout his hospital course. Continue to optimize medical management. Medical management and other comorbidities per primary care service. Cardiology recommendations per Dr. Wheeler. Thank you Dr. Wheeler for this consult and we will look forward to working with you in the care of your patient. Time with Patient: Greater than 30
--- NOTE | 2018-12-29 20:23 | P.PN ---
Progress Note - Text Progress Note Date: 12/29/18 SUBJECTIVE/INTERVAL EVENTS: No acute overnight events. Family at bedside. Patient more awake and following more commands today. PHYSICAL EXAMINATION: VITAL SIGNS: T 98.3 HR 41 RR 22 BP 140/71 O2 sat 97% on 3L of NC GEN.: Opens eyes to noxious stimuli HEENT: NCAT, sclera without icterus NECK: Supple SKIN AND EXTREMITIES: Warm to touch, no edema NEURO: MENTAL STATUS: Patient stuporous, opens eyes to noxious stimuli. Patient was able to say his name and 's name. Follow commands to show 2 fingers with his left hand and protrude tongue CRANIAL NERVES II THROUGH XII: II: Pupils are equal and reactive to light symmetrically. Does not blink to threat in either eye III, IV, : Right gaze preference VII. No clear facial asymmetry. MOTOR/SENSORY: Grimaces and withdraws to pain in all 4 extremities. More readily moves his right side. REFLEXES: 2+ throughout. Toes are downgoing. COORDINATION/GAIT: deferred DIAGNOSTIC TESTING: LABORATORY: 12/28/18: WBC 11.0 hemoglobin 12.7 platelet 282 ABG pCO2 36 pH 7.48 sodium 138 potassium 3.8 chloride 102 bicarb 26 BUN 37 creatinine 1.33 glucose 156 AST 44 ALT 62 alk phos ammonia 25 troponin 0 TSH 1.67 12/29/18: WBC 9.1 Hgb 12.3 Platelet 238 Na 142 K 3.7 Cl 104 CO2 27 BUN 39 Cr 1.27 glucose 134 urinalysis large leukesterase Vitamin B12 531, RPR non-reactive IMAGING: MRI brain w/o contrast 12/29/18: Multiple small areas of hyperintensity within cortical, subcortical, deep tissue including cerebellum and cerebral hemispheres THEODORE 12/29/18: A 1cm mobile echodense structure attached to the posterior mitral leaflet on the atrial surface, diagnosis of vegetation EEG 12/28/18: CT Head w/o contrast 12/28/18: Cerebral atrophy. No acute intracranial abnormality. No change. ASSESSMENT: 78 year-old man with PMHx of HTN, HLD, BPH, presenting to [facility] for altered mental status. Patient with recent hospitalization for UTI after patient had the TURP procedure. Patient had improved clinically, was at rehab, and declined again. At this time, unclear etiology of patient's AMS. Patient was able to say his name. Cannot rule out subclinic seizure as etiology. CT Head also showing possible hypodense lesion in L reinier. Patient also found with blatantly positive urinalysis for UTI and bacteremia. THEODORE showing vegetation and MRI brain showing multiple areas of stroke, likely from infective endocarditis, which can cause ischemic stroke along with mycotic aneurysm. Treatment in this case is antibiotics. RECOMMENDATIONS: 1. Infection management per primary team 2. EEG obtained this morning. Will follow-up final result. 3. If patient with any change in mental status, patient needs stat CT Head 4. Neurology will sign off at this time. Please call with additional questions or concerns.
[2018-12-29] MEDS: SODIUM CHLORIDE 0.9% 1,000 ML IV SCH (20:35)
--- NOTE | 2018-12-29 23:28 | EEG ---
ELECTROENCEPHALOGRAM REPORT DATE OF PROCEDURE: 12/29/2018 ELECTROENCEPHALOGRAM (EEG) REPORT: TECHNIQUE: A routine 18-channel EEG was performed with video using the 10/20 international electrode placement system. HISTORY: Third-degree heart block, altered mental status. Patient was lethargic. CURRENT MEDICATIONS: Vancomycin, Synthroid, Lovenox, dopamine, ceftriaxone. STUDY DURATION: 25 minutes. FINDINGS: BACKGROUND: The background activity consisted of unsustained 7 to 8 Hz rhythmic waveforms symmetrically distributed through both posterior quadrants. ACTIVATION: Hyperventilation: Not performed. Photic stimulation: No driving seen. Sleep: Drowsy. ABNORMALITIES: Intermittent diffuse 5 to 7 Hz polymorphic theta range slowing was seen. IMPRESSION: Mildly abnormal EEG. The intermittent diffuse polymorphic theta range slowing mentioned above is not epileptiform in nature. In combination with the slow background, these findings indicate mild diffuse cerebral dysfunction. These findings may also be in part due to medication effect. No seizures were recorded. No epileptiform activity was present. MMODL / IJN: [id number] /
[2018-12-30 06:01] LABS: Basophils % (A) 0 %; Eosinophils # (A) 0.2 k/uL (0-0.7); Eosinophils % (A) 2 %; HCT 34.1 % (39.0-53.0); HGB 11.1 gm/dL (13.0-17.5); Hypochromasia Slight; Lymphocytes # (A) 0.8 k/uL (1.0-4.8); Lymphocytes % (A) 11 %; MCH 28.5 pg (25.0-35.0); MCHC 32.5 g/dL (31.0-37.0); MCV 87.7 fL (80.0-100.0); Mean Platelet Volume 6.4; Monocytes # (A) 0.4 k/uL (0-1.0); Monocytes % (A) 5 %; Neutrophils % (A) 78 %; Platelet Count 227 k/uL (150-450); Poikilocytosis Slight; RBC 3.89 m/uL (4.30-5.90); RDW 14.7 % (11.5-15.5); WBC 7.6 k/uL (3.8-10.6)
[2018-12-30 06:18] LABS: Calcium 8.7 mg/dL (8.4-10.2); Potassium 3.6 mmol/L (3.5-5.1)
[2018-12-30] MEDS ORDERED: Potassium Replacement Protocol 1 EACH MISC MISCELLANE PRN (06:34)
--- NOTE | 2018-12-30 06:44 | P.CONS ---
History of Present Illness - Reason for Consult Consult date: 12/29/18 Mitral valve endocarditis Requesting physician: Isrrael Galeano - Chief Complaint Weakness less responsiveness x 2 days - History of Present Illness Patient is a 78-year-old male who was recently admitted to this facility with fever rigors and chills this patient was recently did have TURP procedure for urinary outflow obstruction the patient did have a positive UA on that admission and on 12/19/2018 patient has only one positive blood culture with Streptococcus out of the 2 blood culture that was drawn on that day subsequently the patient did have a negative blood culture on 12/20/2018 and 12/21/2018, the patient also have CT of abdominal pelvis did not show any abscess at the prostatic bed and the patient did have echocardiogram done on 12/20/2018 that did not show any vegetation, patient was treated with IV Rocephin 2 g daily and did have significant improvement with resolution of his symptoms subsequently the patient was transferred to [facility] inpatient rehab it was suggested to continue the patient on IV Rocephin that facility patient to subsequently was switched over to Cefdinar 300 mg twice a day while at the rehab patient was doing well for 3 days at the rehab facility however on 12/26/2018 the patient started not feeling well becomes weak and lethargic was noticed to have a significant bradycardia arrhythmia and was admitted to the regular floor at that facility the patient remains to be afebrile with a normal white count on 12/27/2018 I saw the patient at that facility antibiotic was switched over to Rocephin 2 g daily blood culture were drawn and a THEODORE was suggested patient subsequently was transferred to [facility] on 12/28/2018 to be evaluated by neurology services, vancomycin was added to Rocephin 2 g daily THEODORE was recommended which was completed this morning and it shows mitral valve vegetation, patient is currently in the ICU remains to be lethargic but the response to his name and open his eyes currently not on any pressor support artery remains to below 40s to upper 30s no nausea no vomiting or any diarrhea reported Review of Systems Positive points has been mentioned in HPI complete review could not be obtained because of his underlying mental status Past Medical History Past Medical History: Atrial Fibrillation, Hyperlipidemia, Hypertension, Prostate Disorder, Thyroid Disorder History of Any Multi-Drug Resistant Organisms: None Reported Past Surgical History: Prostate Surgery Additional Past Surgical History / Comment(s): COLONOSCOPY. BILAT CATARACTS. TURP procedure Past Anesthesia/Blood Transfusion Reactions: No Reported Reaction Past Psychological History: No Psychological Hx Reported Smoking Status: Former smoker Past Alcohol Use History: None Reported Additional Past Alcohol Use History / Comment(s): QUIT SMOKING 1972 Past Drug Use History: None Reported - Past Family History Mother Family Medical History: No Reported History Medications and Allergies Home Medications Medication Instructions Recorded Confirmed Type Enalapril/Hydrochlorothiazide 1 tab PO DAILY 01/22/17 12/28/18 History [Enalapril-Hctz 10-25 mg Tablet] Simvastatin [Zocor] 20 mg PO HS 01/22/17 12/28/18 History Apixaban [Eliquis] 5 mg PO BID #60 tab 12/23/18 12/28/18 Rx Cefuroxime Axetil [Ceftin] 500 mg PO BID #22 tab 12/23/18 12/28/18 Rx Atenolol [Tenormin] 25 mg PO DAILY 12/28/18 12/28/18 History Levothyroxine Sodium [Synthroid] 88 mcg PO DAILY 12/28/18 12/28/18 History Allergies Allergy/AdvReac Type Severity Reaction Status Date / Time Penicillins Allergy Rash/Hives Verified 12/28/18 18:59 Physical Exam Vitals: Vital Signs Temp Pulse Resp BP Pulse Ox 12/29/18 13:30 36 L 15 147/63 98 12/29/18 13:15 40 L 18 131/64 99 12/29/18 13:00 37 L 17 156/66 95 12/29/18 12:45 42 L 17 186/62 98 12/29/18 12:40 35 L 18 172/73 98 12/29/18 12:35 41 L 16 156/72 99 12/29/18 12:30 44 L 20 140/66 97 12/29/18 12:25 42 L 40 H 149/67 98 12/29/18 12:20 37 L 12 103/60 88 L 12/29/18 12:15 34 L 41 H 87/56 97 12/29/18 12:10 37 L 21 133/53 97 12/29/18 12:05 40 L 41 H 157/60 98 12/29/18 12:00 97.1 F L 39 L 21 149/64 94 L 12/29/18 11:55 38 L 15 156/66 99 12/29/18 11:50 38 L 16 153/72 96 12/29/18 11:45 37 L 40 H 153/72 97 12/29/18 11:40 35 L 16 153/72 97 12/29/18 11:35 38 L 10 L 153/72 95 12/29/18 11:30 37 L 7 L 149/64 98 12/29/18 11:25 37 L 7 L 149/64 95 12/29/18 11:20 39 L 17 149/64 96 12/29/18 11:15 39 L 23 149/64 95 12/29/18 11:10 38 L 25 H 149/64 96 12/29/18 11:05 36 L 18 149/64 99 12/29/18 11:00 38 L 24 151/67 96 12/29/18 10:55 38 L 16 151/67 96 12/29/18 10:50 39 L 21 151/67 94 L 12/29/18 10:45 40 L 15 151/67 96 12/29/18 10:40 37 L 16 151/67 95 12/29/18 10:35 39 L 16 151/67 99 12/29/18 10:30 39 L 19 153/65 97 12/29/18 10:00 38 L 13 155/61 94 L 12/29/18 09:30 33 L 11 L 158/87 93 L 12/29/18 09:00 38 L 8 L 156/80 95 12/29/18 08:30 40 L 22 181/70 94 L 12/29/18 08:00 97.6 F 39 L 27 H 156/65 93 L 12/29/18 07:30 41 L 13 154/72 98 12/29/18 07:00 40 L 16 136/60 96 12/29/18 06:30 38 L 16 145/70 93 L 12/29/18 06:00 39 L 14 145/70 90 L 12/29/18 05:30 29 L 12 161/66 98 12/29/18 05:00 40 L 28 H 161/66 98 12/29/18 04:30 40 L 4 L 143/67 96 12/29/18 04:00 98.3 F 41 L 22 140/71 97 12/29/18 03:30 38 L 22 139/62 96 12/29/18 03:00 40 L 16 148/67 96 12/29/18 02:30 39 L 22 177/71 91 L 12/29/18 02:00 44 L 26 H 176/59 94 L 12/29/18 01:30 43 L 8 L 166/63 93 L 12/29/18 01:00 43 L 27 H 160/65 97 12/29/18 00:36 42 L 16 95 12/29/18 00:30 43 L 14 150/57 96 12/29/18 00:00 98.6 F 44 L 21 157/62 91 L 12/28/18 23:30 43 L 12 140/68 96 12/28/18 23:00 43 L 14 132/65 97 12/28/18 22:30 38 L 10 L 130/74 99 12/28/18 22:00 40 L 24 131/70 94 L 12/28/18 21:30 34 L 22 141/68 95 12/28/18 21:24 97 12/28/18 21:00 43 L 18 125/62 92 L 12/28/18 20:30 37 L 24 143/64 90 L 12/28/18 20:00 99.1 F 43 L 21 116/67 93 L 12/28/18 19:30 39 L 21 148/61 92 L 12/28/18 19:00 43 L 23 125/65 94 L 12/28/18 18:30 40 L 23 146/64 95 12/28/18 18:00 42 L 8 L 148/66 97 12/28/18 17:30 44 L 10 L 129/70 95 12/28/18 17:00 40 L 22 119/70 96 12/28/18 16:30 37 L 33 H 144/58 97 12/28/18 16:00 98.2 F 36 L 16 112/72 96 12/28/18 15:30 46 L 25 H 92 L 12/28/18 15:00 33 L 19 152/70 90 L Intake and Output 12/28/18 12/29/18 12/29/18 22:59 06:59 14:59 Intake Total 1075 675 875 Output Total 520 680 670 Balance 555 -5 205 Intake: IV 525 675 875 Sodium Chloride 0.9% 1, 525 675 875 000 ml @ 75 mls/hr IV . [id number] [facility] Rx#:[id number] Intake, IV Titration 550 Amount Vancomycin 2,000 mg In 500 Sodium Chloride 0.9% 500 ml 500 ml @ 167 mls/hr IVPB Q24H [facility] Rx#: [id number] cefTRIAXone 2 gm In 50 Sodium Chloride 0.9% 50 ml @ 100 mls/hr IVPB Q24HR [facility] Rx#:[id number] Output: Urine 520 680 670 Uretheral (Pablo) 50 Other: Voiding Method Indwelling Catheter Indwelling Catheter Indwelling Catheter Weight 106.2 kg 99.1 kg GENERAL DESCRIPTION: An elderly male lying in bed, no distress. No tachypnea or accessory muscle of respiration use. HEENT: Shows Pallor , no scleral icterus. Oral mucous membrane is dry. No pharyngeal erythema or thrush NECK: Trachea central, no thyromegaly. LUNGS: Unlabored breathing. Decreased breath sound at the base. No wheeze or crackle. HEART: S1, S2, regular rate and rhythm. Systolic murmur ABDOMEN: Soft, no tenderness , guarding or rigidity, no organomegaly EXTREMITIES: No edema of feet. SKIN: No rash, no masses palpable. NEUROLOGICAL: The patient is lethargic though arousable , further neuro exam could not be completed Results CBC & Chem 7: 12/30/18 05:37 12/30/18 05:37 Labs: Abnormal Lab Results - Last 24 Hours (Table) 12/28/18 12/28/18 12/28/18 Range/Units 14:54 16:06 16:58 WBC 11.0 H (3.8-10.6) k/uL RBC (4.30-5.90) m/uL Hgb 12.7 L (13.0-17.5) gm/dL Hct 37.2 L (39.0-53.0) % Neutrophils # 9.5 H (1.3-7.7) k/uL Lymphocytes # 0.7 L (1.0-4.8) k/uL ABG pH 7.48 H (7.35-7.45) ABG pO2 (83-108) mmHg ABG HCO3 27 H (21-25) mmol/L ABG Total CO2 28 H (19-24) mmol/L ABG O2 Saturation 97.5 H (94-97) % BUN (9-20) mg/dL Creatinine (0.66-1.25) mg/dL Glucose (74-99) mg/dL POC Glucose (mg/dL) 154 H (75-99) mg/dL Troponin I (0.000-0.034) ng/mL Urine Protein (Negative) Urine Blood (Negative) Ur Leukocyte Esterase (Negative) Urine RBC (0-5) /hpf Urine WBC (0-5) /hpf Urine WBC Clumps (None) /hpf Urine Mucus (None) /hpf 12/28/18 12/28/18 12/28/18 Range/Units 16:58 16:58 23:48 WBC (3.8-10.6) k/uL RBC (4.30-5.90) m/uL Hgb (13.0-17.5) gm/dL Hct (39.0-53.0) % Neutrophils # (1.3-7.7) k/uL Lymphocytes # (1.0-4.8) k/uL ABG pH (7.35-7.45) ABG pO2 (83-108) mmHg ABG HCO3 (21-25) mmol/L ABG Total CO2 (19-24) mmol/L ABG O2 Saturation (94-97) % BUN 37 H (9-20) mg/dL Creatinine 1.33 H (0.66-1.25) mg/dL Glucose 156 H (74-99) mg/dL POC Glucose (mg/dL) (75-99) mg/dL Troponin I 1.140 H* 1.260 H* (0.000-0.034) ng/mL Urine Protein (Negative) Urine Blood (Negative) Ur Leukocyte Esterase (Negative) Urine RBC (0-5) /hpf Urine WBC (0-5) /hpf Urine WBC Clumps (None) /hpf Urine Mucus (None) /hpf 12/29/18 12/29/18 12/29/18 Range/Units 00:50 05:31 05:41 WBC (3.8-10.6) k/uL RBC (4.30-5.90) m/uL Hgb (13.0-17.5) gm/dL Hct (39.0-53.0) % Neutrophils # (1.3-7.7) k/uL Lymphocytes # (1.0-4.8) k/uL ABG pH (7.35-7.45) ABG pO2 (83-108) mmHg ABG HCO3 (21-25) mmol/L ABG Total CO2 (19-24) mmol/L ABG O2 Saturation (94-97) % BUN 39 H (9-20) mg/dL Creatinine 1.27 H (0.66-1.25) mg/dL Glucose 134 H (74-99) mg/dL POC Glucose (mg/dL) (75-99) mg/dL Troponin I 1.120 H* (0.000-0.034) ng/mL Urine Protein 1+ H (Negative) Urine Blood Moderate H (Negative) Ur Leukocyte Esterase Large H (Negative) Urine RBC 31 H (0-5) /hpf Urine WBC 82 H (0-5) /hpf Urine WBC Clumps Few H (None) /hpf Urine Mucus Rare H (None) /hpf 12/29/18 12/29/18 Range/Units 05:45 09:04 WBC (3.8-10.6) k/uL RBC 4.25 L (4.30-5.90) m/uL Hgb 12.3 L (13.0-17.5) gm/dL Hct 36.5 L (39.0-53.0) % Neutrophils # (1.3-7.7) k/uL Lymphocytes # 0.8 L (1.0-4.8) k/uL ABG pH 7.46 H (7.35-7.45) ABG pO2 80 L (83-108) mmHg ABG HCO3 (21-25) mmol/L ABG Total CO2 26 H (19-24) mmol/L ABG O2 Saturation (94-97) % BUN (9-20) mg/dL Creatinine (0.66-1.25) mg/dL Glucose (74-99) mg/dL POC Glucose (mg/dL) (75-99) mg/dL Troponin I (0.000-0.034) ng/mL Urine Protein (Negative) Urine Blood (Negative) Ur Leukocyte Esterase (Negative) Urine RBC (0-5) /hpf Urine WBC (0-5) /hpf Urine WBC Clumps (None) /hpf Urine Mucus (None) /hpf Microbiology - Last 24 Hours (Table) 12/29/18 00:50 Urine Culture - Preliminary Urine,Clean Catch Assessment and Plan Assessment: 1-patient with mitral valve endocarditis, more likely related to Streptococcus which he grew in the blood culture on 12/19/2018 only one positive blood culture was subsequently negative blood cultures on 12/20/2018 as well as 12/21/2018 and echocardiogram did not show any vegetation on 12/20/2018, patient now with high degree AV block with concern for possible perivalvular extension of this infection AND abnormality of the heart rhythm and with the current mental status changes possibly related to bradyarrhythmia however septic emboli needs to be ruled out (1) Endocarditis of mitral valve Current Visit: Yes Status: Acute Code(s): I05.8 - OTHER RHEUMATIC MITRAL VA LVE DISEASES SNOMED Code(s): 17374534 (2) Bacteremia due to Streptococcus Current Visit: No Status: Acute Code(s): R78.81 - BACTEREMIA; B95.5 - UNSP STREPTOCOCCUS THE CAUSE OF DISEASES [facility]SD [facility] SNOMED Code(s): 075328048764 Plan: 1-Rocephin 2 g IV piggyback daily because of his penicillin ALLERGY and will add gentamicin while watching his kidney function closely and discontinue the vancomycin 2-daily monitoring of his BMP and will check a CRP and a sed rate 3-We will follow on clinical condition and cultures to further adjust medication if needed Thank you for this consultation will follow this patient with you Family at the bedside questions concerned were answered in Layman terms Time with Patient: Greater than 30
[2018-12-30] MEDS: POTASSIUM CHLORIDE 10 MEQ in WATER FOR INJECTION 1 100ML.BAG IVPB SCH ×2 (07:00→08:14)
[2018-12-30] MEDS: ENOXAPARIN 40 MG/0.4 ML SYRINGE SQ SCH (08:14)
[2018-12-30] MEDS: SODIUM CHLORIDE 0.9% 1,000 ML IV SCH (08:14)
--- NOTE | 2018-12-30 10:45 | P.PN ---
Subjective Progress Note Date: 12/30/18 Principal diagnosis: Infective endocarditis with group b strept Patient was examined at the bedside in the ICU. He is resting in bed and appears comfortable. He is lethargic and obtunded and difficult to arouse with verbal and tactile stimulation. He is able to open his eyes and recognizes his daughter. Moves all extremities, but does not follow commands. Patient on 2L NC, Hammad-Carrillo respirations noted. Lungs clear. Patient with bradycardia with heart rate in the 30-40's and currently on a Dopamine infusion. Objective - Vital Signs Vital signs: Vital Signs Temp 97.7 F 12/30/18 08:00 Pulse 40 L 12/30/18 09:00 Resp 14 12/30/18 09:00 BP 166/61 12/30/18 09:00 Pulse Ox 99 12/30/18 09:00 Intake & Output 12/29/18 12/30/18 12/30/18 18:59 06:59 18:59 Intake Total 8483.463 2854.762 200 Output Total 760 970 250 Balance 701.399 104.762 -50 Weight 100.8 kg Intake: IV 1250 900 200 Sodium Chloride 0.9% 1, 1250 900 200 000 ml @ 75 mls/hr IV . [id number] [facility] Rx#:[id number] Intake, IV Titration 211.399 174.762 Amount DOPamine DRIP 800 mg In 211.399 72.762 Water For Injection 1 250ml.bag @ 5 MCG/KG/MIN 9.956 mls/hr IV .Q24H [facility] Rx#:[id number] Gentamicin 100 mg In 102 Sodium Chloride 0.9% 100 ml @ 102.5 mls/hr IVPB Q12HR@0000,1200 [facility] Rx#: [id number] Output: Urine 760 970 250 Other: Voiding Method Indwelling Catheter Indwelling Catheter Indwelling Catheter - Constitutional Constitutional Comment(s): Obtunded and lethargic. Arouses with rigorous stimulation and is able to open his eyes and recognize his daughter. Speech slurred. Moves all extremities, but does not follow commands. General appearance: Present: obese - Respiratory Details: Lungs clear to auscultation, diminished to bases bilaterally. No wheezes, rhonchi, or crackles appreciated. Hammad-Stoke respirations noted. Patient on 2L NC SPO2 99%. - Cardiovascular Details: Bradycardic rhythm. S1, S2, present. Positive for grade 2 systolic murmur. - Gastrointestinal Gastrointestinal Comment(s): Abdomen obese, soft, non-tender, and non-distended. Active bowel sounds x 4 quadrants. - Genitourinary Genitourinary Comment(s): Pablo catheter to dependent drainage for accurate I&O, draining yellow urine. - Integumentary Integumentary Comment(s): Skin warm and dry to touch. No clubbing or cyanosis present. - Neurologic Neurologic Comment(s): Obtunded and lethargic. Arouses with rigorous stimulation and is able to open his eyes and recognize his daughter. Speech slurred. Moves all extremities, but does not follow commands. - Musculoskeletal Musculoskeletal: Present: generalized weakness - Allied health notes Allied health notes reviewed: nursing - Labs CBC & Chem 7: 12/30/18 05:37 12/30/18 05:37 Labs: Abnormal Lab Results - Last 24 Hours (Table) 12/30/18 12/30/18 Range/Units 05:37 05:37 RBC 3.89 L (4.30-5.90) m/uL Hgb 11.1 L (13.0-17.5) gm/dL Hct 34.1 L (39.0-53.0) % Lymphocytes # 0.8 L (1.0-4.8) k/uL Chloride 109 H (98-107) mmol/L BUN 38 H (9-20) mg/dL Glucose 115 H (74-99) mg/dL Microbiology - Last 24 Hours (Table) 12/29/18 00:50 Urine Culture - Preliminary Urine,Clean Catch - Imaging and Cardiology Chest x-ray: report reviewed, image reviewed CT Scan - head: report reviewed, image reviewed MRI - abdomen: report reviewed MRI - head: report reviewed, image reviewed Assessment and Plan Assessment: 1 Infective endocarditis, recent blood culture positive for strep group B and mitral valve vegetation on his THEODORE from 12/29/18. 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 CT of the brain 12/28/18 negative. 12/29/18 Brain MRI findings compatible with multiple areas of ischemia. 4 Hammad-Carrillo respirations 5 Benign prostatic hypertrophy status post TURP 6 Hyperlipidemia 7 Hypertension 8 Hypothyroidism 9 Troponin leak secondary to endocarditis Plan: 1. Patient high risk for surgical intervention, may need surgery in the future. Allow patient to recover from stroke and then reassess appropriateness of surgery. 2. Continue antibiotics per infectious disease. 3. Medical management for other comorbidities per primary care service. 4. Will continue to see as an on needed basis. Time with Patient: Greater than 30
[2018-12-30] MEDS: GENTAMICIN 100 MG in SODIUM CHLORIDE 0.9% 100 ML IVPB SCH (12:28)
--- NOTE | 2018-12-30 12:50 | PN ---
PROGRESS NOTE This 78-year-old gentleman who was admitted to hospital with CVA and infective endocarditis with vegetation involving mitral valve. He has had bradycardia with AV dissociation and stable narrow complex junctional escape rhythm. His heart rates have remained stable around 35 to 40 beats per minute. He has not had any pauses and the plan at this stage is to continue with the IV antibiotics, continue him in ICU and continue the dopamine. If he develops any pauses, we will consider placing a temporary pacemaker. On exam, heart rate is 36 beats per minute. Blood pressure is 148/67. Respiratory rate is 18. Chest exam reveals diminished air entry at the bases. Heart exam reveals first and second heart sounds. Systolic murmur at the apex. Abdomen is soft. Examination of extremities reveal 1+ edema. Peripheral pulses are felt. LABS: Labs show white cell count of 7.6, hemoglobin is 11, potassium is 3.6, creatinine is 1. ASSESSMENT: 1. Infective endocarditis involving mitral valve. 2. Asymptomatic bradyarrhythmia. 3. Cerebrovascular accident. 4. Non ST-segment elevation myocardial infarction, probably secondary to embolism of the vegetation. PLAN: Will continue with supportive care and continue with the dopamine. MMODL / IJN: [id number] /
--- NOTE | 2018-12-30 15:01 | P.PN ---
Subjective Progress Note Date: 12/30/18 On today's evaluation, the patient is looking more awake compared to yesterday. Is able to open up his eyes and follows simple commands and communicate with family members. As mentioned earlier the patient has infective endocarditis. The patient is currently on a combination of Rocephin and gentamicin. The patient also developed multiple small areas of hyperintensity within the cortical and subcortical deep tissue and also in the cerebellum and the cerebral hemispheres. These are infarct versus septic emboli. No seizure activity. He is unable to swallow. He remains in third degree AV block. He remains on a dopamine infusion which is running at 4 g per KG per minute. Heart rate is in the mid 30s. He is able to maintain a mean arterial pressure above 65. Adequate urine output. White cell count is at 7.6. Hemoglobin is 11.1. There are no positive blood cultures for the time being. Objective - Vital Signs Vital signs: Vital Signs Temp 98.2 F 12/30/18 12:00 Pulse 41 L 12/30/18 14:15 Resp 7 L 12/30/18 14:15 BP 139/53 12/30/18 14:15 Pulse Ox 98 12/30/18 14:15 Intake & Output 12/29/18 12/30/18 12/30/18 18:59 06:59 18:59 Intake Total 0896.524 1653.762 973.29 Output Total 760 970 640 Balance 701.399 104.762 333.29 Weight 100.8 kg 100.8 kg Intake: IV 1250 900 925 Gentamicin 100 mg In 100 Sodium Chloride 0.9% 100 ml @ 102.5 mls/hr IVPB Q12HR@0000,1200 [facility] Rx#: [id number] Potassium Chloride 10 meq 200 In Water For Injection 1 100ml.bag @ 100 mls/hr IVPB Q1H [facility] Rx#: [id number] Sodium Chloride 0.9% 1, 1250 900 575 000 ml @ 75 mls/hr IV . [id number] [facility] Rx#:[id number] cefTRIAXone 2 gm In 50 Sodium Chloride 0.9% 50 ml @ 100 mls/hr IVPB Q24HR [facility] Rx#:[id number] Intake, IV Titration 211.399 174.762 48.29 Amount DOPamine DRIP 800 mg In 211.399 72.762 48.29 Water For Injection 1 250ml.bag @ 5 MCG/KG/MIN 9.956 mls/hr IV .Q24H [facility] Rx#:[id number] Gentamicin 100 mg In 102 Sodium Chloride 0.9% 100 ml @ 102.5 mls/hr IVPB Q12HR@0000,1200 [facility] Rx#: [id number] Output: Urine 760 970 640 Other: Voiding Method Indwelling Catheter Indwelling Catheter Indwelling Catheter - Exam Gen. appearance the patient has quite lethargic and obtunded. He opens his eyes when his called his name and whenever is given to painful stimulation. He is able to follow some simple commands and is able to follow simple directions and answers simple questions. No signs of any respiratory distress. Upon further monitoring, while sleeping, the patient is not having any Hammad-Carrillo respiration on today's evaluation. He seems to be overall a bit more awake and alert compared to yesterday. His level of consciousness seems to be more improved compared to yesterday. Head exam was generally normal. There was no scleral icterus or corneal arcus. Mucous membranes were moist. Neck was supple and without jugular venous distension, thyromegaly, or carotid bruits. Carotids were easily palpable bilaterally. There was no adenopathy. Neurologic exam in general is nonfocal. Pupils are equal and reactive to light and they're symmetrical. No clonus. No Babinski. Able to move all 4 extremities without any limitation and the patient is withdrawing to painful stimulation. No facial asymmetry. Sensorimotor functions cannot be accurately assessed as the patient is not cooperating with that. Reflexes are symmetrical +2. Gait is not assessed. Lungs were clear to auscultation and percussion, and with normal diaphragmatic excursion. No wheezes or rales were noted. Heart sounds are bradycardic consistent with third-degree AV block. A faint murmur can be appreciated lung left lateral sternal border. Abdominal exam revealed normal bowel sounds. The abdomen was soft, non-tender, and without masses, organomegaly, or appreciable enlargement of the abdominal aorta. Examination of the extremities revealed easily palpable radial, femoral and pedal pulses. There was no cyanosis, clubbing or edema. Examination of the skin revealed no evidence of significant rashes, suspicious appearing nevi or other concerning lesions. Psychiatric evaluation cannot be done. - Labs CBC & Chem 7: 12/30/18 05:37 12/30/18 05:37 Labs: Abnormal Lab Results - Last 24 Hours (Table) 12/30/18 12/30/18 Range/Units 05:37 05:37 RBC 3.89 L (4.30-5.90) m/uL Hgb 11.1 L (13.0-17.5) gm/dL Hct 34.1 L (39.0-53.0) % Lymphocytes # 0.8 L (1.0-4.8) k/uL Chloride 109 H (98-107) mmol/L BUN 38 H (9-20) mg/dL Glucose 115 H (74-99) mg/dL Microbiology - Last 24 Hours (Table) 12/29/18 00:50 Urine Culture - Final Urine,Clean Catch Assessment and Plan Plan: 1 infective endocarditis possibly related to recent activity noted the patient encountered post TURP. The patient was infected with strep group B and the patient was hospitalized and received inpatient antibiotic treatment and he was discharged home on oral antibiotic. The patient underwent a THEODORE on 12/29/2018 the patient was found to have a 1 cm mobile echodense structure attached to the posterior mitral leaflet on that she has surface consistent with vegetation. An abscess was not seen. 2 third-degree AV block, likely complication of infective endocarditis, rule out cardiac abscess. Note that this will discuss further with cardiology. They have not found the need for a chest to his pacemaker insertion for the time being. 3 altered mental status. The patient was found to have multiple areas of stroke/septic emboli and the cortical and subcortical area and the cerebellum. This is possibly related to septic embolization. 4 Hammad-Carrillo breathing secondary to above, recovered 5 benign prostatic hypertrophy post TURP 6 hyperlipidemia 7 hypertension 8 hypothyroidism 9 troponin leak secondary to endocarditis Plan Monitor mental status. THEODORE was noted. MRI of the brain was noted. The patient be kept on same antibiotic coverage. We'll insert a Dobbhoff catheter and without the patient on vital high protein. Continue supportive care. No surgical intervention based on cardiothoracic surgery's evaluation. Aspiration precautions. Supportive care. Keep the patient ICU for today.
--- NOTE | 2018-12-30 16:29 | XR ---
EXAMINATION TYPE: XR abdomen 1V DATE OF EXAM: 12/30/2018 4:25 PM CLINICAL HISTORY: NG tube placement. TECHNIQUE: Single portable upright KUB image of the abdomen is obtained. COMPARISON: None. FINDINGS: A nasogastric tube projects just below diaphragm. Gas prominent small bowel loops left uppe r and midabdomen are present. Multilevel spurring in the spine is seen. IMPRESSION: As above.
--- NOTE | 2018-12-30 17:20 | PN ---
PROGRESS NOTE DATE OF SERVICE: 12/30/2018 REASON FOR FOLLOWUP: Mitral valve endocarditis. INTERVAL HISTORY: The patient is currently afebrile. The patient is breathing comfortably. The patient is slightly more awake and alert today. He did respond to his name and wave his hand. No nausea, no vomiting, no abdominal pain or any diarrhea. PHYSICAL EXAMINATION: Blood pressure 139/53 with a pulse of 41, temperature 98. He is 98% on room air. General description is an elderly male lying in bed in no distress. RESPIRATORY SYSTEM: Unlabored breathing. Clear to auscultation anteriorly. HEART: S1, S2. Regular rate and rhythm. ABDOMEN: Soft. No tenderness. EXTREMITIES: No edema of the feet. LABS: Hemoglobin is 11.1, white count 7.6, BUN of 38, creatinine 1.02. Blood culture remains negative here. DIAGNOSTIC IMPRESSION AND PLAN: Patient with mitral valve endocarditis in this patient currently covered with Rocephin and gentamicin. Patient seems to have shown some clinical improvement compared to yesterday. Continue with Rocephin and gentamicin. Monitor his kidney function closely and clinical course. Plan of care was discussed in detail with the family at the bedside as well as his evp. Continue with supportive care. MMODL / IJN: [id number] /
[2018-12-30] MEDS: LEVOTHYROXINE IVP 100 MCG/5 ML VIAL IV SCH (20:19)
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
[2018-12-30] MEDS ORDERED: GENTAMICIN TROUGH DUE 1 EACH MISC MISCELLANE ONE (23:30)
--- NOTE | 2018-12-31 00:18 | XR ---
EXAMINATION TYPE: XR chest 1V portable DATE OF EXAM: 12/31/2018 COMPARISON: 12/28/2018 HISTORY: NG tube placement TECHNIQUE: Single frontal view of the chest is obtained. FINDINGS: Heart is normal. Lungs are clear of consolidation. There is probably a mild infiltrate in the lateral aspect right upper lobe. Thoracic aorta is atheromatous. There is no heart failure. NG tube is present. IMPRESSION: Possible new right upper lobe infiltrate compared to last exam. No heart failure seen. N asogastric tube is in the distal stomach.
[2018-12-31] MEDS: GENTAMICIN 100 MG in SODIUM CHLORIDE 0.9% 100 ML IVPB SCH ×2 (00:24→12:56)
[2018-12-31] MEDS ORDERED: GENTAMICIN PEAK DUE 1 EACH MISC MISCELLANE ONE (02:00)
[2018-12-31 05:18] LABS: Basophils % (A) 1 %; Eosinophils # (A) 0.2 k/uL (0-0.7); Eosinophils % (A) 2 %; HGB 11.1 gm/dL (13.0-17.5); Lymphocytes # (A) 0.8 k/uL (1.0-4.8); Lymphocytes % (A) 10 %; MCH 28.8 pg (25.0-35.0); MCHC 33.7 g/dL (31.0-37.0); MCV 85.3 fL (80.0-100.0); Mean Platelet Volume 7.5; Monocytes # (A) 0.4 k/uL (0-1.0); Monocytes % (A) 5 %; Neutrophils # (A) 6.8 k/uL (1.3-7.7); Neutrophils % (A) 81 %; Platelet Count 263 k/uL (150-450); Poikilocytosis Slight; RBC 3.87 m/uL (4.30-5.90); RDW 14.4 % (11.5-15.5); WBC 8.4 k/uL (3.8-10.6)
[2018-12-31 05:53] LABS: African American GFR (CKD) >90 (>60 ml/min/1.73 sqM); Anion Gap 4 mmol/L; Blood Urea Nitrogen 34 mg/dL (9-20); Calcium 8.9 mg/dL (8.4-10.2); Carbon Dioxide 25 mmol/L (22-30); Chloride 111 mmol/L (98-107); Glucose 140 mg/dL (74-99); Non-African American GFR(CKD) 84 (>60 ml/min/1.73 sqM); Sodium 140 mmol/L (137-145)
[2018-12-31] MEDS: DOPamine DRIP 800 MG in WATER FOR INJECTION 1 250ML.BAG IV SCH ×2 (06:28→08:55)
[2018-12-31] MEDS: SODIUM CHLORIDE 0.9% 1,000 ML IV SCH ×2 (06:30→08:56)
--- NOTE | 2018-12-31 06:30 | XR ---
EXAMINATION TYPE: XR chest 1V portable DATE OF EXAM: 12/31/2018 COMPARISON: Today HISTORY: Check tube placement TECHNIQUE: Single frontal view of the chest is obtained. FINDINGS: There is nasogastric tube with the tip probably in the distal stomach. There is some coars ening of the lung markings. There is no pulmonary consolidation. There is no heart failure. Heart siz e is normal. There are chest leads. IMPRESSION: NG tube is probably in the distal stomach. No pulmonary consolidation or heart failure.
[2018-12-31] MEDS: ENOXAPARIN 40 MG/0.4 ML SYRINGE SQ SCH (08:58)
[2018-12-31 10:27] VITALS: BMI 32.2
--- NOTE | 2018-12-31 12:38 | PN ---
PROGRESS NOTE Ankit is a 78-year-old gentleman that is admitted to hospital with brainstem CVA, infective endocarditis with vegetation of the mitral valve and complete heart block with AV dissociation and stable junctional escape rhythm. He still remains confused, but more alert than before. Remains in a stable rhythm and blood pressure is normal. PHYSICAL EXAMINATION: On exam, heart rate is 36 to 40 beats per minute. Blood pressure is 133/63. Respiratory rate is 18. Chest exam reveals diminished air entry bilaterally. Heart exam reveals first and second heart sounds. No gallop. Exam of the extremities reveals mild edema. Peripheral pulses are felt. LABS: Labs show a hemoglobin of 11.1, platelet count is 263. Potassium is 4. Creatinine is 0.8. ASSESSMENT: 1. Complete heart block with stable junctional escape rhythm. 2. Infective endocarditis involving mitral valve. 3. Cerebrovascular accident secondary to thromboembolic lesion, probably from the vegetation. Continue supportive care. We can taper and stop the dopamine. Prognosis remains guarded. MMODL / IJN: [id number] /
--- NOTE | 2018-12-31 13:39 | PN ---
PROGRESS NOTE DATE OF SERVICE: 12/31/2018 REASON FOR FOLLOWUP: Mitral valve endocarditis. INTERVAL HISTORY: The patient is currently afebrile. Patient is hemodynamically stable. The patient is getting more awake and alert. He did have NG for nutrition. No nausea, no vomiting. No abdominal pain or any diarrhea reported. PHYSICAL EXAMINATION: Blood pressure 144/63, pulse of 35, temperature of 98. He is 95% on room air. General description is an elderly male up in the bed in no distress. RESPIRATORY SYSTEM: Unlabored breathing. Decreased breath sounds at the bases. No wheeze. HEART: S1, S2. systolic murmur. ABDOMEN: Soft, no tenderness. EXTREMITIES: No edema of the feet. LABS: Hemoglobin is 11.1 with white count 8.4, BUN of 34, creatinine 0.83. has been therapeutic. DIAGNOSTIC IMPRESSION AND PLAN: Patient with mitral valve endocarditis with possible septic emboli. Previous culture positive for Streptococcus agalactiae pathogen. Currently on Rocephin and gentamicin because of his PENICILLIN allergy. Continue monitor his kidney function very closely. Family at the bedside. Their questions were answered. MMODL / IJN: [id number] /
--- NOTE | 2018-12-31 14:18 | P.PN ---
Subjective Progress Note Date: 12/31/18 On 12/31/2018, I'm seeing this patient for a follow-up. He is awake. He is following simple commands. Unable to swallow. NG tube was inserted. The patient was started enteral feeding for nutritional support. Hemodynamically still in third degree AV block with episodes of second-degree AV block and j unctional rhythm. He is on dopamine low-dose. Blood pressure is under good control. Patient as mentioned has been on a combination of Rocephin and gentamicin. Also developed several areas of hyperintensity within the cortical and subcortical deep tissue and in the cerebellum and cerebral hemispheres. These are consistent with either thrombotic or septic infarcts the second is more fevers. No seizure activity. No emesis. No abdominal distention. No other significant events overnight. The patient is resting comfortably in bed. Family is at the bedside. Objective - Vital Signs Vital signs: Vital Signs Temp 98.0 F 12/31/18 12:00 Pulse 35 L 12/31/18 13:00 Resp 25 H 12/31/18 13:00 BP 144/63 12/31/18 13:00 Pulse Ox 95 12/31/18 13:00 Intake & Output 12/30/18 12/31/18 12/31/18 18:59 06:59 18:59 Intake Total 1383.29 6653.257 8314.938 Output Total 900 1225 520 Balance 483.29 513.948 556.938 Weight 100.8 kg 101.8 kg 101.8 kg Intake: IV 1225 1000 725 Gentamicin 100 mg In 100 100 100 Sodium Chloride 0.9% 100 ml @ 102.5 mls/hr IVPB Q12HR@0000,1200 [facility] Rx#: [id number] Potassium Chloride 10 meq 200 In Water For Injection 1 100ml.bag @ 100 mls/hr IVPB Q1H [facility] Rx#: [id number] Sodium Chloride 0.9% 1, 875 900 525 000 ml @ 75 mls/hr IV . [id number] [facility] Rx#:[id number] cefTRIAXone 2 gm In 50 100 Sodium Chloride 0.9% 50 ml @ 100 mls/hr IVPB Q24HR [facility] Rx#:[id number] Intake, IV Titration 48.29 128.948 21.938 Amount DOPamine DRIP 800 mg In 48.29 128.948 21.938 Water For Injection 1 250ml.bag @ 5 MCG/KG/MIN 9.956 mls/hr IV .Q24H [facility] Rx#:[id number] Tube Feeding 110 550 330 Other 60 0 Output: Urine 900 1225 520 Other: Voiding Method Indwelling Catheter Indwelling Catheter - Exam Gen. appearance the patient has quite lethargic and obtunded. He opens his eyes when his called his name and whenever is given to painful stimulation. He is able to follow some simple commands and is able to follow simple directions and answers simple questions. No signs of any respiratory distress. Upon further monitoring, while sleeping, the patient is not having any Hammad-Carrillo respiration on today's evaluation. He seems to be overall a bit more awake and alert compared to yesterday. His level of consciousness seems to be more improved compared to yesterday. Head exam was generally normal. There was no scleral icterus or corneal arcus. Mucous membranes were moist. The patient has an NG tube in place and enteral feeding was initiated yesterday. Neck was supple and without jugular venous distension, thyromegaly, or carotid bruits. Carotids were easily palpable bilaterally. There was no adenopathy. Neurologic exam in general is nonfocal. Pupils are equal and reactive to light and they're symmetrical. No clonus. No Babinski. Able to move all 4 extremities without any limitation and the patient is withdrawing to painful stimulation. No facial asymmetry. Sensorimotor functions cannot be accurately assessed as the patient is not cooperating with that. Reflexes are symmetrical +2. Gait is not assessed. Lungs were clear to auscultation and percussion, and with normal diaphragmatic excursion. No wheezes or rales were noted. Heart sounds are bradycardic consistent with third-degree AV block. A faint murmur can be appreciated lung left lateral sternal border. Abdominal exam revealed normal bowel sounds. The abdomen was soft, non-tender, and without masses, organomegaly, or appreciable enlargement of the abdominal aorta. Examination of the extremities revealed easily palpable radial, femoral and pedal pulses. There was no cyanosis, clubbing or edema. Examination of the skin revealed no evidence of significant rashes, suspicious appearing nevi or other concerning lesions. Psychiatric evaluation cannot be done. - Labs CBC & Chem 7: 12/31/18 03:15 12/31/18 05:21 Labs: Abnormal Lab Results - Last 24 Hours (Table) 12/30/18 12/31/18 12/31/18 Range/Units 05:37 03:15 05:21 RBC 3.87 L (4.30-5.90) m/uL Hgb 11.1 L (13.0-17.5) gm/dL Hct 33.0 L (39.0-53.0) % Lymphocytes # 0.8 L (1.0-4.8) k/uL Chloride 111 H (98-107) mmol/L BUN 34 H (9-20) mg/dL Glucose 140 H (74-99) mg/dL Procalcitonin 0.13 H (0.02-0.09) ng/mL Microbiology - Last 24 Hours (Table) 12/29/18 00:50 Urine Culture - Final Urine,Clean Catch Assessment and Plan Plan: 1 infective endocarditis possibly related to recent activity noted the patient encountered post TURP. The patient was infected with strep group B and the patient was hospitalized and received inpatient antibiotic treatment and he was discharged home on oral antibiotic. The patient underwent a [place] on 12/29/2018 the patient was found to have a 1 cm mobile echodense structure attached to the posterior mitral leaflet on that she has surface consistent with vegetation. An abscess was not seen. The patient remains on a combination of Rocephin and gentamicin. 2 third-degree AV block which is alternating with a second-degree AV block and junctional rhythm, likely complication of infective endocarditis, rule out cardiac abscess. Note that this will discuss further with cardiology. They have not found the need for a chest to his pacemaker insertion for the time being. 3 altered mental status. The patient was found to have multiple areas of stroke/septic emboli and the cortical and subcortical area and the cerebellum. This is possibly related to septic embolization. Clinically somewhat improved compared to yesterday 4 Hammad-Carrillo breathing secondary to above, less frequent 5 benign prostatic hypertrophy post TURP 6 hyperlipidemia 7 hypertension 8 hypothyroidism 9 troponin leak secondary to endocarditis 10 generalized weakness and inability to swallow the patient has enteral feeding for nutritional support and a NG tube was then inserted. Plan Continue the supportive care. NG tube has been inserted and the patient will be started on enteral feeding for nutritional support. Continue Rocephin. Continue gentamicin. Lovenox for DVT prophylaxis. IV fluids. We'll follow. We'll also involve some physical therapy for passive range of motion.
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
[2018-12-31] MEDS ORDERED: MELATONIN 3 MG TABLET PO ONE (22:38)
[2019-01-01] MEDS: GENTAMICIN 100 MG in SODIUM CHLORIDE 0.9% 100 ML IVPB SCH ×2 (01:25→13:24)
[2019-01-01] MEDS: SODIUM CHLORIDE 0.9% 1,000 ML IV SCH ×2 (01:25→13:24)
[2019-01-01 06:15] LABS: Basophils % (A) 1 %; Eosinophils # (A) 0.2 k/uL (0-0.7); Eosinophils % (A) 2 %; HCT 34.2 % (39.0-53.0); HGB 11.3 gm/dL (13.0-17.5); Hypochromasia Slight; Lymphocytes # (A) 0.8 k/uL (1.0-4.8); Lymphocytes % (A) 10 %; MCH 28.9 pg (25.0-35.0); MCV 87.5 fL (80.0-100.0); Mean Platelet Volume 6.3; Monocytes # (A) 0.4 k/uL (0-1.0); Monocytes % (A) 5 %; Neutrophils # (A) 6.1 k/uL (1.3-7.7); Neutrophils % (A) 79 %; Platelet Count 259 k/uL (150-450); Poikilocytosis Slight; RBC 3.91 m/uL (4.30-5.90); RDW 14.5 % (11.5-15.5); WBC 7.7 k/uL (3.8-10.6)
[2019-01-01 06:28] LABS: Calcium 8.9 mg/dL (8.4-10.2); Potassium 3.7 mmol/L (3.5-5.1)
[2019-01-01] MEDS: POTASSIUM CHLORIDE 10 MEQ in WATER FOR INJECTION 1 100ML.BAG IVPB SCH ×2 (08:41→09:56)
[2019-01-01] MEDS: ENOXAPARIN 40 MG/0.4 ML SYRINGE SQ SCH (08:48)
--- NOTE | 2019-01-01 11:14 | P.PN ---
Subjective Progress Note Date: 01/01/19 On 01/01/2019 the patient is awake and more interactive compared to yesterday. NG tube was pulled out by the patient yesterday. Attempt was done toady inserted to however the patient and off having some nosebleeds and the procedure was aborted. As such the patient is back and pedal. I have discussed the need to reinsert the tube again. He is on low-dose dopamine. He remains in a high degree AV block. He remains on the same antibiotic coverage. No fever or chills. No focal neurological deficits. No respiratory distress. He has a good cough and a gag for now. Objective - Vital Signs Vital signs: Vital Signs Temp 98.1 F 01/01/19 08:00 Pulse 39 L 01/01/19 10:00 Resp 24 01/01/19 10:00 BP 145/61 01/01/19 10:00 Pulse Ox 96 01/01/19 10:00 Intake & Output 12/31/18 01/01/19 01/01/19 18:59 06:59 18:59 Intake Total 2659.431 9599 525 Output Total 825 655 295 Balance 882.235 3254 230 Weight 101.8 kg 103.6 kg Intake: IV 1100 900 525 Gentamicin 100 mg In 100 Sodium Chloride 0.9% 100 ml @ 102.5 mls/hr IVPB Q12HR@0000,1200 [facility] Rx#: [id number] Potassium Chloride 10 meq 200 In Water For Injection 1 100ml.bag @ 100 mls/hr IVPB Q1H [facility] Rx#: [id number] Sodium Chloride 0.9% 1, 900 900 225 000 ml @ 75 mls/hr IV . [id number] [facility] Rx#:[id number] cefTRIAXone 2 gm In 100 100 Sodium Chloride 0.9% 50 ml @ 100 mls/hr IVPB Q24HR [facility] Rx#:[id number] Intake, IV Titration 21.938 100 Amount DOPamine DRIP 800 mg In 21.938 Water For Injection 1 250ml.bag @ 5 MCG/KG/MIN 9.956 mls/hr IV .Q24H [facility] Rx#:[id number] Gentamicin 100 mg In 100 Sodium Chloride 0.9% 100 ml @ 102.5 mls/hr IVPB Q12HR@0000,1200 [facility] Rx#: [id number] Tube Feeding 385 825 Other 0 90 Output: Urine 825 655 295 Other: Voiding Method Indwelling Catheter Indwelling Catheter Indwelling Catheter - Exam Gen. appearance the patient has quite lethargic and obtunded. He opens his eyes when his called his name and whenever is given to painful stimulation. He is able to follow some simple commands and is able to follow simple directions and answers simple questions. No signs of any respiratory distress. Upon further monitoring, while sleeping, the patient is not having any Hammad-Carrillo respiration on today's evaluation. He seems to be overall a bit more awake and alert compared to yesterday. His level of consciousness seems to be more impr faviola compared to yesterday. Head exam was generally normal. There was no scleral icterus or corneal arcus. Mucous membranes were moist. The patient has an NG tube in place and enteral feeding was initiated yesterday. Neck was supple and without jugular venous distension, thyromegaly, or carotid bruits. Carotids were easily palpable bilaterally. There was no adenopathy. Neurologic exam in general is nonfocal. Pupils are equal and reactive to light and they're symmetrical. No clonus. No Babinski. Able to move all 4 extremities without any limitation and the patient is withdrawing to painful stimulation. No facial asymmetry. Sensorimotor functions cannot be accurately assessed as the patient is not cooperating with that. Reflexes are symmetrical +2. Gait is not assessed. Lungs were clear to auscultation and percussion, and with normal diaphragmatic excursion. No wheezes or rales were noted. Heart sounds are bradycardic consistent with third-degree AV block. A faint murmur can be appreciated lung left lateral sternal border. Abdominal exam revealed normal bowel sounds. The abdomen was soft, non-tender, and without masses, organomegaly, or appreciable enlargement of the abdominal aorta. Examination of the extremities revealed easily palpable radial, femoral and pedal pulses. There was no cyanosis, clubbing or edema. Examination of the skin revealed no evidence of significant rashes, suspicious appearing nevi or other concerning lesions. Psychiatric evaluation cannot be done. 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 The patient was infected with strep group B and the pa sharlene was hospitalized and received inpatient antibiotic treatment and he was discharged home on oral antibiotic. The patient underwent a THEODORE on 12/29/2018 the patient was found to have a 1 cm mobile echodense structure attached to the posterior mitral leaflet on that she has surface consistent with vegetation. An abscess was not seen. The patient remains on a combination of Rocephin and gentamicin. 2 third-degree AV block which is alternating with a second-degree AV block and junctional rhythm, likely complication of infective endocarditis, rule out cardiac abscess. Note that this will discuss further with cardiology. They have not found the need for a chest to his pacemaker insertion for the time being. 3 altered mental status. The patient was found to have multiple areas of stro ke/septic emboli and the cortical and subcortical area and the cerebellum. This is possibly related to septic embolization. Clinically somewhat improved compared to yesterday 4 Hammad-Carrillo breathing secondary to above, less frequent 5 benign prostatic hypertrophy post TURP 6 hyperlipidemia 7 hypertension 8 hypothyroidism 9 troponin leak secondary to endocarditis 10 generalized weakness and inability to swallow the patient has enteral feeding for nutritional support and a NG tube was then inserted. Plan Condition is the same as yesterday. I would say neurologically he is slightly more awake. NG tube the stability inserted. If he continues to pull out NG tube, and alternative needs to be discussed including the possibility of a PEG tube insertion. I would not utilize TPN patient based on the endocarditis. Continue the supportive care. We'll continue to follow. Long-term prognosis poor baseline above-mentioned comorbidities. There is been some neurologic progress over the past few days.
[2019-01-01] MEDS ORDERED: LIDOCAINE 2% GEL 30 ML TUBE TOPICAL ONE (12:00)
--- NOTE | 2019-01-01 12:29 | PN ---
PROGRESS NOTE DATE OF SERVICE: 01/01/2019 REASON FOR FOLLOWUP: Mitral valve endocarditis. INTERVAL HISTORY: The patient is currently afebrile. Patient is breathing comfortably. The patient is hemodynamically stable, not requiring any pressor support. The patient did pull out his NG. No nausea, vomiting or diarrhea reported by nursing staff. He did have a bowel movement though. PHYSICAL EXAMINATION: Blood pressure 126/60 with a pulse of 87, temperature 98. He is 95% on room air. General description is an elderly male lying in bed in no distress. Respiratory system: Unlabored breathing and is clear to auscultation anteriorly. Heart S1, S2. Regular rate and rhythm. Abdomen soft, no tenderness. LABS: Hemoglobin is 11.3, white count 7.7, BUN of 34, creatinine 1.01. DIAGNOSTIC IMPRESSION AND PLAN: Patient with mitral valve endocarditis for which the patient is currently covered with Rocephin and gentamicin because of PENICILLIN ALLERGY. His skin infection is currently stable. Continue patient on current antibiotics and monitor closely. Family at the bedside, their questions were answered. MMODL / IJN: [id number] /
[2019-01-01] MEDS: METHYL SALICYLATE/MENTHOL CREAM 5 OZ TOPICAL PRN ×2 (13:51→18:05)
--- NOTE | 2019-01-01 15:07 | P.PN ---
Subjective This is a pleasant 78 years old female with past medical history of atrial fibrillation, hyperlipidemia, hypertension, hypothyroidism. Patient admitted on the care of Dr. Galeano. Patient could not provide information so were taken from the records 2 weeks prior to that patient had undergone TURP by from urology. Patient was then admitted with confusion. Blood cultures were positive for Streptococcus agalactiae group B. Patient is put on IV ceftriaxone and blood cultures were negative prior to discharge. Patient was switched over to Ceftin. Also was found to have an atrial fibrillation. And patient is put on eliquis. Patient was subsequently was discharged to [facility] inpatient rehab under Dr. King. Patient is doing well there. And patient became short of breath. Found to be in pulmonary edema. Patient had been diagnosed with second degree heart block here at [facility] and had been seen by cardiology. Plan was not to do any further intervention. Subsequently from the inpatient rehab patient was moved to the medical floor. And then was put on dobutamine drip and motor the ICU. Was a concern about putting the transvenous pacemaker because of underlying infection. Patient subsequently became lethargic. And because no neurology service was available he was transferred here yesterday. Patient had no fever no white count. Neurology consult was done. Patient was moved to the ICU. Patient had ibis-stroke breathing. Patient is put on IV antibiotics. Patient today is seen in the ICU, he is sleepy and wakes up at times, but this is improved compared to yesterday were currently he soaks 12 warts before he go back to sleep. He pulled his NG tube today and is getting no feeding currently. There is no apparent weakness in arms or legs. Patient has been evaluated by neurologist, patient was found possible hypodense lesion in the left proximal on CT of the head, THEODORE showing vegetations and MRI brain showing multiple areas of stroke likely from infective endocarditis. Infectious disease on the case for bacterial endocarditis and septic emboli to the brain. Patient currently on ceftriaxone and gentamicin for penicillin ALLERGY Objective - Vital Signs Vital signs: Vital Signs Temp 98.6 F 01/01/19 12:00 Pulse 44 L 01/01/19 14:00 Resp 16 01/01/19 14:00 BP 156/62 01/01/19 14:00 Pulse Ox 97 01/01/19 14:00 Intake & Output 12/31/18 01/01/19 01/01/19 18:59 06:59 18:59 Intake Total 9114.295 6973 750 Output Total 825 655 425 Balance 642.400 4195 325 Weight 101.8 kg 103.6 kg Intake: IV 1100 900 750 Gentamicin 100 mg In 100 Sodium Chloride 0.9% 100 ml @ 102.5 mls/hr IVPB Q12HR@0000,1200 [facility] Rx#: [id number] Potassium Chloride 10 meq 200 In Water For Injection 1 100ml.bag @ 100 mls/hr IVPB Q1H [facility] Rx#: [id number] Sodium Chloride 0.9% 1, 900 900 450 000 ml @ 75 mls/hr IV . [id number] [facility] Rx#:[id number] cefTRIAXone 2 gm In 100 100 Sodium Chloride 0.9% 50 ml @ 100 mls/hr IVPB Q24HR [facility] Rx#:[id number] Intake, IV Titration 21.938 100 Amount DOPamine DRIP 800 mg In 21.938 Water For Injection 1 250ml.bag @ 5 MCG/KG/MIN 9.956 mls/hr IV .Q24H [facility] Rx#:[id number] Gentamicin 100 mg In 100 Sodium Chloride 0.9% 100 ml @ 102.5 mls/hr IVPB Q12HR@0000,1200 [facility] Rx#: [id number] Tube Feeding 385 825 Other 0 90 Output: Urine 825 655 425 Other: Voiding Method Indwelling Catheter Indwelling Catheter Indwelling Catheter - Exam -GENERAL: The patient is confused and sleepy HEENT: Pupils are round and equally reacting to light. EOMI. No scleral icterus. No conjunctival pallor. Normocephalic, atraumatic. No pharyngeal erythema. No thyromegaly. -CARDIOVASCULAR: S1 and S2 present. No murmurs, rubs, or gallops. Regular heart beat PULMONARY: Chest is clear to auscultation, no wheezing or crackles. ABDOMEN: Soft, nontender, nondistended, normoactive bowel sounds. No palpable organomegaly. MUSCULOSKELETAL: No joint swelling or deformity. EXTREMITIES: No cyanosis, clubbing, or pedal edema. -NEUROLOGICAL: Difficult to assess due to medical condition, patient is confused. No obvious signs of lateralization SKIN: No rashes. no petechiae. - Labs CBC & Chem 7: 01/01/19 05:22 01/01/19 05:22 Labs: Abnormal Lab Results - Last 24 Hours (Table) 01/01/19 01/01/19 Range/Units 05:22 05:22 RBC 3.91 L (4.30-5.90) m/uL Hgb 11.3 L (13.0-17.5) gm/dL Hct 34.2 L (39.0-53.0) % Lymphocytes # 0.8 L (1.0-4.8) k/uL Chloride 110 H (98-107) mmol/L BUN 34 H (9-20) mg/dL Glucose 119 H (74-99) mg/dL Microbiology - Last 24 Hours (Table) 12/31/18 10:59 Blood Culture - Preliminary Blood No Growth after 24 hours 12/31/18 11:05 Blood Culture - Preliminary Blood No Growth after 24 hours Assessment and Plan Assessment: Mitral valve endocarditis with possible multiple septic emboli in the brain Metabolic encephalopathy secondary to above Acute heart block with second to third degree heart block Benign prostatic hypertrophy, Status post Recent surgery of TURP with bacteremia with Streptococcus agalactiae group B Obesity with BMI 31.3 Paroxysmal atrial flutter/fibrillation, Hypertension Hyperlipidemia Hypothyroidism Plan: This is a pleasant 78 years old female who presents with his PE and stroke. Continue with antibiotics as per infectious disease. Follow-up cardiology recommendation. Patient remains critically in the ICU with pulmonary/critical care team, the patient, follow-up recommendation by other consultants. Monitor heart rate and blood pressure. Labs and medication were reviewed.. Continue same treatment. Continue with symptomatic treatment. Resume home medication. Monitor lytes and vitals. DVT and GI prophylaxis. Further recommendations of the clinical course of the patient DVT prophylaxis: Subcutaneous Lovenox GI Prophylaxis: Pepcid Prognosis is guarded
[2019-01-01] MEDS: DOPamine DRIP 800 MG in WATER FOR INJECTION 1 250ML.BAG IV SCH (15:18)
--- NOTE | 2019-01-01 17:38 | PN ---
PROGRESS NOTE Ankit is a 78-year-old gentleman who was admitted to ICU with infective endocarditis and CVA secondary to thromboembolic phenomenon from the vegetation. The patient is looking better today. He is more alert, more awake and more responsive to questions. He remains in sinus rhythm with first-degree AV block and intermittent episodes of AV dissociation with junctional rhythm, but his conduction seemed to have improved from yesterday. He looks much more alert and awake today. He remains on IV antibiotics. EXAM: Heart rate is 46 beats per minute, blood pressure is 145/60, respirations 18. Chest exam reveals good air entry bilaterally. I do not hear any crackles or rhonchi. Heart exam reveals first and second heart sounds and a systolic murmur at the apex. Abdomen is soft. Exam of extremities did not reveal any edema. LAB: Show a hemoglobin of 11.3, platelet count is 259. Potassium is 3.7, creatinine is 1. ASSESSMENT: 1. Infective endocarditis with a vegetation on the mitral valve. 2. 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 3. Complete heart block. PLAN: Patient is stable rhythm-oropeza, tolerating the bradycardia well. Blood pressures have been normal. He looks much more alert and awake. We will obtain a 2D echo on him on Thursday to assess the mitral regurgitation. MMODL / IJN: [id number] /
[2019-01-01] MEDS: NITROGLYCERIN OINT 1 INCH/GM PACKET TOPICAL SCH (17:48)
[2019-01-01] MEDS: FAMOTIDINE 20 MG/2 ML VIAL IV SCH (21:17)
[2019-01-01] MEDS: LEVOTHYROXINE IVP 100 MCG/5 ML VIAL IV SCH (21:17)
[2019-01-02] MEDS: GENTAMICIN 100 MG in SODIUM CHLORIDE 0.9% 100 ML IVPB SCH ×3 (00:17→23:26)
[2019-01-02] MEDS: NITROGLYCERIN OINT 1 INCH/GM PACKET TOPICAL SCH ×4 (00:19→23:47)
[2019-01-02 05:45] LABS: Basophils % (A) 0 %; Eosinophils # (A) 0.1 k/uL (0-0.7); Eosinophils % (A) 2 %; HCT 30.3 % (39.0-53.0); HGB 10.1 gm/dL (13.0-17.5); Hypochromasia Slight; Lymphocytes # (A) 0.8 k/uL (1.0-4.8); Lymphocytes % (A) 12 %; MCHC 33.3 g/dL (31.0-37.0); MCV 86.8 fL (80.0-100.0); Mean Platelet Volume 6.3; Monocytes # (A) 0.4 k/uL (0-1.0); Monocytes % (A) 6 %; Neutrophils # (A) 4.9 k/uL (1.3-7.7); Neutrophils % (A) 77 %; Platelet Count 233 k/uL (150-450); Poikilocytosis Slight; RBC 3.49 m/uL (4.30-5.90); RDW 14.6 % (11.5-15.5); WBC 6.4 k/uL (3.8-10.6)
[2019-01-02 05:56] LABS: Calcium 8.7 mg/dL (8.4-10.2); Potassium 3.6 mmol/L (3.5-5.1)
[2019-01-02] MEDS: SODIUM CHLORIDE 0.9% 1,000 ML IV SCH ×2 (06:42→16:16)
[2019-01-02] MEDS: POTASSIUM CHLORIDE 10 MEQ in WATER FOR INJECTION 1 100ML.BAG IVPB SCH ×2 (06:43→08:55)
[2019-01-02] MEDS: FAMOTIDINE 20 MG/2 ML VIAL IV SCH ×2 (09:00→20:17)
[2019-01-02] MEDS: ENOXAPARIN 40 MG/0.4 ML SYRINGE SQ SCH (09:01)
--- NOTE | 2019-01-02 11:26 | P.PN ---
Subjective This is a pleasant 78 years old female with past medical history of atrial fibrillation, hyperlipidemia, hypertension, hypothyroidism. Patient admitted on the care of Dr. Galeano. Patient could not provide information so were taken from the records 2 weeks prior to that patient had undergone TURP by from urology. Patient was then admitted with confusion. Blood cultures were positive for Streptococcus agalactiae group B. Patient is put on IV ceftriaxone and blood cultures were negative prior to discharge. Patient was switched over to Ceftin. Also was found to have an atrial fibrillation. And patient is put on eliquis. Patient was subsequently was discharged to [facility] inpatient rehab under Dr. King. Patient is doing well there. And patient became short of breath. Found to be in pulmonary edema. Patient had been diagnosed with second degree heart block here at [facility] and had been seen by cardiology. Plan was not to do any further intervention. Subsequently from the inpatient rehab patient was moved to the medical floor. And then was put on dobutamine drip and motor the ICU. Was a concern about putting the transvenous pacemaker because of underlying infection. Patient subsequently became lethargic. And because no neurology service was available he was transferred here yesterday. Patient had no fever no white count. Neurology consult was done. Patient was moved to the ICU. Patient had ibis-stroke breathing. Patient is put on IV antibiotics. Patient today is seen in the ICU, he is sleepy and wakes up at times, but this is improved compared to yesterday were currently he soaks 12 warts before he go back to sleep. He pulled his NG tube today and is getting no feeding currently. There is no apparent weakness in arms or legs. Patient has been evaluated by neurologist, patient was found possible hypodense lesion in the left proximal on CT of the head, THEODORE showing vegetations and MRI brain showing multiple areas of stroke likely from infective endocarditis. Infectious disease on the case for bacterial endocarditis and septic emboli to the brain. Patient currently on ceftriaxone and gentamicin for penicillin ALLERGY 01/02/2019 Patient remains in the ICU, his more awake today and answering some questions more appropriately. He knows he is in the hospital, is oriented to time however not to person, also he does not aware about his illness. He denies chest pain or dyspnea. He has no weakness in one arm or leg. He remains on Rocephin and gentamicin for bacterial endocarditis. Also he is on IV fluids with normal saline at 75 mL/h. His bradycardic with heart rate in 40s to 50s however his blood pressure is on the high side is and this morning 159/72-186/83. Patient status post TURP for his BPH but he has not urinary complaints currently. Patient has been followed by several consultants including cardiology, neurology and infectious disease as well as pulmonary/critical care team. Review of systems CONSTITUTIONAL: No fever, no malaise, no fatigue. HEENT: No recent visual problems or hearing problems. Denied any sore throat. CARDIOVASCULAR: No orthopnea, PND, no palpitations, no syncope. PULMONARY: No shortness of breath, no cough, no hemoptysis. GASTROINTESTINAL: No diarrhea, no nausea, no vomiting, no abdominal pain. Normoactive bowel sounds. NEUROLOGICAL: No headaches, no weakness, no numbness. HEMATOLOGICAL: Denies any bleeding or petechiae. GENITOURINARY: Denies any burning micturition, frequency, or urgency. MUSCULOSKELETAL/RHEUMATOLOGICAL: Denies any joint pain, swelling, or any muscle pain. ENDOCRINE: Denies any polyuria or polydipsia. Active Medications Generic Name Dose Route Start Last Admin Trade Name Freq PRN Reason Stop Dose Admin Benzocaine 1 spray 12/29/18 11:31 12/29/18 12:28 Hurricaine [place] MUCOUS MEM 1 spray QID PRN Administration Mouth Irritation Enoxaparin Sodium 40 mg 12/28/18 17:00 01/02/19 09:01 Lovenox SQ 40 mg DAILY [facility] Administration Famotidine 10 mg 01/01/19 21:00 01/02/19 09:00 Pepcid IV 10 mg Q12HR [facility] Administration Hydralazine HCl 10 mg 01/02/19 11:05 Apresoline IVP Q6HR PRN Blood Pressure - High Dopamine HCl/Dextrose 800 mg/ 250 mls @ 9.956 mls/hr 12/28/18 16:00 01/01/19 15:18 IV Solution IV Not Given .Q24H [facility] Protocol 5 MCG/KG/MIN Sodium Chloride 1,000 mls @ 75 mls/hr 12/28/18 16:00 01/02/19 06:42 Saline 0.9% IV 75 mls/hr .[id number] [facility] Administration Ceftriaxone Sodium 2 gm/ 50 mls @ 100 mls/hr 12/28/18 20:30 01/02/19 08:58 Sodium Chloride IVPB 100 mls/hr Q24HR [facility] Administration Gentamicin Sulfate 100 mg/ 102.5 mls @ 102.5 mls/hr 12/29/18 15:00 01/02/19 00:17 Sodium Chloride IVPB 102.5 mls/hr Q12HR@0000,1200 [facility] Administration Levothyroxine Sodium 75 mcg 12/28/18 21:00 01/01/19 21:17 Synthroid Ivp IV 75 mcg Q48H [facility] Administration Methyl Salicylate 1 applic 01/01/19 12:07 01/01/19 18:05 Thera-Gesic Cream TOPICAL 1 applic Q4HR PRN Administration Pain Miscellaneous Information 1 each 12/30/18 06:34 Potassium Per Protocol MISCELLANE DAILY PRN Per Protocol Protocol Nitroglycerin 1 inch 01/01/19 17:45 01/02/19 09:01 Nitro-Bid Oint TOPICAL 1 inch Q8HR [facility] Administration Objective - Vital Signs Vital signs: Vital Signs Temp 98.3 F 01/02/19 08:00 Pulse 43 L 01/02/19 11:00 Resp 16 01/02/19 11:00 BP 186/83 01/02/19 11:00 Pulse Ox 97 01/02/19 11:00 Intake & Output 01/01/19 01/02/19 01/02/19 18:59 06:59 18:59 Intake Total 1050 1175 425 Output Total 585 795 265 Balance 465 380 160 Weight 104.6 kg Intake: IV 1050 1075 425 Gentamicin 100 mg In 100 Sodium Chloride 0.9% 100 ml @ 102.5 mls/hr IVPB Q12HR@0000,1200 [facility] Rx#: [id number] Potassium Chloride 10 meq 200 100 In Water For Injection 1 100ml.bag @ 100 mls/hr IVPB Q1H [facility] Rx#: [id number] Sodium Chloride 0.9% 1, 750 975 225 000 ml @ 75 mls/hr IV . [id number] [facility] Rx#:[id number] cefTRIAXone 2 gm In 100 100 Sodium Chloride 0.9% 50 ml @ 100 mls/hr IVPB Q24HR [facility] Rx#:[id number] Intake, IV Titration 100 Amount Potassium Chloride 10 meq 100 In Water For Injection 1 100ml.bag @ 100 mls/hr IVPB Q1H [facility] Rx#: [id number] Output: Urine 585 795 265 Other: Voiding Method Indwelling Catheter Indwelling Catheter - Exam -GENERAL: The patient is confused and sleepy HEENT: Pupils are round and equally reacting to light. EOMI. No scleral icterus. No conjunctival pallor. Normocephalic, atraumatic. No pharyngeal erythema. No thyromegaly. -CARDIOVASCULAR: S1 and S2 present. No murmurs, rubs, or gallops. Regular heart beat PULMONARY: Chest is clear to auscultation, no wheezing or crackles. ABDOMEN: Soft, nontender, nondistended, normoactive bowel sounds. No palpable organomegaly. MUSCULOSKELETAL: No joint swelling or deformity. EXTREMITIES: No cyanosis, clubbing, or pedal edema. -NEUROLOGICAL: Difficult to assess due to medical condition, patient is con fused. No obvious signs of lateralization SKIN: No rashes. no petechiae. - Labs CBC & Chem 7: 01/02/19 04:59 01/02/19 04:59 Labs: Abnormal Lab Results - Last 24 Hours (Table) 01/02/19 01/02/19 Range/Units 04:59 04:59 RBC 3.49 L (4.30-5.90) m/uL Hgb 10.1 L (13.0-17.5) gm/dL Hct 30.3 L (39.0-53.0) % Lymphocytes # 0.8 L (1.0-4.8) k/uL Chloride 111 H (98-107) mmol/L BUN 28 H (9-20) mg/dL Glucose 113 H (74-99) mg/dL Microbiology - Last 24 Hours (Table) 12/31/18 10:59 Blood Culture - Preliminary Blood No Growth after 24 hours 12/31/18 11:05 Blood Culture - Preliminary Blood No Growth after 24 hours Assessment and Plan Assessment: Mitral valve endocarditis with possible multiple septic emboli in the brain Metabolic encephalopathy secondary to above, improving Acute heart block with second to third degree heart block Benign prostatic hypertrophy, Status post Recent surgery of TURP with bacteremia with Streptococcus agalactiae group B Obesity with BMI 31.3 Paroxysmal atrial flutter/fibrillation, Hypertension Hyperlipidemia Hypothyroidism Plan: This is a pleasant 78 years old female who presents with his PE and stroke. Continue with antibiotics as per infectious disease. Follow-up cardiology recommendation. Patient remains critically in the ICU with pulmonary/critical care team, the patient, follow-up recommendation by other consultants. Monitor heart rate and blood pressure. Labs and medication were reviewed.. Continue same treatment. Continue with symptomatic treatment. Resume home medication. Monitor lytes and vitals. DVT and GI prophylaxis. Further recommendations of the clinical course of the patient DVT prophylaxis: Subcutaneous Lovenox GI Prophylaxis: Pepcid Prognosis is guarded
--- NOTE | 2019-01-02 11:56 | P.PN ---
Subjective Progress Note Date: 01/02/19 On 01/02/2019 on seeing this patient for a follow-up. His condition essentially the same as yesterday. No major change in his neurologic functions. He is arousable. On and off is confused. He can answer a few questions. If left unstimulated, he will drift back into sleep. He remains in a high degree AV block, and on my evaluation this afternoon, I found that the patient was in a first-degree AV block with prolonged MD interval. We attempted to insert another NG tube in him which failed. The patient has been constantly pulling it out and he became quite uncomfortable with an NG tube in place. Based on that, I may make recommendations to proceed with PEG tube if we get a clearance from anesthesia and cardiology regarding this procedure. We'll consult gastroenterology for This Procedure. He is off dopamine for the past 48 hours. Hemodynamically his blood pressure was noted to be elevated and the patient is getting hydralazine 10 mg IV push every 6 hours for blood pressure control. No nausea. No vomiting. No emesis. No focal neurological deficit. He has a good cough and a good gag reflex. He remains on the same antibiotic coverage. Blood cultures of been negative. Objective - Vital Signs Vital signs: Vital Signs Temp 98.3 F 01/02/19 08:00 Pulse 43 L 01/02/19 11:00 Resp 16 01/02/19 11:00 BP 186/83 01/02/19 11:00 Pulse Ox 97 01/02/19 11:00 Intake & Output 01/01/19 01/02/19 01/02/19 18:59 06:59 18:59 Intake Total 1050 1175 425 Output Total 585 795 265 Balance 465 380 160 Weight 104.6 kg Intake: IV 1050 1075 425 Gentamicin 100 mg In 100 Sodium Chloride 0.9% 100 ml @ 102.5 mls/hr IVPB Q12HR@0000,1200 [facility] Rx#: [id number] Potassium Chloride 10 meq 200 100 In Water For Injection 1 100ml.bag @ 100 mls/hr IVPB Q1H [facility] Rx#: [id number] Sodium Chloride 0.9% 1, 750 975 225 000 ml @ 75 mls/hr IV . [id number] [facility] Rx#:[id number] cefTRIAXone 2 gm In 100 100 Sodium Chloride 0.9% 50 ml @ 100 mls/hr IVPB Q24HR [facility] Rx#:[id number] Intake, IV Titration 100 Amount Potassium Chloride 10 meq 100 In Water For Injection 1 100ml.bag @ 100 mls/hr IVPB Q1H [facility] Rx#: [id number] Output: Urine 585 795 265 Other: Voiding Method Indwelling Catheter Indwelling Catheter - Exam Gen. appearance the patient has quite lethargic and obtunded. He opens his eyes when his called his name and whenever is given to painful stimulation. He is able to follow some simple commands and is able to follow simple directions and answers simple questions. No signs of any respiratory distress. Upon further monitoring, while sleeping, the patient is not having any Hammad-Carrillo respiration on today's evaluation. He seems to be overall a bit more awake and alert compared to yesterday. His level of consciousness seems to be more improved compared to yesterday. Head exam was generally normal. There was no scleral icterus or corneal arcus. Mucous membranes were moist. The patient has an NG tube in place and enteral feeding was initiated yesterday. Neck was supple and without jugular venous distension, thyromegaly, or carotid bruits. Carotids were easily palpable bilaterally. There was no adenopathy. Neurologic exam in general is nonfocal. Pupils are equal and reactive to light and they're symmetrical. No clonus. No Babinski. Able to move all 4 extremities without any limitation and the patient is withdrawing to painful stimulation. No facial asymmetry. Sensorimotor functions cannot be accurately assessed as the patient is not cooperating with that. Reflexes are symmetrical +2. Gait is not assessed. Lungs were clear to auscultation and percussion, and with normal diaphragmatic excursion. No wheezes or rales were noted. Heart sounds are bradycardic consistent with first-degree AV block. A faint murmur can be appreciated lung left lateral sternal border. Abdominal exam revealed normal bowel sounds. The abdomen was soft, non-tender, and without masses, organomegaly, or appreciable enlargement of the abdominal aorta. Examination of the extremities revealed easily palpable radial, femoral and pedal pulses. There was no cyanosis, clubbing or edema. Examination of the skin revealed no evidence of significant rashes, suspicious appearing nevi or other concerning lesions. Psychiatric evaluation cannot be done. - Labs CBC & Chem 7: 01/02/19 04:59 01/02/19 04:59 Labs: Abnormal Lab Results - Last 24 Hours (Table) 01/02/19 01/02/19 Range/Units 04:59 04:59 RBC 3.49 L (4.30-5.90) m/uL Hgb 10.1 L (13.0-17.5) gm/dL Hct 30.3 L (39.0-53.0) % Lymphocytes # 0.8 L (1.0-4.8) k/uL Chloride 111 H (98-107) mmol/L BUN 28 H (9-20) mg/dL Glucose 113 H (74-99) mg/dL Microbiology - Last 24 Hours (Table) 12/31/18 10:59 Blood Culture - Preliminary Blood No Growth after 24 hours 12/31/18 11:05 Blood Culture - Preliminary Blood No Growth after 24 hours Assessment and Plan Plan: 1 infective endocarditis possibly related to recent activity noted the patient encountered post TURP. The patient was infected with strep group B and the patient was hospitalized and received inpatient antibiotic treatment and he was discharged home on oral antibiotic. The patient underwent a THEODORE on 12/29/2018 the patient was found to have a 1 cm mobile echodense structure attached to the posterior mitral leaflet on that she has surface consistent with vegetation. An abscess was not seen. The patient remains on a combination of Rocephin and gentamicin. The patient's heart rate has improved and today he seems to be in a degree AV block. His been off Diprivan for the past 48 hours. 2 third-degree AV block which is alternating with a second-degree AV block and junctional rhythm, likely complication of infective endocarditis, rule out cardiac abscess. this morning he is in a first-degree AV block 3 altered mental status. The patient was found to have multiple areas of stroke/septic emboli and the cortical and subcortical area and the cerebellum. This is possibly related to septic embolization. Clinically improving slowly yet unchanged compared to yesterday. The patient is unable to swallow and he has pulled out his NG tube. 4 Hammad-Carrillo breathing secondary to above, less frequent 5 benign prostatic hypertrophy post TURP 6 hyperlipidemia 7 hypertension, current BP is slightly elevated and the patient is receiving hydralazine 10 mg every 6 hours for tighter blood pressure control. 8 hypothyroidism 9 troponin leak secondary to endocarditis 10 generalized weakness and inability to swallow the patient pulled out his NG tube and we are unable to insert a new tube. Plan The swallow evaluation tomorrow. If he continues to fail swallow evaluations, the patient may need a PEG tube for enteral feeding and nutritional support. We'll consult with cardiology regarding clearance for this procedure. We'll consult GI. Continue same antibiotic coverage. Aspiration precautions. Monitor the cardiac rhythm. Off dopamine for now. He can be transferred to active unit for further monitoring.
[2019-01-02] MEDS: hydrALAZINE HCL 20 MG/ML 1 ML VIAL IVP PRN (12:10)
[2019-01-02] MEDS: METHYL SALICYLATE/MENTHOL CREAM 5 OZ TOPICAL PRN (12:30)
--- NOTE | 2019-01-02 13:18 | PN ---
PROGRESS NOTE Ankit is a 78-year-old gentleman that is admitted to ICU with infective endocarditis, brainstem stroke and bradyarrhythmia. This morning, he remains in sinus rhythm with intermittent episodes of high-grade AV block. The conduction has improved. He is less alert than yesterday. Continues to have Hammad-Carrillo breathing. On exam, heart rate is 40 beats per minute. Blood pressure is elevated at 189/76, respiratory rate is 18. Chest exam reveals diminished air entry at the bases. Heart exam reveals first and second heart sounds. Has a systolic murmur at the left lower sternal border. Abdomen is soft. Exam of extremities did not reveal any edema. Peripheral pulses are felt. Cardiac exam: There is a systolic murmur at the apex. ASSESSMENT: 1. Infective endocarditis with mitral regurgitation. 2. 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 3. Bradyarrhythmia, asymptomatic. PLAN: I am going to give Apresoline intravenously for blood pressure control. I will obtain a 2D echo on him tomorrow morning to assess the mitral regurgitation. MMODL / IJN: [id number] /
--- NOTE | 2019-01-02 14:03 | P.PN ---
Subjective Progress Note Date: 01/02/19 Patient seen and evaluated. Family is at bedside. He had a stroke and septic emboli. Per ICU request, PEG tube placement is being requested. Objective - Vital Signs Vital signs: Vital Signs Temp 97.6 F 01/02/19 12:00 Pulse 47 L 01/02/19 13:00 Resp 23 01/02/19 13:00 BP 154/61 01/02/19 13:00 Pulse Ox 99 01/02/19 13:00 Intake & Output 01/01/19 01/02/19 01/02/19 18:59 06:59 18:59 Intake Total 1050 1175 600 Output Total 585 795 430 Balance 465 380 170 Weight 104.6 kg Intake: IV 1050 1075 600 Gentamicin 100 mg In 100 100 Sodium Chloride 0.9% 100 ml @ 102.5 mls/hr IVPB Q12HR@0000,1200 [facility] Rx#: [id number] Potassium Chloride 10 meq 200 100 In Water For Injection 1 100ml.bag @ 100 mls/hr IVPB Q1H [facility] Rx#: [id number] Sodium Chloride 0.9% 1, 750 975 300 000 ml @ 75 mls/hr IV . [id number] [facility] Rx#:[id number] cefTRIAXone 2 gm In 100 100 Sodium Chloride 0.9% 50 ml @ 100 mls/hr IVPB Q24HR [facility] Rx#:[id number] Intake, IV Titration 100 Amount Potassium Chloride 10 meq 100 In Water For Injection 1 100ml.bag @ 100 mls/hr IVPB Q1H [facility] Rx#: [id number] Output: Urine 585 795 430 Other: Voiding Method Indwelling Catheter Indwelling Catheter - Labs CBC & Chem 7: 01/02/19 04:59 01/02/19 04:59 Labs: Abnormal Lab Results - Last 24 Hours (Table) 01/02/19 01/02/19 Range/Units 04:59 04:59 RBC 3.49 L (4.30-5.90) m/uL Hgb 10.1 L (13.0-17.5) gm/dL Hct 30.3 L (39.0-53.0) % Lymphocytes # 0.8 L (1.0-4.8) k/uL Chloride 111 H (98-107) mmol/L BUN 28 H (9-20) mg/dL Glucose 113 H (74-99) mg/dL Microbiology - Last 24 Hours (Table) 12/31/18 10:59 Blood Culture - Preliminary Blood No Growth after 48 hours 12/31/18 11:05 Blood Culture - Preliminary Blood No Growth after 48 hours
--- NOTE | 2019-01-02 14:07 | P.GSCN ---
History of Present Illness Consult date: 01/02/19 History of present illness: The patient is a 78-year-old male who comes with a complicated history of lethargy followed by recent stroke. He had a THEODORE consistent with vegetation. As a result TPN is not being advised. Separately, patient has been without oral nutrition for 5 days. Attempted nasogastric tube has been unsuccessful as the patient continues to remove his nasogastric tube. Separately, family is at bedside denies additional information. Patient has intermittent garbled speech. Per family's observation, he is slowly clinically improving. Additional history from his nurse at bedside also reports prior failed oral swallow studies. General surgery's consult and for evaluation for enteral nutrition. Patient seen and evaluated. Family is at bedside. He had a stroke and septic emboli. Per ICU request, PEG tube placement is being requested. ABDOMEN: Nondistended. Nontender. Soft ASSESSMENT: 1. Inadequate protein malnutrition with mild protein caloric malnutrition 2. History of stroke with dysphagia PLAN: 1. C ritical care team is awaiting clearance from cardiology regarding heart block 2. Otherwise, enteral nutrition and gastrostomy tube placement pending clearance as stated above. Past Medical History Past Medical History: Atrial Fibrillation, Hyperlipidemia, Hypertension, Prostate Disorder, Thyroid Disorder Additional Past Medical History / Comment(s): Recent hospitalization for sepsis related to strep group B. The patient was initially started on vancomycin as the patient was ALLERGIC to penicillins. Subsequently was switched to Rocephin and at time of discharge the patient was released home on cefuroxime History of Any Multi-Drug Resistant Organisms: None Reported Past Surgical History: Prostate Surgery Additional Past Surgical History / Comment(s): COLONOSCOPY. BILAT CATARACTS. TURP procedure Past Anesthesia/Blood Transfusion Reactions: No Reported Reaction Past Psychological History: No Psychological Hx Reported Smoking Status: Former smoker Past Alcohol Use History: None Reported Additional Past Alcohol Use History / Comment(s): QUIT SMOKING 1972 Past Drug Use History: None Reported - Past Family History Mother Family Medical History: No Reported History Medications and Allergies Home Medications Medication Instructions Recorded Confirmed Type Enalapril/Hydrochlorothiazide 1 tab PO DAILY 01/22/17 12/28/18 History [Enalapril-Hctz 10-25 mg Tablet] Simvastatin [Zocor] 20 mg PO HS 01/22/17 12/28/18 History Apixaban [Eliquis] 5 mg PO BID #60 tab 12/23/18 12/28/18 Rx Cefuroxime Axetil [Ceftin] 500 mg PO BID #22 tab 12/23/18 12/28/18 Rx Atenolol [Tenormin] 25 mg PO DAILY 12/28/18 12/28/18 History Levothyroxine Sodium [Synthroid] 88 mcg PO DAILY 12/28/18 12/28/18 History Allergies Allergy/AdvReac Type Severity Reaction Status Date / Time Penicillins Allergy Rash/Hives Verified 12/28/18 18:59 Surgical - Exam Vital Signs Pulse Resp BP Pulse Ox 33 L 152/70 90 L 12/28/18 15:00 12/28/18 15:00 12/28/18 15:00 12/28/18 15:00 Results - Labs 01/04/19 05:50 01/04/19 05:50 Abnormal Lab Results - Last 24 Hours (Table) 01/02/19 01/02/19 Range/Units 04:59 04:59 RBC 3.49 L (4.30-5.90) m/uL Hgb 10.1 L (13.0-17.5) gm/dL Hct 30.3 L (39.0-53.0) % Lymphocytes # 0.8 L (1.0-4.8) k/uL Chloride 111 H (98-107) mmol/L BUN 28 H (9-20) mg/dL Glucose 113 H (74-99) mg/dL Microbiology - Last 24 Hours (Table) 12/31/18 10:59 Blood Culture - Preliminary Blood No Growth after 48 hours 12/31/18 11:05 Blood Culture - Preliminary Blood No Growth after 48 hours Diabetes panel 01/02/19 Range/Units 04:59 Sodium 142 (137-145) mmol/L Potassium 3.6 (3.5-5.1) mmol/L Chloride 111 H (98-107) mmol/L Carbon Dioxide 24 (22-30) mmol/L BUN 28 H (9-20) mg/dL Creatinine 1.04 (0.66-1.25) mg/dL Glucose 113 H (74-99) mg/dL Calcium 8.7 (8.4-10.2) mg/dL Calcium panel 01/02/19 Range/Units 04:59 Calcium 8.7 (8.4-10.2) mg/dL Pituitary panel 01/02/19 Range/Units 04:59 Sodium 142 (137-145) mmol/L Potassium 3.6 (3.5-5.1) mmol/L Chloride 111 H (98-107) mmol/L Carbon Dioxide 24 (22-30) mmol/L BUN 28 H (9-20) mg/dL Creatinine 1.04 (0.66-1.25) mg/dL Glucose 113 H (74-99) mg/dL Calcium 8.7 (8.4-10.2) mg/dL Adrenal panel 01/02/19 Range/Units 04:59 Sodium 142 (137-145) mmol/L Potassium 3.6 (3.5-5.1) mmol/L Chloride 111 H (98-107) mmol/L Carbon Dioxide 24 (22-30) mmol/L BUN 28 H (9-20) mg/dL Creatinine 1.04 (0.66-1.25) mg/dL Glucose 113 H (74-99) mg/dL Calcium 8.7 (8.4-10.2) mg/dL
[2019-01-02] MEDS: DOPamine DRIP 800 MG in WATER FOR INJECTION 1 250ML.BAG IV SCH (16:01)
[2019-01-02 16:31] LABS: Glucose,Whole Blood 117 mg/dL (75-99)
--- NOTE | 2019-01-02 17:30 | PN ---
PROGRESS NOTE DATE OF SERVICE: 01/02/2019 REASON FOR FOLLOWUP: Mitral valve endocarditis. INTERVAL HISTORY: The patient is currently afebrile. Patient is breathing comfortably on room air. Denies having any chest pain or cough. very poor. No nausea, vomiting or diarrhea report by the nursing staff. PHYSICAL EXAMINATION: Blood pressure is 140/65 with a pulse of 68, temperature 97.6. He is 99% on room air. General description is an elderly male lying in bed in no distress. Respiratory system: Unlabored breathing with decreased breath sounds in the bases. No wheeze. Heart S1, S2. Regular rate and rhythm. Abdomen soft. No tenderness. Extremities: No edema of the feet. LABS: Hemoglobin is 10.8, white count 6.4, BUN of 28, creatinine 1.04. Blood culture has been negative. Urine is negative. DIAGNOSTIC IMPRESSION AND PLAN: Patient with mitral valve endocarditis secondary to Streptococcus agalactiae with possible septic emboli. Patient is currently covered with Rocephin and gentamicin. Kidney function to be monitored closely. Family at the bedside. Their questions and concerns were answered. PICC line can be placed for outpatient IV antibiotic therapy. MMODL / IJN: [id number] /
[2019-01-02 20:38] LABS: Glucose,Whole Blood 116 mg/dL (75-99)
[2019-01-03] MEDS: hydrALAZINE HCL 20 MG/ML 1 ML VIAL IVP PRN ×2 (03:54→23:27)
[2019-01-03 06:33] LABS: Glucose,Whole Blood 120 mg/dL (75-99)
[2019-01-03 06:35] LABS: Basophils % (A) 1 %; Eosinophils # (A) 0.1 k/uL (0-0.7); Eosinophils % (A) 2 %; HCT 31.8 % (39.0-53.0); HGB 10.6 gm/dL (13.0-17.5); Hypochromasia Slight; Lymphocytes # (A) 0.7 k/uL (1.0-4.8); Lymphocytes % (A) 10 %; MCH 28.9 pg (25.0-35.0); MCHC 33.2 g/dL (31.0-37.0); Mean Platelet Volume 6.5; Monocytes # (A) 0.4 k/uL (0-1.0); Monocytes % (A) 6 %; Neutrophils # (A) 5.9 k/uL (1.3-7.7); Neutrophils % (A) 80 %; Platelet Count 251 k/uL (150-450); Poikilocytosis Slight; RBC 3.66 m/uL (4.30-5.90); RDW 14.7 % (11.5-15.5); WBC 7.4 k/uL (3.8-10.6)
[2019-01-03 06:49] LABS: Calcium 8.8 mg/dL (8.4-10.2); Potassium 3.5 mmol/L (3.5-5.1)
--- NOTE | 2019-01-03 07:41 | P.PN ---
Subjective This is a pleasant 78 years old female with past medical history of atrial fibrillation, hyperlipidemia, hypertension, hypothyroidism. Patient admitted on the care of Dr. Galeano. Patient could not provide information so were taken from the records 2 weeks prior to that patient had undergone TURP by from urology. Patient was then admitted with confusion. Blood cultures were positive for Streptococcus agalactiae group B. Patient is put on IV ceftriaxone and blood cultures were negative prior to discharge. Patient was switched over to Ceftin. Also was found to have an atrial fibrillation. And patient is put on eliquis. Patient was subsequently was discharged to [facility] inpatient rehab under Dr. King. Patient is doing well there. And patient became short of breath. Found to be in pulmonary edema. Patient had been diagnosed with second degree heart block here at [facility] and had been seen by cardiology. Plan was not to do any further intervention. Subsequently from the inpatient rehab patient was moved to the medical floor. And then was put on dobutamine drip and motor the ICU. Was a concern about putting the transvenous pacemaker because of underlying infection. Patient subsequently became lethargic. And because no neurology service was available he was transferred here yesterday. Patient had no fever no white count. Neurology consult was done. Patient was moved to the ICU. Patient had ibis-stroke breathing. Patient is put on IV antibiotics. Patient today is seen in the ICU, he is sleepy and wakes up at times, but this is improved compared to yesterday were currently he soaks 12 warts before he go back to sleep. He pulled his NG tube today and is getting no feeding currently. There is no apparent weakness in arms or legs. Patient has been evaluated by neurologist, patient was found possible hypodense lesion in the left proximal on CT of the head, THEODORE showing vegetations and MRI brain showing multiple areas of stroke likely from infective endocarditis. Infectious disease on the case for bacterial endocarditis and septic emboli to the brain. Patient currently on ceftriaxone and gentamicin for penicillin ALLERGY 01/02/2019 Patient remains in the ICU, his more awake today and answering some questions more appropriately. He knows he is in the hospital, is oriented to time however not to person, also he does not aware about his illness. He denies chest pain or dyspnea. He has no weakness in one arm or leg. He remains on Rocephin and gentamicin for bacterial endocarditis. Also he is on IV fluids with normal saline at 75 mL/h. His bradycardic with heart rate in 40s to 50s however his blood pressure is on the high side is and this morning 159/72-186/83. Patient status post TURP for his BPH but he has not urinary complaints currently. Patient has been followed by several consultants including cardiology, neurology and infectious disease as well as pulmonary/critical care team. 01/03/2019 Patient was moved to select [facility] floor yesterday, patient still confused and drowsy. Patient has been evaluated by surgery service yesterday for possible PEG feeding tube placement, however he will need swallow reevaluation prior to that. Vitals are stable with heart rate 48 and blood pressure 170/74. Hemoglobin is stable at 10.6, anaphylaxis and normal and creatinine 0.9. Sugar is controlled Objective - Vital Signs Vital signs: Vital Signs Temp 99.2 F 01/03/19 03:45 Pulse 48 L 01/03/19 03:45 Resp 21 01/03/19 03:45 BP 178/74 01/03/19 03:45 Pulse Ox 97 01/03/19 03:45 Intake & Output 01/02/19 01/03/19 01/03/19 18:59 06:59 18:59 Intake Total 825 Output Total 565 400 Balance 260 -400 Weight 104.5 kg Intake: IV 825 Gentamicin 100 mg In 100 Sodium Chloride 0.9% 100 ml @ 102.5 mls/hr IVPB Q12HR@0000,1200 [facility] Rx#: [id number] Potassium Chloride 10 meq 100 In Water For Injection 1 100ml.bag @ 100 mls/hr IVPB Q1H [facility] Rx#: [id number] Sodium Chloride 0.9% 1, 525 000 ml @ 75 mls/hr IV . [id number] [facility] Rx#:[id number] cefTRIAXone 2 gm In 100 Sodium Chloride 0.9% 50 ml @ 100 mls/hr IVPB Q24HR [facility] Rx#:[id number] Output: Urine 565 400 Other: Voiding Method Indwelling Catheter Indwelling Catheter - Exam -GENERAL: The patient is confused and sleepy HEENT: Pupils are round and equally reacting to light. EOMI. No scleral icterus. No conjunctival pallor. Normocephalic, atraumatic. No pharyngeal erythema. No thyromegaly. -CARDIOVASCULAR: S1 and S2 present. No murmurs, rubs, or gallops. Regular heart beat PULMONARY: Chest is clear to auscultation, no wheezing or crackles. ABDOMEN: Soft, nontender, nondistended, normoactive bowel sounds. No palpable organomegaly. MUSCULOSKELETAL: No joint swelling or deformity. EXTREMITIES: No cyanosis, clubbing, or pedal edema. -NEUROLOGICAL: Difficult to assess due to medical condition, patient is confused. No obvious signs of lateralization SKIN: No rashes. no petechiae. - Labs CBC & Chem 7: 01/03/19 05:47 01/03/19 05:47 Labs: Abnormal Lab Results - Last 24 Hours (Table) 01/02/19 01/02/19 01/03/19 Range/Units 16:29 20:34 05:47 RBC 3.66 L (4.30-5.90) m/uL Hgb 10.6 L (13.0-17.5) gm/dL Hct 31.8 L (39.0-53.0) % Lymphocytes # 0.7 L (1.0-4.8) k/uL Chloride (98-107) mmol/L Carbon Dioxide (22-30) mmol/L BUN (9-20) mg/dL Glucose (74-99) mg/dL POC Glucose (mg/dL) 117 H 116 H (75-99) mg/dL 01/03/19 01/03/19 Range/Units 05:47 06:27 RBC (4.30-5.90) m/uL Hgb (13.0-17.5) gm/dL Hct (39.0-53.0) % Lymphocytes # (1.0-4.8) k/uL Chloride 111 H (98-107) mmol/L Carbon Dioxide 20 L (22-30) mmol/L BUN 28 H (9-20) mg/dL Glucose 108 H (74-99) mg/dL POC Glucose (mg/dL) 120 H (75-99) mg/dL Microbiology - Last 24 Hours (Table) 12/31/18 10:59 Blood Culture - Preliminary Blood No Growth after 48 hours 12/31/18 11:05 Blood Culture - Preliminary Blood No Growth after 48 hours Assessment and Plan Assessment: Mitral valve endocarditis with possible multiple septic emboli in the brain Metabolic encephalopathy secondary to above, improving slowly Acute heart block with second to third degree heart block Benign prostatic hypertrophy, Status post Recent surgery of TURP with bacteremia with Streptococcus agalactiae group B Obesity with BMI 31.3 Paroxysmal atrial flutter/fibrillation, Hypertension Hyperlipidemia Hypothyroidism Plan: This is a pleasant 78 years old female who presents with his PE and stroke. Continue with antibiotics as per infectious disease. Follow-up cardiology recommendation. Patient remains critically in the ICU with pulmonary/critical care team, the patient, follow-up recommendation by other consultants. Monitor heart rate and blood pressure. Patient planned to have PEG tube Labs and medication were reviewed.. Continue same treatment. Continue with symptomatic treatment. Resume home medication. Monitor lytes and vitals. DVT and GI prophylaxis. Further recommendations of the clinical course of the patient DVT prophylaxis: Subcutaneous Lovenox GI Prophylaxis: Pepcid Prognosis is guarded
[2019-01-03] MEDS: SODIUM CHLORIDE 0.9% 1,000 ML IV SCH ×3 (08:19→23:13)
[2019-01-03] MEDS: ENOXAPARIN 40 MG/0.4 ML SYRINGE SQ SCH (09:32)
[2019-01-03] MEDS: NITROGLYCERIN OINT 1 INCH/GM PACKET TOPICAL SCH ×3 (09:33→23:19)
[2019-01-03] MEDS: FAMOTIDINE 20 MG/2 ML VIAL IV SCH ×2 (09:33→21:43)
--- NOTE | 2019-01-03 10:35 | CDI ---
Documentation Clarification Form Date: 01/03/2019 10:22:00 AM From: Modesta DuránWalkerPIOTR palacios, CCDS Admit Date: 12/28/2018 3:09:00 PM Patient Name: Ankit Watkins Visit Number: [id number] Discharge Date: ATTENTION: The Clinical Documentation Specialists (CDI) and [facility] Coding Staff appreciate your assistance in clarifying documentation. Please respond to the clarification below the line at the bottom and electronically sign. The CDI & [facility] Coding staff will review the response and follow-up if needed. Please note: Queries are made part of the Legal Health Record. If you have any questions, please contact the author of this message via ITS. Dr. Gail Campos: Per the 01/02 general surgeon consult: " Inadequate protein malnutrition." History/Risk Factors: Atrial Fibrillation, Hyperlipidemia, Hypertension, Hypothyroidism, Recent hospitalization for TURP due to BPH, diagnosed with Sepsis from strep group B. Clinical Indicators: Presented due to lethargy, TURP done two weeks ago. Found to be in complete heart block & diagnosed with infectious endocarditis. Having Hammad-Carrillo breathing, dysphagia. Possible brain stem stroke. Admission labs: WBC 11.0^, Neut 9.5^, Blood gas: pH 7.48^, HCO3 27^, total CO2 28^, O2 Sat 97.5^; BUN 37^, Cr 1.33^, Gluc 156^, Trops 1.140^^, 1.260^^, 1.120^^. Current BMI: 33.1 Consult Dietitian re tube feeding. Gen surgery consulted for possible PEG tube. Nutrition Assessment: Intake: poor. Appearance: overweight. Ht 5 ft 10 in, BMI: 32.2 - 33.1, difficulty swallowing. Made NPO on 01/01 for possible PEG tube, pending cardiology clearance. Treatment: IV Rocephin, IV Vanco, IV Gentamicin, IV Synthroid, IV KCL, IV Apresoline, NGT w/enteral feeding, patient has pulled NGT out twice. In your professional opinion, can you please clarify if these findings signify one of the following conditions? Mild Protein-Calorie Malnutrition Moderate Protein-Calorie Malnutrition Severe Protein-Calorie Malnutrition Other condition, please specify Unable to determine (Last Revision: August 2018) Mild Protein-Calorie Malnutrition ASSESSMENT: 1. Inadequate protein malnutrition with mild protein caloric malnutrition 2. History of stroke with dysphagia 01/05/19 @ 0831 MTDD
--- NOTE | 2019-01-03 10:44 | CDI ---
Documentation Clarification Form Date: 01/03/2019 10:36:23 AM From: Modesta DuránWalkerPIOTR, CCDS Admit Date: 12/28/2018 3:09:00 PM Patient Name: Ankit Watkins Visit Number: [id number] Discharge Date: ATTENTION: The Clinical Documentation Specialists (CDI) and [facility] Coding Staff appreciate your assistance in clarifying documentation. Please respond to the clarification below the line at the bottom and electronically sign. The CDI & [facility] Coding staff will review the response and follow-up if needed. Please note: Queries are made part of the Legal Health Record. If you have any questions, please contact the author of this message via ITS. Dr. Aki Wheeler: Per the Cardiology progress note 12/30: "Non ST-segment elevation myocardial infarction, probably secondary to embolism of the vegetation." Patient History/Risk Factors: Atrial fibrillation, Hyperlipidemia, Hypertension, Hypothyroidism, Former smoker. Clinical Indicators: Presented with lethargy, diagnosed with infectious endocarditis, CVA, asymptomatic bradyarrhythmia & complete AV heart block. Troponin: 1.140^^, 1.260^^, 1.120^^ EKG Results: R 38 sinus bradycardia w/1st degree AV block w/PACs. Treatment: IV fl rate 75, IV Rocephin, IV Synthroid, IV Vanco, IV Gentamicin, IV Kcl, IV Apresoline In order to capture the severity of condition and necessary documentation specificity, please clarify: Myocardial Infarction ruled out Myocardial infarction ruled in, please specify type: o NSTEMI o Myocardial Infarction Type II o Other type of OK, please specify: Unable to determine Other Condition, please specify (Last Revision: November 2016) MTDD
--- NOTE | 2019-01-03 11:07 | P.PN ---
<Selina Arrington Dianna - Last Filed: 01/03/19 11:00> Subjective Progress Note Date: 01/03/19 CHIEF COMPLAINT: Malnutrition HISTORY OF PRESENT ILLNESS: Patient examined this point the bedside. No family present. Patient remains lethargic. Cardiology is on consult for heart block. Echocardiogram is ordered for this morning. PHYSICAL EXAM: VITAL SIGNS: Reviewed GENERAL: Well-developed in no acute distress. Lethargic HEENT: No sclera icterus. Extraocular movements grossly intact. Moist buccal mucosa. Head is atraumatic, normocephalic. No nasal drainage. NECK: Supple without lymphadenopathy. CHEST: Non-labored respirations and equal bilateral excursions. CARDIOVASCULAR: Regular rate with regular rhythm. Palpable 2+ radial pulses. ABDOMEN: Soft. Nondistended. Nontender. MUSCULOSKELETAL: No clubbing or cyanosis. NEUROLOGIC: Patient remains lethargic. Nonverbal at time of examination. SKIN: Well perfused. Good skin turgor. ASSESSMENT: 1. Mild calorie protein malnutrition 2. History of CVA with dysphagia 3. Infective endocarditis 4. Third-degree heart block PLAN: Continue NPO status. Plan is to undergo PEG tube when cleared by cardiology Nurse practitioner note has been reviewed by physician. Signing provider agrees with the documented findings, assessment, and plan of care. Objective - Vital Signs Vital signs: Vital Signs Temp 98.7 F 01/03/19 08:00 Pulse 65 01/03/19 08:00 Resp 18 01/03/19 08:00 BP 168/85 01/03/19 08:00 Pulse Ox 95 01/03/19 08:00 Intake & Output 01/02/19 01/03/19 01/03/19 18:59 06:59 18:59 Intake Total 825 Output Total 565 400 525 Balance 260 -400 -525 Weight 104.5 kg Intake: IV 825 Gentamicin 100 mg In 100 Sodium Chloride 0.9% 100 ml @ 102.5 mls/hr IVPB Q12HR@0000,1200 [facility] Rx#: [id number] Potassium Chloride 10 meq 100 In Water For Injection 1 100ml.bag @ 100 mls/hr IVPB Q1H [facility] Rx#: [id number] Sodium Chloride 0.9% 1, 525 000 ml @ 75 mls/hr IV . [id number] [facility] Rx#:[id number] cefTRIAXone 2 gm In 100 Sodium Chloride 0.9% 50 ml @ 100 mls/hr IVPB Q24HR [facility] Rx#:[id number] Output: Urine 565 400 525 Other: Voiding Method Indwelling Catheter Indwelling Catheter Indwelling Catheter - Labs CBC & Chem 7: 01/03/19 05:47 01/03/19 05:47 Labs: Abnormal Lab Results - Last 24 Hours (Table) 01/02/19 01/02/19 01/03/19 Range/Units 16:29 20:34 05:47 RBC 3.66 L (4.30-5.90) m/uL Hgb 10.6 L (13.0-17.5) gm/dL Hct 31.8 L (39.0-53.0) % Lymphocytes # 0.7 L (1.0-4.8) k/uL Chloride (98-107) mmol/L Carbon Dioxide (22-30) mmol/L BUN (9-20) mg/dL Glucose (74-99) mg/dL POC Glucose (mg/dL) 117 H 116 H (75-99) mg/dL 01/03/19 01/03/19 Range/Units 05:47 06:27 RBC (4.30-5.90) m/uL Hgb (13.0-17.5) gm/dL Hct (39.0-53.0) % Lymphocytes # (1.0-4.8) k/uL Chloride 111 H (98-107) mmol/L Carbon Dioxide 20 L (22-30) mmol/L BUN 28 H (9-20) mg/dL Glucose 108 H (74-99) mg/dL POC Glucose (mg/dL) 120 H (75-99) mg/dL Microbiology - Last 24 Hours (Table) 12/31/18 10:59 Blood Culture - Preliminary Blood No Growth after 48 hours 12/31/18 11:05 Blood Culture - Preliminary Blood No Growth after 48 hours <Gail Campos - Last Filed: 01/05/19 19:40> Subjective No surgical intervention at this time pending cardiology consultation Objective - Vital Signs Vital signs: Vital Signs Temp 98.7 F 01/04/19 04:00 Pulse 51 L 01/04/19 04:00 Resp 21 01/04/19 04:00 BP 151/84 01/04/19 04:00 Pulse Ox 97 01/04/19 04:00 - Labs CBC & Chem 7: 01/04/19 05:50 01/04/19 05:50 Labs: Microbiology - Last 24 Hours (Table) 12/31/18 10:59 Blood Culture - Preliminary Blood No Growth after 120 hours 12/31/18 11:05 Blood Culture - Preliminary Blood No Growth after 120 hours
--- NOTE | 2019-01-03 11:23 | P.PN ---
Subjective Progress Note Date: 01/03/19 Principal diagnosis: Infective endocarditis, third-degree AV block, altered mental status, septic embolic CVA On 01/03/2019 patient seen in follow-up on selective care unit. He is awake and alert, in no acute distress, denies any difficulty breathing, denies any chest pain, denies any discomfort, room air pulse ox is 95%. Patient is afebrile, no cough or congestion, lung sounds are clear, remains in third degree occasionally second and first degree block, however the rate has improved, and is ranging between 48-65 BPM. Urine and blood cultures have been negative. Patient remains on a combination of Rocephin and gentamicin and ID service is following, 0.9 normal saline infusing at a rate of 75 ML per hour. Surgical services have been consulted for possibility of insertion of PEG tube view of patient's dysphagia. Clearance has been requested from cardiology for the surgery, in the meanwhile patient will undergo repeat speech therapy evaluation to reassess his swallowing Objective - Vital Signs Vital signs: Vital Signs Temp 98.7 F 01/03/19 08:00 Pulse 65 01/03/19 08:00 Resp 18 01/03/19 08:00 BP 168/85 01/03/19 08:00 Pulse Ox 95 01/03/19 08:00 Intake & Output 01/02/19 01/03/19 01/03/19 18:59 06:59 18:59 Intake Total 825 Output Total 565 400 525 Balance 260 -400 -525 Weight 104.5 kg Intake: IV 825 Gentamicin 100 mg In 100 Sodium Chloride 0.9% 100 ml @ 102.5 mls/hr IVPB Q12HR@0000,1200 [facility] Rx#: [id number] Potassium Chloride 10 meq 100 In Water For Injection 1 100ml.bag @ 100 mls/hr IVPB Q1H [facility] Rx#: [id number] Sodium Chloride 0.9% 1, 525 000 ml @ 75 mls/hr IV . [id number] [facility] Rx#:[id number] cefTRIAXone 2 gm In 100 Sodium Chloride 0.9% 50 ml @ 100 mls/hr IVPB Q24HR [facility] Rx#:[id number] Output: Urine 565 400 525 Other: Voiding Method Indwelling Catheter Indwelling Catheter Indwelling Catheter - Exam GENERAL EXAM: Alert, 78-year-old white male, on room air comfortable in no apparent distress. Patient has a flat affect HEAD: Normocephalic/atraumatic. EYES: Normal reaction of pupils, equal size. Conjunctiva pink, sclera white. NOSE: Clear with pink turbinates. THROAT: No erythema or exudates. NECK: No masses, no JVD, no thyroid enlargement, no adenopathy. CHEST: No chest wall deformity. Symmetrical expansion. EKG stickers and the remote telemetry box placed on patient's back in view of patient's removal of EKG leads in the monitor, second and third-degree occasionally first-degree block and the rate is 48-65 BPM LUNGS: Equal air entry with no crackles, wheeze, rhonchi or dullness. CVS: Regular rate and rhythm, normal S1 and S2, no gallops, no murmurs, no rubs ABDOMEN: Soft, nontender. No hepatosplenomegaly, normal bowel sounds, no guarding or rigidity. EXTREMITIES: No clubbing, no edema, no cyanosis, 2+ pulses and upper and lower extremities. MUSCULOSKELETAL: Muscle strength and tone normal. SPINE: No scoliosis or deformity SKIN: No rashes CENTRAL NERVOUS SYSTEM: Alert and oriented -2. No focal deficits, tone is normal in all 4 extremities. PSYCHIATRIC: Alert and oriented -2. Appropriate affect. Intact judgment and i nsight. - Labs CBC & Chem 7: 01/03/19 05:47 01/03/19 05:47 Labs: Abnormal Lab Results - Last 24 Hours (Table) 01/02/19 01/02/19 01/03/19 Range/Units 16:29 20:34 05:47 RBC 3.66 L (4.30-5.90) m/uL Hgb 10.6 L (13.0-17.5) gm/dL Hct 31.8 L (39.0-53.0) % Lymphocytes # 0.7 L (1.0-4.8) k/uL Chloride (98-107) mmol/L Carbon Dioxide (22-30) mmol/L BUN (9-20) mg/dL Glucose (74-99) mg/dL POC Glucose (mg/dL) 117 H 116 H (75-99) mg/dL 01/03/19 01/03/19 Range/Units 05:47 06:27 RBC (4.30-5.90) m/uL Hgb (13.0-17.5) gm/dL Hct (39.0-53.0) % Lymphocytes # (1.0-4.8) k/uL Chloride 111 H (98-107) mmol/L Carbon Dioxide 20 L (22-30) mmol/L BUN 28 H (9-20) mg/dL Glucose 108 H (74-99) mg/dL POC Glucose (mg/dL) 120 H (75-99) mg/dL Microbiology - Last 24 Hours (Table) 12/31/18 10:59 Blood Culture - Preliminary Blood No Growth after 48 hours 12/31/18 11:05 Blood Culture - Preliminary Blood No Growth after 48 hours Assessment and Plan Plan: Assessment: 1 infective endocarditis possibly related to recent activity noted the patient encountered post TURP. The patient was infected with strep group B and the patient was hospitalized and received inpatient antibiotic treatment and he was discharged home on oral antibiotic. The patient underwent a THEODORE on 12/29/2018 the patient was found to have a 1 cm mobile echodense structure attached to the posterior mitral leaflet on that she has surface consistent with vegetation. An abscess was not seen. The patient remains on a combination of Rocephin and gentamicin. The patient's heart rate has improved and today he seems to be in a degree AV block. His been off Diprivan for the past 48 hours. 2 third-degree AV block which is alternating with a second-degree AV block and junctional rhythm, likely complication of infective endocarditis, rule out cardiac abscess. this morning he is in a first-degree AV block 3 altered mental status. The patient was found to have multiple areas of stroke/septic emboli and the cortical and subcortical area and the cerebellum. This is possibly related to septic embolization. Clinically improving slowly yet unchanged compared to yesterday. The patient is unable to swallow and he has pulled out his NG tube. 4 Hammad-Carrillo breathing secondary to above, less frequent 5 benign prostatic hypertrophy post TURP 6 hyperlipidemia 7 hypertension, current BP is slightly elevated and the patient is receiving hydralazine 10 mg every 6 hours for tighter blood pressure control. 8 hypothyroidism 9 troponin leak secondary to endocarditis 10 generalized weakness and inability to swallow the patient pulled out his NG tube and we are unable to insert a new tube. Plan: Clinically the patient is stable, no difficulty breathing, he remains in a high degree block, occasionally first-degree block hour with a heart rate is improved, and is ranging between 48-65 BPM. Hemodynamically patient is stable. He has been evaluated by surgical services for possibility of PEG tube insertion, awaiting clearance from cardiology. Remains nothing by mouth, however he will be reevaluated at the bedside by the speech therapy today to reassess his swallowing ability. Continue antibiotic coverage per ID service, so far follow-up blood cultures are negative. No fever or chills, no worsening mentation. I performed a history & physical examination of the patient and discussed their management with my nurse practitioner, Zakiya Vo. I reviewed the nurse practitioner's note and agree with the documented findings and plan of care. Lung sounds are positive for clear breath sounds. The findings and the impression was discussed with the patient. I attest to the documentation by the nurse practitioner. Time with Patient: Less than 30
--- NOTE | 2019-01-03 11:31 | ECHOF ---
Referral Reason:Re-asessment of mitral reguritation MEASUREMENTS -------- HEIGHT: 182.9 cm WEIGHT: 104.3 kg BP: Ao Diam: 3.5 cm (2.0 - 3.7) LA Diam: 4.5 cm (2.7 - 3.8) AV Cusp: 1.6 cm (1.5 - 2.6) MV E Marshal: 1.81 m/s MV DecT: 545 ms MV A Marshal: 1.40 m/s MV E/A Ratio: 1.29 AV maxP.93 mmHg AV meanP.31 mmHg RAP: 5.00 mmHg RVSP: 30.62 mmHg FINDINGS -------- Resting bradycardia (HR<60bpm). Limited Study to re-asess mitral regurge Overall left ventricular systolic function is normal with, an EF between 55 - 60 %. Aortic valve is trileaflet and is mildly thickened. There is mild aortic stenosis present. Peak/m fernando gradient across the Aortic Valve is 24.93mmHg / 13.31mmHg. The mitral valve leaflets are moderately thickened. Moderate mitral annular calcification present. Mild mitral regurgitation is present. Iwwiomnd-fl-pcywhp mitral stenosis. Cannot exclude vegeat ion The tricuspid valve appears structurally normal. Mild tricuspid regurgitation present. Right vent ricular systolic pressure is normal at < 35 mmHg. CONCLUSIONS -------- 1. Resting bradycardia (HR<60bpm). 2. Limited Study to re-asess mitral regurge 3. Overall left ventricular systolic function is normal with, an EF between 55 - 60 %. 4. Aortic valve is trileaflet and is mildly thickened. 5. There is mild aortic stenosis present. 6. Peak/mean gradient across the Aortic Valve is 24.93mmHg / 13.31mmHg. 7. The mitral valve leaflets are moderately thickened. 8. Moderate mitral annular calcification present. 9. Mild mitral regurgitation is present. 10. Vpicococ-ky-cedjga mitral stenosis. 11. Cannot exclude vegeation 12. The tricuspid valve appears structurally normal. 13. Mild tricuspid regurgitation present. 14. Right ventricular systolic pressure is normal at < 35 mmHg. OSS ARCHITECT: Celina Llanes RDCS
[2019-01-03 11:35] LABS: Glucose,Whole Blood 118 mg/dL (75-99)
--- NOTE | 2019-01-03 11:54 | P.PN ---
Subjective Progress Note Date: 01/03/19 Principal diagnosis: Infective endocarditis This is a pleasant 78-year-old gentleman who was admitted to the hospital with infective endocarditis as well as stroke. When the patient presented to the hospital he was bradycardic and he was in complete heart block. The patient was admitted initially to the intensive care unit and subsequently he was transferred to the third floor. The infective endocarditis was confirmed by transesophageal echocardiogram. Currently the patient is on antibiotic. On follow-up with the patient today, he stated having slurred speech. He is difficult to hearing. No indication of chest pain or chest discomfort. He continues to be in AV block but overall he is maintaining good blood pressure and with heart rates. He continues to be on antibiotic. Repeated echocardiogram today revealed normal LV function was possible vegetation on the mitral valve. Objective - Vital Signs Vital signs: Vital Signs Temp 97.9 F 01/03/19 11:23 Pulse 63 01/03/19 11:24 Resp 18 01/03/19 11:24 BP 145/86 01/03/19 11:23 Pulse Ox 96 01/03/19 11:23 Intake & Output 01/02/19 01/03/19 01/03/19 18:59 06:59 18:59 Intake Total 825 Output Total 565 400 525 Balance 260 -400 -525 Weight 104.5 kg Intake: IV 825 Gentamicin 100 mg In 100 Sodium Chloride 0.9% 100 ml @ 102.5 mls/hr IVPB Q12HR@0000,1200 [facility] Rx#: [id number] Potassium Chloride 10 meq 100 In Water For Injection 1 100ml.bag @ 100 mls/hr IVPB Q1H [facility] Rx#: [id number] Sodium Chloride 0.9% 1, 525 000 ml @ 75 mls/hr IV . [id number] [facility] Rx#:[id number] cefTRIAXone 2 gm In 100 Sodium Chloride 0.9% 50 ml @ 100 mls/hr IVPB Q24HR [facility] Rx#:[id number] Output: Urine 565 400 525 Other: Voiding Method Indwelling Catheter Indwelling Catheter Indwelling Catheter - Constitutional General appearance: Present: no acute distress - Respiratory Respiratory: bilateral: diminished - Cardiovascular Rhythm: regular Heart sounds: normal: S1, S2 Abnormal Heart Sounds: Present: systolic murmur - Labs CBC & Chem 7: 01/03/19 05:47 01/03/19 05:47 Labs: Abnormal Lab Results - Last 24 Hours (Table) 01/02/19 01/02/19 01/03/19 Range/Units 16:29 20:34 05:47 RBC 3.66 L (4.30-5.90) m/uL Hgb 10.6 L (13.0-17.5) gm/dL Hct 31.8 L (39.0-53.0) % Lymphocytes # 0.7 L (1.0-4.8) k/uL Chloride (98-107) mmol/L Carbon Dioxide (22-30) mmol/L BUN (9-20) mg/dL Glucose (74-99) mg/dL POC Glucose (mg/dL) 117 H 116 H (75-99) mg/dL 01/03/19 01/03/19 01/03/19 Range/Units 05:47 06:27 11:33 RBC (4.30-5.90) m/uL Hgb (13.0-17.5) gm/dL Hct (39.0-53.0) % Lymphocytes # (1.0-4.8) k/uL Chloride 111 H (98-107) mmol/L Carbon Dioxide 20 L (22-30) mmol/L BUN 28 H (9-20) mg/dL Glucose 108 H (74-99) mg/dL POC Glucose (mg/dL) 120 H 118 H (75-99) mg/dL Microbiology - Last 24 Hours (Table) 12/31/18 10:59 Blood Culture - Preliminary Blood No Growth after 48 hours 12/31/18 11:05 Blood Culture - Preliminary Blood No Growth after 48 hours Assessment and Plan Assessment: Assessment #1 infective endocarditis #2 AV block #3 stroke #4 multiple comorbid conditions Plan #1 continue holding any AV emily roman agents #2 continue monitor the heart rate and blood pressure. So far the patient has been maintaining normal heart rate and normal blood pressure #3 the repeated echocardiogram from today revealed normal with a vegetation on the mitral valve
[2019-01-03] MEDS: GENTAMICIN 100 MG in SODIUM CHLORIDE 0.9% 100 ML IVPB SCH ×2 (13:17→23:13)
--- NOTE | 2019-01-03 15:20 | PN ---
PROGRESS NOTE DATE OF SERVICE: 01/03/2019 REASON FOR FOLLOWUP: Mitral valve endocarditis. INTERVAL HISTORY: The patient is currently afebrile. Patient remains to be slightly weak and lethargic. Oral intake remains to be an issue with possible PEG tube placement today. Heart rate has improved. No nausea, no vomiting and no diarrhea reported. PHYSICAL EXAMINATION: Blood pressure 145/86, pulse of 53, temperature 97.9. he is 96% on room air. General description is an elderly male, up in the bed in no distress. RESPIRATORY SYSTEM: Unlabored breathing with decreased breath sounds in the bases, no wheeze. HEART: S1, S2. Regular rate and rhythm. ABDOMEN; Soft no tenderness. EXTREMITIES: No edema of the feet. LABS: Hemoglobin is 10.5, white count of 10.4, BUN of 28, creatinine 0.95. Blood cultures have been negative. DIAGNOSTIC IMPRESSION AND PLAN: Patient with mitral valve endocarditis and possible septic emboli. The patient's bradyarrhythmia seemed to have improved. The patient is currently covered with Rocephin and gentamicin, kidney function is being monitored closely. He will be cleared to get a PICC line placement for continuation of IV antibiotic therapy in the outpatient setting. Family was at the bedside. Their questions and concerns were answered. MMODL / IJN: [id number] /
[2019-01-03] MEDS: LORazepam 2 MG/ML INJ IV PRN ×2 (15:39→23:34)
[2019-01-03 16:41] LABS: Glucose,Whole Blood 132 mg/dL (75-99)
[2019-01-03 20:30] LABS: Glucose,Whole Blood 106 mg/dL (75-99)
[2019-01-03] MEDS: LEVOTHYROXINE IVP 100 MCG/5 ML VIAL IV SCH (21:42)
[2019-01-04 05:42] VITALS: BP 151/84; PULSE 51; RESP 21; TEMP 98.7
[2019-01-04 06:04] LABS: Glucose,Whole Blood 112 mg/dL (75-99)
[2019-01-04 06:22] LABS: Basophils % (A) 0 %; Eosinophils # (A) 0.2 k/uL (0-0.7); Eosinophils % (A) 3 %; HCT 29.9 % (39.0-53.0); HGB 9.8 gm/dL (13.0-17.5); Hypochromasia Slight; Lymphocytes # (A) 0.7 k/uL (1.0-4.8); Lymphocytes % (A) 12 %; MCH 28.4 pg (25.0-35.0); MCHC 32.6 g/dL (31.0-37.0); MCV 87.1 fL (80.0-100.0); Mean Platelet Volume 6.4; Monocytes # (A) 0.4 k/uL (0-1.0); Monocytes % (A) 6 %; Neutrophils # (A) 4.7 k/uL (1.3-7.7); Neutrophils % (A) 76 %; Platelet Count 253 k/uL (150-450); Poikilocytosis Slight; RBC 3.43 m/uL (4.30-5.90); RDW 14.9 % (11.5-15.5); WBC 6.2 k/uL (3.8-10.6)
[2019-01-04 06:29] LABS: Calcium 8.5 mg/dL (8.4-10.2); Potassium 3.1 mmol/L (3.5-5.1)
--- NOTE | 2019-01-04 07:08 | FL ---
EXAMINATION TYPE: FL barium swallow w video DATE OF EXAM: 01/03/2019 MODIFIED SWALLOW / DEGLUTITION STUDY CLINICAL HISTORY: Dysphagia. TECHNIQUE: Deglutition study is performed utilizing thin liquid barium, honey and nectar thick liqui d barium, barium thick applesauce, and barium coated cracker. Fluoroscopy time of 1 minute and 18 sec onds. 0 fluoroscopic images saved as the examination was video recorded. COMPARISON: None. FINDINGS: Laryngeal penetration and aspiration was seen with the liquid consistency, honey thick cons istency, and nectar thick consistencies (all consistencies administered). IMPRESSION: Aspiration with all consistencies administered. Please refer to speech therapist notes f or further details if necessary.
--- NOTE | 2019-01-04 08:52 | P.PN ---
Subjective Progress Note Date: 01/04/19 Principal diagnosis: Infective endocarditis This is a pleasant 78-year-old gentleman who was admitted to the hospital with infective endocarditis as well as stroke. When the patient presented to the hospital he was bradycardic and he was in complete heart block. The patient was admitted initially to the intensive care unit and subsequently he was transferred to the third floor. The infective endocarditis was confirmed by transesophageal echocardiogram. Currently the patient is on antibiotic. I did see the patient earlier today, 01/04/2019, and he was feeling overall b paula. He does have significant slurred speech. No family member where around him. He continues to be in advanced AV block with variable heart rate but the heart rate has been about 50. The repeated echocardiogram from yesterday revealed normal LV function with vegetation on the mitral valve. Objective - Vital Signs Vital signs: Vital Signs Temp 98.7 F 01/04/19 04:00 Pulse 51 L 01/04/19 04:00 Resp 21 01/04/19 04:00 BP 151/84 01/04/19 04:00 Pulse Ox 97 01/04/19 04:00 Intake & Output 01/03/19 01/04/19 01/04/19 18:59 06:59 18:59 Intake Total 570 Output Total 525 600 Balance -525 -30 Weight 103.5 kg Intake: IV 120 Gentamicin 100 mg In 100 Sodium Chloride 0.9% 100 ml @ 102.5 mls/hr IVPB Q12HR@0000,1200 [facility] Rx#: [id number] Invasive Line 5 20 Intake, IV Titration 450 Amount Sodium Chloride 0.9% 1, 450 000 ml @ 75 mls/hr IV . [id number] HUGO Rx#:[id number] Oral 0 Output: Urine 525 600 Other: Voiding Method Indwelling Catheter Indwelling Catheter - Constitutional General appearance: Present: no acute distress - Respiratory Respiratory: bilateral: diminished - Cardiovascular Rhythm: irregularly irregular Heart sounds: normal: S1, S2 Abnormal Heart Sounds: Present: systolic murmur - Labs CBC & Chem 7: 01/04/19 05:50 01/04/19 05:50 Labs: Abnormal Lab Results - Last 24 Hours (Table) 01/03/19 01/03/19 01/03/19 Range/Units 11:33 16:40 20:28 RBC (4.30-5.90) m/uL Hgb (13.0-17.5) gm/dL Hct (39.0-53.0) % Lymphocytes # (1.0-4.8) k/uL Potassium (3.5-5.1) mmol/L Chloride (98-107) mmol/L BUN (9-20) mg/dL Glucose (74-99) mg/dL POC Glucose (mg/dL) 118 H 132 H 106 H (75-99) mg/dL 01/04/19 01/04/19 01/04/19 Range/Units 05:50 05:50 06:03 RBC 3.43 L (4.30-5.90) m/uL Hgb 9.8 L (13.0-17.5) gm/dL Hct 29.9 L (39.0-53.0) % Lymphocytes # 0.7 L (1.0-4.8) k/uL Potassium 3.1 L (3.5-5.1) mmol/L Chloride 112 H (98-107) mmol/L BUN 31 H (9-20) mg/dL Glucose 104 H (74-99) mg/dL POC Glucose (mg/dL) 112 H (75-99) mg/dL Microbiology - Last 24 Hours (Table) 12/31/18 10:59 Blood Culture - Preliminary Blood No Growth after 72 hours 12/31/18 11:05 Blood Culture - Preliminary Blood No Growth after 72 hours Assessment and Plan Assessment: Assessment #1 infective endocarditis #2 AV block #3 stroke #4 multiple comorbid conditions Plan #1 continue holding any AV emily roman agents #2 continue monitor the heart rate and blood pressure. So far the patient has been maintaining normal heart rate and normal blood pressure #3 the repeated echocardiogram from today revealed normal with a vegetation on the mitral valve
[2019-01-04] MEDS: ENOXAPARIN 40 MG/0.4 ML SYRINGE SQ SCH (09:15)
[2019-01-04] MEDS: NITROGLYCERIN OINT 1 INCH/GM PACKET TOPICAL SCH ×2 (09:15→09:16)
[2019-01-04] MEDS: GENTAMICIN 100 MG in SODIUM CHLORIDE 0.9% 100 ML IVPB SCH (09:15)
[2019-01-04] MEDS: FAMOTIDINE 20 MG/2 ML VIAL IV SCH ×2 (09:15→09:16)
[2019-01-04] MEDS: SODIUM CHLORIDE 0.9% 1,000 ML IV SCH (09:16)
--- NOTE | 2019-01-04 09:23 | P.DS ---
Providers Date of admission: 12/28/18 15:09 Attending physician: Isrrael Galeano Consults: 12/28/18 15:55 Consult Physician Stat Consulting Provider: Radha Mcbride Consult Reason/Comments: icu Do you want consulting provider notified?: Already Contacted Consult Physician Stat Consulting Provider: Azul Tirado Consult Reason/Comments: lethargy, altered mental status Do you want consulting provider notified?: Yes Consult Physician Urgent Consulting Provider: Aki Wheeler Consult Reason/Comments: complete heart block Do you want consulting provider notified?: Already Contacted 12/28/18 16:59 Consult Physician Routine Consulting Provider: Nubia Raphael Consult Reason/Comments: uti Do you want consulting provider notified?: Yes 12/29/18 12:59 Consult Physician Stat Consulting Provider: Terence Alicea Consult Reason/Comments: Vegitation of mitral valve Do you want consulting provider notified?: Already Contacted 01/02/19 12:34 Consult Physician Stat Consulting Provider: Gail Campos Consult Reason/Comments: Possible peg tube placement Do you want consulting provider notified?: Yes Primary care physician: Stated None Hospital Course: Diagnoses: 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 Patient admitted on the care of Dr. Galeano. Patient could not provide information so were taken from the records 2 weeks prior to that patient had undergone TURP by from urology. Patient was then admitted with confusion. Blood cultures were positive for Streptococcus agalactiae group B. Patient is put on IV ceftriaxone and blood cultures were negative prior to discharge. Patient was switched over to Ceftin. Also was found to have an atrial fibrillation. And patient is put on eliquis. Patient was subsequently was discharged to [facility] inpatient rehab under Dr. Darby. Patient is doing well there. And patient became short of breath. Found to be in pulmonary edema. Patient had been diagnosed with second degree heart block here at [facility] and had been seen by cardiology. Plan was not to do any further intervention. Subsequently from the inpatient rehab patient was moved to the medical floor. And then was put on dobutamine drip and motor the ICU. Was a concern about putting the transvenous pacemaker because of underlying infection. Patient subsequently became lethargic. And because no neurology service was available he was transferred to the current hospital. Neurology consult was done, CT showing possible hypodense lesion in the left reinier, THEODORE showing vegetation, MRI of the brain showing multiple areas of stroke likely from infective endocarditis which can cause ischemic stroke along with mycotic aneurysm. EEG: Showing mild diffuse cerebral dysfunction with no epileptiform seizure activity. Patient had ibis-stroke breathing. Patient is put on IV antibiotics of ceftriaxone and gentamicin as well as IV fluids. Cardiology are following the patient for heart block. Patient has been followed by several consultants including neurology, cardiology, pulmonary/critical care unit, infectious disease. Patient eventually transferred to the general medical floor over the last 2 days however he has been confused. Patient went from sinus rhythm V. fib around 8:30 in the morning when patient was . Discussed with staff and they going to inform the family Physical examination: Prior to the constipation was confused, round and reactive to light, he had a bradycardia with chest exam showing no wheezing or crackles, abdomen was soft and nontender, and neurological examination was difficult to assess with skin showing no rash or petechiae. After the code patient was found unresponsive, no breathing activity, no heart beat, abdomen remained soft, Pupils were dilated and nonreactive to light and absent reflexes. Time spent more than 35 minutes Plan - Discharge Summary Discharge Rx Participant: Yes New Discharge Prescriptions: No Action Simvastatin [Zocor] 20 mg PO HS Enalapril/Hydrochlorothiazide [Enalapril-Hctz 10-25 mg Tablet] 1 tab PO DAILY Apixaban [Eliquis] 5 mg PO BID #60 tab Cefuroxime Axetil [Ceftin] 500 mg PO BID #22 tab Atenolol [Tenormin] 25 mg PO DAILY Levothyroxine Sodium [Synthroid] 88 mcg PO DAILY Discharge Medication List Enalapril/Hydrochlorothiazide [Enalapril-Hctz 10-25 mg Tablet] 1 tab PO DAILY 01/22/17 [History] Simvastatin [Zocor] 20 mg PO HS 01/22/17 [History] Apixaban [Eliquis] 5 mg PO BID #60 tab 12/23/18 [Rx] Cefuroxime Axetil [Ceftin] 500 mg PO BID #22 tab 12/23/18 [Rx] Atenolol [Tenormin] 25 mg PO DAILY 12/28/18 [History] Levothyroxine Sodium [Synthroid] 88 mcg PO DAILY 12/28/18 [History]
[2019-01-04] MEDS ORDERED: GENTAMICIN TROUGH DUE 1 EACH MISC MISCELLANE ONE (11:00)
[2019-01-04] MEDS ORDERED: GENTAMICIN PEAK DUE 1 EACH MISC MISCELLANE ONE (13:30)
--- NOTE | 2019-01-11 07:24 | CDI ---
Documentation Clarification Form Date: 01/03/2019 10:36:00 AM From: Modesta DuránWalkerPIOTR, CCDS Admit Date: 12/28/2018 3:09:00 PM Patient Name: Ankit Watkins Visit Number: [id number] Discharge Date: 01/04/2019 11:05:00 AM ATTENTION: The Clinical Documentation Specialists (CDI) and [facility] Coding Staff appreciate your assistance in clarifying documentation. Please respond to the clarification below the line at the bottom and electronically sign. The CDI & [facility] Coding staff will review the response and follow-up if needed. Please note: Queries are made part of the Legal Health Record. If you have any questions, please contact the author of this message via ITS. Dr. Vu Sheet: Per the Cardiology progress note 12/30: "Non ST-segment elevation myocardial infarction, probably secondary to embolism of the vegetation." Myocardial infarction is not documented in the discharge summary. Patient History/Risk Factors: Atrial fibrillation, Hyperlipidemia, Hypertension, Hypothyroidism, Former smoker. Clinical Indicators: Presented with lethargy, diagnosed with infectious endocarditis, CVA, asymptomatic bradyarrhythmia & complete AV heart block. Troponin: 1.140^^, 1.260^^, 1.120^^ EKG Results: R 38 sinus bradycardia w/1st degree AV block w/PACs. Treatment: IV fl rate 75, IV Rocephin, IV Synthroid, IV Vanco, IV Gentamicin, IV Kcl, IV Apresoline In order to capture the severity of condition and necessary documentation specificity, please clarify: Myocardial Infarction ruled out Myocardial infarction ruled in, please specify type: NSTEMI Myocardial Infarction Type II Other type of WI, please specify: Unable to determine Other Condition, please specify (Last Revision: November 2016) Unable to determine MTDD
== END 2019-01-04 11:05 | disposition expired | DRG 288 ==
LOC: 2SICU 15:09 → 3SCARD 01-02 16:11
PROVIDERS: ADMIT Hospitalist; ATTEND Hospitalist
DX: I33.0 Acute and subacute infective endocarditis (principal); G93.41 Metabolic encephalopathy; I63.40 Cerebral infarction due to embolism of unspecified cerebral artery; I63.449 Cerebral infarction due to embolism of unspecified cerebellar artery; E44.1 Mild protein-calorie malnutrition; I44.2 Atrioventricular block, complete; I45.89 Other specified conduction disorders; I48.92 Unspecified atrial flutter; I76 Septic arterial embolism; J81.1 Chronic pulmonary edema; B95.5 Unspecified streptococcus as the cause of diseases classified elsewhere; E03.9 Hypothyroidism, unspecified; E66.9 Obesity, unspecified; E78.5 Hyperlipidemia, unspecified; I10 Essential (primary) hypertension; I48.0 Paroxysmal atrial fibrillation; Z66 Do not resuscitate; I49.01 Ventricular fibrillation; I69.391 Dysphagia following cerebral infarction; L08.9 Local infection of the skin and subcutaneous tissue, unspecified; N40.0 Benign prostatic hyperplasia without lower urinary tract symptoms; Z68.31 Body mass index [BMI] 31.0-31.9, adult; Z79.01 Long term (current) use of anticoagulants; Z79.890 Hormone replacement therapy; Z79.899 Other long term (current) drug therapy; Z87.891 Personal history of nicotine dependence; Z88.0 Allergy status to penicillin; Z90.79 Acquired absence of other genital organ(s); R40.2144 Coma scale, eyes open, spontaneous, 24 hours or more after hospital admission; R40.2364 Coma scale, best motor response, obeys commands, 24 hours or more after hospital admission; R40.2244 Coma scale, best verbal response, confused conversation, 24 hours or more after hospital admission
CPT/HCPCS: 36600; 70450; 70551; 71045; 74018; 74230; 80048; 80053; 80170; 81001; 82140; 82607; 82805; 83605; 83735; 84100; 84145; 84443; 84484; 85025; 85610; 85730; 86780; 87040; 87086; 93308; 93312; 93325; 95819